=== PATIENT | female | born 1955 | race Caucasian/White ===

== ENCOUNTER 2018-11-25 08:40 | Outpatient (CLI) | payer MEDICARE, MEDICAID ==
--- NOTE | 2018-11-25 10:10 | BD ---
DEXA BONE DENSITOMETRY: (Dual energy X-ray Absorptiometry) DATE: 11/25/2018. HISTORY: A 63-year-old white female for postmenopausal, age-related osteoporosis screening examination. COMPARISON: None available. FINDINGS: The bone mineral density (BMD) is given in grams per square centimeter (g/cm2): Height 64 inches. Weight 149 pounds. Age of menopause 41 years. LUMBAR SPINE: BMD(g/cm2) T-score Z-score L1: 0.729 -2.4 -1.0 L2: 0.715 -2.8 -1.3 L3: 0.697 -3.5 -1.9 L4: 0.635 -3.9 -2.2 Total: 0.694 -3.2 -1.7 HIP: Femoral neck: 0.498 -3.2 -1.8 Total: 0.673 -2.2 -1.2 IMPRESSION: 1) The mean bone mineral density of the lumbar spine is osteoporotic. Fracture risk is high. 2) The bone mineral density of the femoral neck is osteoporotic. Fracture risk is high. BETH Rutherford POS: IAN
== END 2018-11-25 08:41 | disposition home or self-care (01) ==
LOC: BICMAMMO 08:40
PROVIDERS: ATTEND Internal Medicine Rheumatology
DX: M81.0 Age-related osteoporosis without current pathological fracture (principal)
CPT/HCPCS: 77080

== ENCOUNTER 2019-02-13 08:36 | Outpatient (CLI) | payer MEDICARE, MEDICAID ==
--- NOTE | 2019-02-17 06:46 | MMO ---
Bilateral MAMMO Bilat Screen [facility]FL[facility]. CLINICAL HISTORY: Patient is 63 years old and is seen for screening. The patient has the following family history of breast cancer: cousin female, at age 45, MATERNAL X2. The patient has no personal history of cancer. VIEWS: The views performed were: bilateral craniocaudal with tomosynthesis and bilateral mediolateral oblique with tomosynthesis. FILMS COMPARED: The present examination has been compared to prior imaging studies performed at [facility] on 09/24/2007, 02/10/2009, 02/13/2010 and 08/28/2016. MAMMOGRAM FINDINGS: There are scattered fibroglandular densities. There are no suspicious masses, suspicious calcifications, or new areas of architectural distortion. IMPRESSION: THERE IS NO MAMMOGRAPHIC EVIDENCE OF MALIGNANCY. A ROUTINE FOLLOW-UP MAMMOGRAM IN 1 YEAR IS RECOMMENDED. THE RESULTS OF THIS EXAM WERE SENT TO THE PATIENT. ACR BI-RADS Category 1 - Negative MAMMOGRAPHY NOTE: 1. A negative mammogram report should not delay a biopsy if a dominant of clinically suspicious mass is present. 2. Approximately 10% to 15% of breast cancers are not detected by mammography. 3. Adenosis and dense breasts may obscure an underlying neoplasm. Reported by: BRAD CLARKE MD Electonically Signed: [id number]
== END 2019-02-13 08:37 | disposition home or self-care (01) ==
LOC: BICMAMMO 08:36
PROVIDERS: ATTEND Family Medicine
DX: Z12.31 Encounter for screening mammogram for malignant neoplasm of breast (principal); Z80.3 Family history of malignant neoplasm of breast
CPT/HCPCS: 77063; 77067

== ENCOUNTER 2019-05-05 12:08 | Outpatient (CLI) | payer MEDICARE, OTHER ==
[~2019-05-05 12:08] MED LIST: ISOVUE-370 76%-LOCM 1 ML ONE
--- NOTE | 2019-05-05 13:28 | CT ---
Exam: Chest CT scan with IV contrast: HISTORY: Follow-up lung mass COMPARISON: Chest 2 views, 04/24/2019 FINDINGS: The previously noted mass opacity seen in the right middle lobe on the prior study is no longer evide nt. There is some scattered linear parenchymal changes in the right middle lobe evidence for mild pneumonitis or subsegmental atelectasis or chronic change. There is some very minute linear parenchym al changes in the lingula. There is bilateral peribronchial thickening. There is no mediastinal mass or adenopathy. No pleural effusion or pericardial effusion. Visualized upper abdomen is unremark able. Small calcified granuloma in the right middle lobe. IMPRESSION: Some persistent linear stranding in the right middle lobe and very minute linear stranding in the bisi gula, nonspecific. This could represent some minimal persistent pneumonitis, partial atelectasis, or scarring. Consider 6 month follow-up chest CT scan for further assessment. Bilateral peribronchial thickening, nonspecific, possibly related to chronic bronchitis.
== END 2019-05-05 12:09 | disposition home or self-care (01) ==
LOC: BICCT 12:08
PROVIDERS: ATTEND Family Medicine
DX: R91.8 Other nonspecific abnormal finding of lung field (principal); J98.4 Other disorders of lung
CPT/HCPCS: 71260; 82565; Q9966

== ENCOUNTER 2019-05-21 21:50 | Inpatient (IN) | payer MEDICARE, OTHER ==
[2019-05-21 22:24] LABS: #Eosinphils 0.1 thou/uL (0.0-0.7); #Lymphocytes 2.6 thou/uL (1.20-3.40); #Monocytes 0.8 thou/uL (0.11-0.59); #Neutrophils 5.2 thou/uL (1.40-6.50); %Basophils 0.3 % (0.0-1.0); %Eosinophils 1.6 % (0.0-10.0); %Lymphocytes 29.1 % (21.0-51.0); %Monocytes 9.4 % (0.0-10.0); %Neutrophils 59.7 % (42.0-75.0); Hemoglobin 12.4 g/dL (12.0-16.0); Mean Corpuscular HGB CONC 33.3 g/dL (32.0-36.0); Mean Corpuscular Hemoglobin 29.7 pg (27.0-31.0); Mean Corpuscular Volume 89.1 fL (78.0-98.0); Mean Platelet Volume 6.6 fL (7.4-10.4); Platelet Count 244 thou/uL (130-400); RBC Distribution Width 13.5 % (11.5-14.5); Red Blood Cell (RBC) Count 4.16 mill/uL (4.20-5.40); White Blood Cell (WBC) Count 8.8 thou/uL (4.8-10.8)
--- NOTE | 2019-05-21 22:33 | RAD ---
EXAM: Chest one view: HISTORY: COPD exacerbation COMPARISON: 04/24/2019 FINDINGS: Stable increased linear and interstitial markings noted bilaterally without evidence for confluent pr ocess. The previously noted somewhat nodular parenchymal process in the right lower chest has resolved. Heart size: Within normal limits. Lungs: Clear of acute process. No evidence for confluent pneumonia, pleural effusion, acute edema, or pneumothorax, or other signifi cant acute process. IMPRESSION: No significant acute intrathoracic disease. Stable chronic lung changes. Atherosclerosis of the aorta.
[2019-05-21 22:45] LABS: ALT (SGPT) 15 U/L (8-55); AST (SGOT) 15 U/L (5-34); Albumin 4.1 g/dL (3.4-4.8); Alkaline Phosphatase 78 U/L (40-110); Anion Gap 10 mmol/L (10-20); BUN (Urea Nitrogen) 22 mg/dL (9.8-20.1); Bilirubin, Total 0.5 mg/dL (0.2-1.2); Calc. Creatinine Clearance 0 mL/min (70-130); Carbon Dioxide 31 mmol/L (23-31); Chloride 104 mmol/L (98-107); Estimated GFR-MDRD 63; Globulin 2.9 g/dL (2.4-3.5); Glucose 139 mg/dL (80-115); Lipase 21 U/L (8-78); Potassium 4.1 mmol/L (3.5-5.1); Sodium 141 mmol/L (136-145)
[2019-05-21] MEDS ORDERED: Albuterol Sulfate 2.5 mg/0.5 ml Neb ONE (23:05)
[2019-05-21] MEDS ORDERED: Albuterol Sulfate 2.5 mg/3 ml Neb ONE (23:31)
[2019-05-22] MEDS ORDERED: Bacteriostatic Water 30 ML VIAL FS PRN (02:55)
[2019-05-22] MEDS ORDERED: Ondansetron PF 4 MG/2 ML Vial IVP PRN (02:57)
[2019-05-22] MEDS ORDERED: Ondansetron ODT 4 MG TAB SL PRN (02:57)
[2019-05-22] MEDS ORDERED: Albuterol Sulfate 2.5 mg/3 ml Neb NEB PRN (02:57)
[2019-05-22] MEDS ORDERED: Acetaminophen 325 MG TAB PO PRN ×2 (02:57→11:39)
[2019-05-22 03:14] VITALS: BMI 25.0
[2019-05-22] MEDS ORDERED: methylPREDNISolone Sod Succ/PF 125 MG/2 ML VIAL IVP SCH (04:00)
[2019-05-22] MEDS ORDERED: Prevnar 13-Val Conj/PF 0.5 ML SYRINGE IM ONE (09:00)
[2019-05-22] MEDS ORDERED: FLU VACC QS2019-20(6MOS UP)/PF 60 MCG/0.5 ML SYRINGE IM ONE (09:00)
[2019-05-22] MEDS ORDERED: Bisacodyl 5 MG TAB PO PRN (11:39)
[2019-05-22] MEDS: Azithromycin 500 MG in Sodium Chloride 0.9% 250 ML 250 ML IVPB SCH (12:20)
[2019-05-22] MEDS: methylPREDNISolone Sod Succ 40 MG VIAL IVP SCH ×2 (12:20→17:03)
[2019-05-22] MEDS: cefTRIAXone\\ROCEPHIN 1 GM in Sodium Chloride 0.9% 100 ML IVPB SCH (13:54)
--- NOTE | 2019-05-22 13:59 | HP ---
PRIMARY CARE PROVIDER: Mart Velasquez MD CHIEF COMPLAINT: Shortness of breath. HISTORY OF PRESENT ILLNESS: Ms. iLma is a pleasant 64-year-old lady, who was seen at [facility] on May 22, 2019, She has a history of COPD, followed by Dr. Grimes. She reports that she saw him a couple of weeks ago. Over the last week, she developed cough. Cough was productive of thick yellow sputum. She also reports shortness of breath over the last day. Shortness of breath is worse with exertion. She denies any fevers or chills. She denies any nausea or vomiting. She denies any abdominal pain. REVIEW OF SYSTEMS: All systems were reviewed and found to be negative except for the pertinent positives mentioned above. PAST MEDICAL HISTORY: COPD, lupus, hypothyroidism, dyslipidemia and gastroesophageal reflux disease. PAST SURGICAL HISTORY: None. FAMILY HISTORY: Significant for heart disease in her mother's side of family. SOCIAL HISTORY: The patient is an ex-smoker. She denies recreational drug use or alcohol use. ALLERGIES: CODEINE AND SULFA. CURRENT MEDICATIONS: 1. Symbicort 160/4.5, two puffs 2 times a day. 2. Nexium 40 mg daily. 3. Plaquenil 200 mg 2 times a day. 4. Synthroid 75 mcg daily. 5. Pravastatin 40 mg daily. 6. Prednisone 5 mg daily. 7. Solifenacin 5 mg daily. PHYSICAL EXAMINATION: GENERAL: Ms. Lima is awake and alert, not in acute distress. VITAL SIGNS: Blood pressure is 113/64, pulse 84, respiratory rate 17, and oxygen saturation 90% on 1 L of oxygen by nasal cannula. BMI is 25.1. EYES: No scleral icterus, no conjunctival pallor. ENT: Moist mucosal membranes. No oropharyngeal erythema or exudates. NECK: Supple, nontender, trachea is midline. RESPIRATORY: Accessory muscles of breathing are not active. Chest wall movements are symmetric bilaterally. Markedly diminished breath sounds at both bases. ABDOMEN: Soft, nontender, bowel sounds heard. NEUROLOGIC: Cranial nerves 2 through 12 are intact. MUSCULOSKELETAL: Power is 5/5 in all 4 extremities. SKIN: No rashes. LYMPHATIC: No cervical lymphadenopathy. PSYCHIATRIC: Normal mood, normal affect, the patient is oriented to person, place, and time. LABORATORY DATA: Ms. Lima's labs and investigations were reviewed. I reviewed her electrocardiogram, which shows normal sinus rhythm, no ST changes to suggest any acute coronary syndrome. I also reviewed her chest x-ray, which does not show any pulmonary infiltrates. She has normal white count, normal hemoglobin, normal platelet count, elevated blood urea nitrogen of 22, otherwise unremarkable comprehensive metabolic profile, normal BNP of 16.5 and normal troponin-I of less than 0.010. ASSESSMENT AND PLAN: Ms. Lima is a pleasant 64-year-old lady, who was seen at [facility] on May 22, 2019, Her problem list includes: 1. Chronic obstructive pulmonary disease exacerbation: Ms. Lima is presenting with COPD exacerbation. She will be treated with oxygen, steroids, bronchodilators, and antibiotics. We will also consult Pulmonology Service for opinion and help with management. 2. Lupus: We will continue Plaquenil. The patient is being treated with IV steroids for chronic obstructive pulmonary disease exacerbation, we will hold prednisone. 3. Hypothyroidism: Continue Synthroid. 4. Dyslipidemia: Continue statin. 5. Gastroesophageal reflux disease: Continue PPI. Many thanks for allowing me to participate in your patient's care. Please feel free to contact me with any questions or concerns. LEVEL OF RISK: High. LEVEL OF COMPLEXITY: High. Job ID: [id number]
[2019-05-22] MEDS: Mometasone/Formoterol 120 PUFF INHALER INH SCH (18:59)
[2019-05-22] MEDS: Atorvastatin Calcium 10 MG TAB PO SCH (20:25)
[2019-05-22] MEDS: Hydroxychloroquine Sulfate 200 MG TAB PO SCH (20:25)
[2019-05-22] MEDS: Trospium 20 MG TAB PO SCH (20:25)
[2019-05-23] MEDS: methylPREDNISolone Sod Succ 40 MG VIAL IVP SCH ×4 (00:54→18:00)
[2019-05-23] MEDS: Levothyroxine Sodium 75 MCG TAB PO SCH (05:26)
[2019-05-23] MEDS: Trospium 20 MG TAB PO SCH ×2 (08:04→20:19)
[2019-05-23] MEDS: Hydroxychloroquine Sulfate 200 MG TAB PO SCH ×2 (08:04→20:19)
[2019-05-23] MEDS: Enoxaparin Sodium 40 MG/0.4 ML SYRINGE SC SCH (08:04)
[2019-05-23 08:56] LABS: Anion Gap 12 mmol/L (10-20); BUN (Urea Nitrogen) 16 mg/dL (9.8-20.1); Calc. Creatinine Clearance 80 mL/min (70-130); Calcium 9.5 mg/dL (7.8-10.44); Carbon Dioxide 25 mmol/L (23-31); Chloride 107 mmol/L (98-107); Estimated GFR-MDRD 77; Glucose 190 mg/dL (80-115); Potassium 3.9 mmol/L (3.5-5.1); Sodium 140 mmol/L (136-145)
[2019-05-23 09:54] LABS: Band 33 % (5-11); Hemoglobin 12.9 g/dL (12.0-16.0); Lymphocytes 4 % (21-51); MDiff Complete? YES; Mean Corpuscular HGB CONC 32.7 g/dL (32.0-36.0); Mean Corpuscular Hemoglobin 29.6 pg (27.0-31.0); Mean Corpuscular Volume 90.6 fL (78.0-98.0); Mean Platelet Volume 6.9 fL (7.4-10.4); Monocytes 3 % (0-10); Neutrophil 58 % (42-75); Platelet Count 334 thou/uL (130-400); RBC Distribution Width 13.8 % (11.5-14.5); Reactive Lymphocytes 2 % (0-10); Red Blood Cell (RBC) Count 4.35 mill/uL (4.20-5.40); Rouleaux Formation SLIGHT = 1-5 cells (100X) (None Seen); White Blood Cell (WBC) Count 18.4 thou/uL (4.8-10.8)
[2019-05-23] MEDS: Mometasone/Formoterol 120 PUFF INHALER INH SCH ×2 (11:05→18:33)
[2019-05-23] MEDS: Azithromycin 500 MG in Sodium Chloride 0.9% 250 ML 250 ML IVPB SCH (11:51)
[2019-05-23] MEDS: cefTRIAXone\\ROCEPHIN 1 GM in Sodium Chloride 0.9% 100 ML IVPB SCH (13:10)
[2019-05-23] MEDS: Atorvastatin Calcium 10 MG TAB PO SCH (20:19)
--- NOTE | 2019-05-23 22:36 | CON ---
DATE OF CONSULTATION: SUBJECTIVE: Rufina Lima is a pleasant 64-year-old female with COPD, who is followed by Dr. Grimes. She presented with complaints of shortness of breath over the last week associated with cough and thick sputum. She presented to the emergency room, subsequently admitted. PAST MEDICAL HISTORY: Remarkable for; 1. COPD. 2. Hypothyroidism. 3. Lipid disorder. 4. Reflux disease. 5. Reported history of lupus. FAMILY HISTORY: Positive for vascular disease. No history of lung disease at an early age. She no longer smokes. She does not drink. ALLERGIES: SHE IS ALLERGIC TO CODEINE AND SULFA. MEDICATIONS: Have been reviewed. REVIEW OF SYSTEMS: 10 points is negative. She says she is feeling better, but she is nowhere near her baseline. PHYSICAL EXAMINATION: VITAL SIGNS: Heart rate 105 earlier today, 78 this afternoon; respiratory rate in the teens, oximetry is 95%. HEENT: Pupils are equal. Sclerae anicteric. NECK: Supple. LUNGS: Remarkable for distant breath sounds. HEART: Regular rhythm. S1, S2 are normal. ABDOMEN: Soft and nontender. EXTREMITIES: Without clubbing, cyanosis, or edema. NEUROLOGIC: Nonfocal. IMAGING DATA: Chest radiographs have been reviewed. No infiltrates. LABORATORY DATA: White count 18.4, hemoglobin 12.9, platelets 334. Electrolytes are normal. Creatinine is 0.76. Albumin was 4.1. IMPRESSION: Chronic obstructive pulmonary disease exacerbation. PLAN: Steroids, nebulized treatments, fluids. We will be happy to follow with the other physicians caring for her. Hopefully, she will be a candidate to go home by Saturday or Saturday. Job ID: [id number] 50 minute consult with 50% of time on unit coordinating care [facility]
[2019-05-24] MEDS: methylPREDNISolone Sod Succ 40 MG VIAL IVP SCH ×4 (00:31→20:23)
[2019-05-24] MEDS: Levothyroxine Sodium 75 MCG TAB PO SCH (05:33)
[2019-05-24 06:11] LABS: Anion Gap 13 mmol/L (10-20); BUN (Urea Nitrogen) 20 mg/dL (9.8-20.1); Calc. Creatinine Clearance 79 mL/min (70-130); Calcium 9.4 mg/dL (7.8-10.44); Carbon Dioxide 28 mmol/L (23-31); Chloride 104 mmol/L (98-107); Estimated GFR-MDRD 76; Glucose 206 mg/dL (80-115); Magnesium 2.4 mg/dL (1.6-2.6); Potassium 4.9 mmol/L (3.5-5.1); Sodium 140 mmol/L (136-145)
[2019-05-24 06:32] LABS: Band 8 % (5-11); Hemoglobin 12.2 g/dL (12.0-16.0); Lymphocytes 5 % (21-51); MDiff Complete? YES; Mean Corpuscular HGB CONC 32.1 g/dL (32.0-36.0); Mean Corpuscular Hemoglobin 29.1 pg (27.0-31.0); Mean Corpuscular Volume 90.6 fL (78.0-98.0); Mean Platelet Volume 6.8 fL (7.4-10.4); Monocytes 4 % (0-10); Neutrophil 83 % (42-75); Platelet Count 343 thou/uL (130-400); RBC Distribution Width 13.8 % (11.5-14.5); White Blood Cell (WBC) Count 16.2 thou/uL (4.8-10.8)
[2019-05-24] MEDS: Hydroxychloroquine Sulfate 200 MG TAB PO SCH ×2 (08:30→20:23)
[2019-05-24] MEDS: Enoxaparin Sodium 40 MG/0.4 ML SYRINGE SC SCH (08:30)
[2019-05-24] MEDS: Trospium 20 MG TAB PO SCH ×2 (08:30→20:22)
[2019-05-24] MEDS: Mometasone/Formoterol 120 PUFF INHALER INH SCH ×2 (08:34→19:23)
--- NOTE | 2019-05-24 09:16 | PDOC.HOSPP ---
- Subjective Encounter Date: 05/23/19 Encounter Time: 09:15 Subjective: Patient seen and examined for COPD exacerbation. SOB/Wheezing improving. Dry cough +. No new complaints. No overnight events - Objective Vital Signs & Weight: Vital Signs (12 hours) Temp Pulse Resp BP Pulse Ox 05/24/19 08:34 86 16 05/24/19 08:25 86 16 96 05/24/19 07:49 98.0 F 92 20 137/74 93 L Weight Weight 146 lb I&O: 05/23/19 05/24/19 05/25/19 06:59 06:59 06:59 Intake Total 830 1400 Balance 830 1400 Result Diagrams: 05/24/19 05:36 05/24/19 05:36 Radiology Reviewed by me: Yes (CXR - no infiltrate) Hospitalist ROS - Review of Systems Respiratory: reports: SOB with excertion, wheezing Cardiovascular: denies: chest pain, palpitations, orthopnea, paroxysmal noc. dyspnea, edema, light headedness, other Gastrointestinal: denies: nausea, vomiting, abdominal pain, diarrhea, constipation, melena, hematochezia, other - Medication Medications: Active Medications Generic Name Dose Route Start Last Admin Trade Name Freq PRN Reason Stop Dose Admin Albuterol/Ipratropium 3 ml 05/23/19 15:00 05/24/19 08:25 Duoneb NEB 3 ml [id number] MAKENNA Administration Atorvastatin Calcium 10 mg 05/22/19 21:00 05/23/19 20:19 Lipitor PO 10 mg HS MAKENNA Administration Hydroxychloroquine Sulfate 200 mg 05/22/19 21:00 05/24/19 08:30 Plaquenil PO 200 mg BID MAKENNA Administration Azithromycin 500 mg/ Sodium 250 mls @ 250 mls/hr 05/22/19 12:00 05/23/19 11: 51 Chloride IVPB 250 mls Q24HR MAKENNA Administration Ceftriaxone Sodium 1 gm/ 100 mls @ 200 mls/hr 05/22/19 13:00 05/23/19 13:10 Sodium Chloride IVPB 100 mls 1300 MAKENNA Administration Levothyroxine Sodium 75 mcg 05/23/19 06:00 05/24/19 05:33 Synthroid PO 75 mcg 0600 MAKENNA Administration Mometasone Furoate/Formoterol Fumar 2 puff 05/22/19 18:30 05/24/19 08:34 Dulera 200 Mcg/5 Mcg Inhaler INH 2 puff BID-RT MAKENNA Administration Pantoprazole Sodium 40 mg 05/23/19 09:00 05/24/19 08:30 Protonix PO 40 mg DAILY MAKENNA Administration Trospium 20 mg 05/22/19 21:00 05/24/19 08:30 Trospium PO 20 mg BID MAKENNA Administration - Exam General Appearance: NAD Heart: RRR, no gallops Respiratory: no rales, no ronchi, normal chest expansion, wheezes Gastrointestinal: soft, non-tender, non-distended, normal bowel sounds Extremities: no edema Neurological: no new deficit Hosp A/P - Plan DVT proph w/SCDs Acute hypoxic resp failure/COPD Exacerbation - POA HLD GERD Hypothyrodism CKD 2 Former smoker SLE PLAN: Cont Steroids/Atbx Add O2 humification Cont Levothyroxine Add Mucinex Cont other meds
[2019-05-24] MEDS ORDERED: Saccharomyces boulardii 250 MG CAP PO SCH (10:30)
[2019-05-24] MEDS ORDERED: guaiFENesin ER 600 MG TAB PO SCH (11:00)
[2019-05-24] MEDS: Azithromycin 500 MG in Sodium Chloride 0.9% 250 ML 250 ML IVPB SCH (12:06)
[2019-05-24] MEDS: cefTRIAXone\\ROCEPHIN 1 GM in Sodium Chloride 0.9% 100 ML IVPB SCH (12:09)
--- NOTE | 2019-05-24 12:55 | PDOC.HOSPP ---
- Subjective Encounter Date: 05/24/19 Encounter Time: 11:45 Subjective: Patient seen and examined for Resp failure. Dry cough. SOB improving. No other complaints. No overnight events - Objective Vital Signs & Weight: Vital Signs (12 hours) Temp Pulse Resp BP Pulse Ox 05/24/19 12:04 92 20 05/24/19 08:34 86 16 05/24/19 08:25 86 16 96 05/24/19 08:00 94 L 05/24/19 07:49 98.0 F 92 20 137/74 93 L Weight Weight 146 lb I&O: 05/23/19 05/24/19 05/25/19 06:59 06:59 06:59 Intake Total 830 1400 Balance 830 1400 Result Diagrams: 05/24/19 05:36 05/24/19 05:36 Hospitalist ROS - Review of Systems Cardiovascular: denies: chest pain, palpitations, orthopnea, paroxysmal noc. dyspnea, edema, light headedness, other Gastrointestinal: denies: nausea, vomiting, abdominal pain, diarrhea, constipation, melena, hematochezia, other - Medication Medications: Active Medications Generic Name Dose Route Start Last Admin Trade Name Freq PRN Reason Stop Dose Admin Albuterol/Ipratropium 3 ml 05/23/19 15:00 05/24/19 12:04 Duoneb NEB 3 ml [id number] MAKENNA Administration Atorvastatin Calcium 10 mg 05/22/19 21:00 05/23/19 20:19 Lipitor PO 10 mg HS MAKENNA Administration Guaifenesin 600 mg 05/24/19 11:00 05/24/19 10:54 Mucinex PO 05/24/19 13:00 600 mg NOW MAKENNA Administration Hydroxychloroquine Sulfate 200 mg 05/22/19 21:00 05/24/19 08:30 Plaquenil PO 200 mg BID MAKENNA Administration Azithromycin 500 mg/ Sodium 250 mls @ 250 mls/hr 05/22/19 12:00 05/24/19 12: 06 Chloride IVPB 250 mls Q24HR MAKENNA Administration Ceftriaxone Sodium 1 gm/ 100 mls @ 200 mls/hr 05/22/19 13:00 05/24/19 12:09 Sodium Chloride IVPB 100 mls 1300 MAKENNA Administration Levothyroxine Sodium 75 mcg 05/23/19 06:00 05/24/19 05:33 Synthroid PO 75 mcg 0600 MAKENNA Administration Mometasone Furoate/Formoterol Fumar 2 puff 05/22/19 18:30 05/24/19 08:34 Dulera 200 Mcg/5 Mcg Inhaler INH 2 puff BID-RT MAKENNA Administration Pantoprazole Sodium 40 mg 05/23/19 09:00 05/24/19 08:30 Protonix PO 40 mg DAILY MAKENNA Administration Trospium 20 mg 05/22/19 21:00 05/24/19 08:30 Trospium PO 20 mg BID MAKENNA Administration - Exam General Appearance: NAD Heart: RRR, no gallops Respiratory: no rales, rhonchi, wheezes Gastrointestinal: soft, non-distended, normal bowel sounds Extremities: no edema Hosp A/P - Plan DVT proph w/SCDs Acute hypoxic resp failure/COPD Exacerbation HLD GERD Hypothyrodism CKD 2 Former smoker SLE PLAN: Cont IV Ceftriaxone and Azithromycin Reduce IV Solumedrol to 40 mg Q8h Cont other meds Wean O2 as tolerated Home O2 assessment at in
[2019-05-24] MEDS: Atorvastatin Calcium 10 MG TAB PO SCH (20:22)
[2019-05-24] MEDS: guaiFENesin ER 600 MG TAB PO SCH (20:23)
--- NOTE | 2019-05-24 20:44 | PRG ---
DATE OF SERVICE: 05/24/2019 SUBJECTIVE: Rufina Lima says she is feeling better. OBJECTIVE: VITAL SIGNS: She is afebrile. Heart rate is in the 90s, respiratory rate 16, oximetry is 96% on 2 L, blood pressure 130/64. LUNGS: Have improved significantly compared to yesterday. HEART: Regular rhythm. ABDOMEN: Soft. LABORATORY DATA: White count 16.2, hemoglobin 12.2, platelets 343,000. Electrolytes are normal. IMPRESSION: Chronic obstructive pulmonary disease exacerbation, improving. PLAN: Continue current care. Hopefully, she will be a candidate for discharge in 24 to 48 hours. Job ID: [id number]
[2019-05-24] MEDS: Cefuroxime Axetil 250 MG TAB PO SCH (20:57)
[2019-05-25] MEDS: methylPREDNISolone Sod Succ 40 MG VIAL IVP SCH ×3 (05:37→21:07)
[2019-05-25] MEDS: Levothyroxine Sodium 75 MCG TAB PO SCH (05:37)
[2019-05-25] MEDS: Mometasone/Formoterol 120 PUFF INHALER INH SCH ×2 (07:17→18:27)
[2019-05-25] MEDS: Cefuroxime Axetil 250 MG TAB PO SCH ×2 (09:23→20:48)
[2019-05-25] MEDS: guaiFENesin ER 600 MG TAB PO SCH ×2 (09:24→20:47)
[2019-05-25] MEDS: Hydroxychloroquine Sulfate 200 MG TAB PO SCH ×2 (09:24→20:48)
[2019-05-25] MEDS: Saccharomyces boulardii 250 MG CAP PO SCH (09:24)
[2019-05-25] MEDS: Trospium 20 MG TAB PO SCH ×2 (09:24→20:48)
--- NOTE | 2019-05-25 16:05 | PRG ---
DATE OF SERVICE: 05/25/2019 SUBJECTIVE: She wants to go home today. OBJECTIVE: VITAL SIGNS: Her saturations are 95% on 2 L, pulse 76, blood pressure is 159/76, and respiratory rate 18. CHEST: Decreased breath sounds without any wheezing. CARDIAC: Normal S1-S2. No gallops. ABDOMEN: No mass. IMPRESSION AND PLAN: Chronic obstructive pulmonary disease exacerbation, bronchitis, and former smoker. She will be discharged home. She needs a new nebulizer, otherwise tapering dose of prednisone for 2 weeks. She already has Symbicort at home. Empiric antibiotics for several days. Follow up in the office as needed. Job ID: [id number]
[2019-05-25] MEDS: Atorvastatin Calcium 10 MG TAB PO SCH (20:47)
[2019-05-26 05:29] VITALS: TEMP 97.7
[2019-05-26] MEDS: Levothyroxine Sodium 75 MCG TAB PO SCH (05:32)
[2019-05-26] MEDS: methylPREDNISolone Sod Succ 40 MG VIAL IVP SCH (05:34)
[2019-05-26] MEDS: Mometasone/Formoterol 120 PUFF INHALER INH SCH (06:58)
--- NOTE | 2019-05-26 07:20 | PDOC.HOSPP ---
- Subjective Encounter Date: 05/25/19 Encounter Time: 16:00 Subjective: Patient seen and examined for COPD exacerbation. Unable to wean off O2. 84% on RA on ambulation. No new complaints. No overnight events - Objective Vital Signs & Weight: Vital Signs (12 hours) Temp Pulse Resp BP Pulse Ox 05/26/19 06:59 95 16 95 05/26/19 06:58 95 16 95 05/26/19 04:00 97.7 F 92 18 134/74 92 L 05/26/19 01:51 91 18 97 05/26/19 00:00 98.4 F 95 18 141/71 H 96 05/25/19 22:52 87 16 93 L 05/25/19 20:00 97.7 F 91 18 130/70 93 L Weight Weight 146 lb I&O: 05/25/19 05/26/19 05/27/19 06:59 06:59 06:59 Intake Total 1300 3580 Balance 1300 3580 Result Diagrams: 05/24/19 05:36 05/24/19 05:36 Hospitalist ROS - Review of Systems Cardiovascular: denies: chest pain, palpitations, orthopnea, paroxysmal noc. dyspnea, edema, light headedness, other Gastrointestinal: denies: nausea, vomiting, abdominal pain, diarrhea, constipation, melena, hematochezia, other - Medication Medications: Active Medications Generic Name Dose Route Start Last Admin Trade Name Freq PRN Reason Stop Dose Admin Albuterol/Ipratropium 3 ml 05/22/19 11:39 05/26/19 01:51 Duoneb NEB 3 ml Q4H PRN Administration SOB &/or Wheezing Albuterol/Ipratropium 3 ml 05/23/19 15:00 05/26/19 06:59 Duoneb NEB 3 ml [id number] MAKENNA Administration Atorvastatin Calcium 10 mg 05/22/19 21:00 05/25/19 20:47 Lipitor PO 10 mg HS MAKENNA Administration Cefuroxime Axetil 250 mg 05/24/19 21:00 05/25/19 20:48 Ceftin PO 250 mg Q12HR MAKENNA Administration Guaifenesin 600 mg 05/24/19 21:00 05/25/19 20:47 Mucinex PO 600 mg Q12HR MAKENNA Administration Hydroxychloroquine Sulfate 200 mg 05/22/19 21:00 05/25/19 20:48 Plaquenil PO 200 mg BID MAKENNA Administration Levothyroxine Sodium 75 mcg 05/23/19 06:00 05/26/19 05:32 Synthroid PO 75 mcg 0600 MAKENNA Administration Methylprednisolone Sodium Succinate 40 mg 05/24/19 14:00 05/26/19 05:34 Solu-Medrol IVP 40 mg Q8HR MAKENNA Administration Mometasone Furoate/Formoterol Fumar 2 puff 05/22/19 18:30 05/26/19 06:58 Dulera 200 Mcg/5 Mcg Inhaler INH 2 puff BID-RT MAKENNA Administration Pantoprazole Sodium 40 mg 05/23/19 09:00 05/25/19 09:24 Protonix PO 40 mg DAILY MAKENNA Administration Saccharomyces Boulardii 250 mg 05/25/19 09:00 05/25/19 09:24 Florastor PO 250 mg DAILY MAKENNA Administration Trospium 20 mg 05/22/19 21:00 05/25/19 20:48 Trospium PO 20 mg BID MAKENNA Administration - Exam General Appearance: NAD Heart: RRR, no gallops Respiratory: no rales, rhonchi Gastrointestinal: non-tender, non-distended, normal bowel sounds Hosp A/P - Plan DVT proph w/SCDs Acute hypoxic resp failure/COPD Exacerbation HLD GERD Hypothyrodism CKD 2 Former smoker SLE PLAN: Change Steroids to PO Atbx changed to PO Stable for dc after home O2 setup today - Consult CM - forms completed Cont other meds
[2019-05-26 07:25] VITALS: BP 169/87
[2019-05-26] MEDS ORDERED: predniSONE 20 MG TAB PO SCH (08:00)
[2019-05-26] MEDS: Cefuroxime Axetil 250 MG TAB PO SCH (08:22)
[2019-05-26] MEDS: Hydroxychloroquine Sulfate 200 MG TAB PO SCH (08:22)
[2019-05-26] MEDS: Trospium 20 MG TAB PO SCH (08:23)
[2019-05-26] MEDS: Saccharomyces boulardii 250 MG CAP PO SCH (08:23)
[2019-05-26] MEDS: guaiFENesin ER 600 MG TAB PO SCH (08:23)
--- NOTE | 2019-05-26 09:41 | PRG ---
DATE OF SERVICE: 05/26/2019 SUBJECTIVE: This morning, she is better. OBJECTIVE: VITAL SIGNS: Temperature 97, pulse 95, saturations on 2 L, and blood pressure 169/87. CHEST: Decreased breath sounds. No wheezing. CARDIAC: Normal S1 and S2. No gallops. ABDOMEN: No mass. IMPRESSION: Chronic obstructive pulmonary disease exacerbation, bronchitis, former smoker. Pulmonary sommer, she can be discharged home. Follow up with the primary care physician. Job ID: [id number]
--- NOTE | 2019-05-26 10:22 | DIS ---
DATE OF ADMISSION: 05/21/2019 DATE OF DISCHARGE: 05/25/2019 FINAL DIAGNOSES: 1. Exacerbation of chronic obstructive pulmonary disease. 2. Acute hypoxic respiratory failure. 3. Hyperlipidemia. 4. Gastroesophageal reflux disease. 5. Hypothyroidism. 6. Chronic kidney disease, stage 2. 7. Former smoker. 8. Systemic lupus erythematosus. CONSULTANTS: Dr. Jones and Dr. Grimes, Pulmonary Service. HOSPITAL COURSE: The patient is a 64-year-old female, who was admitted to the hospital with shortness of breath going on for approximately couple of weeks. She is followed by Dr. Grimes in his clinic. She started having some cough, which was productive of thick yellow sputum and her shortness of breath was obviously worse on exertion. She denied any fever or chills, nausea, vomiting, or abdominal pain. In the emergency room, she was evaluated and was found to have normal white count and normal hemoglobin level. BUN was 22, otherwise chemistry was within normal limits. BNP was 16.5. Troponin I was less than 0.010. Her chest x-ray showed no infiltrate and electrocardiogram showed sinus rhythm, no ST-T wave changes. She got admitted to the hospital for exacerbation of COPD. She was placed on oxygen, steroids, bronchodilators, and antibiotic. She will continue on her Plaquenil for her lupus and she was placed on IV steroids. Subsequently, the patient was seen by card checker, Dr. Jones, who agreed with treatment and she improved gradually to the point that her antibiotic was switched to p.o. and steroids were switched to p.o. from IV form. She is going home in good condition on oxygen. She will have to have oxygen 2 L by nasal cannula, and we are arranging nebulizers for this lady. Her blood pressure is 134/74, pulse is 92, temperature is 97.7, respirations 18, and O2 saturation is ranging from 92% to 95% on 2 L by nasal cannula. Her influenza type A and B came back negative. She is discharged in good condition on regular diet. ACTIVITIES: As tolerated. MEDICATIONS: At the time of discharge: 1. Prednisone tapered gradually. 2. Saccharomyces boulardii once a day, probiotic. 3. Hydroxychloroquine sulfate 200 mg twice a day. 4. Trospium 20 mg twice a day. 5. Levothyroxine 75 mcg once a day. 6. Pravastatin 40 mg once a day. 7. Nexium 40 mg once a day. 8. Symbicort two puffs twice a day. 9. VESIcare 5 mg once a day. 10. She will have prescription for Ceftin 250 mg twice a day for 7 days. 11. We will get her DuoNebs four times a day and guaifenesin, which is Mucinex 600 mg twice a day. FOLLOWUP: She will follow up with her primary care physician in 1 week and with card checker in 1 month. TIME SPENT: Discharge time less than 30 minutes. Job ID: [id number]
--- NOTE | 2019-05-27 10:02 | PQF ---
I did not discharge this patient. Please forward to physician who discharged the patient (Dr. Lockett). DENISE GOMEZ DAVID [id number] CLINICAL DOCUMENTATION CLARIFICATION FORM: POST DISCHARGE Addendum to original discharge summary date: ____ Late entry note date: __ DATE:05/27/2019 ATTN:SEAN GODOY Please exercise your independent, professional judgment in responding to the clarification form. Clinical indicators are provided on the bottom of this form for your review Please clarify the Diagnosis Occasioning on Admission [ ] Chronic obstructive pulmonary disease exacerbation [ ] Acute hypoxic respiratory failure [ ] Other diagnosis [ ] Unable to determine For continuity of documentation, please document condition throughout progress notes and discharge summary. Thank You. CLINICAL INDICATORS - SIGNS / SYMPTOMS / LABS SOB-Documented in ED on 05/21 by Gigi vanegas Cough,wheezing-Documented in ED on 05/21 by Gigi vanegas [id number] in ED on 05/21 by Gigi vanegas Chronic obstructive pulmonary disease exacerbation-Documented in ED on 05/21 by Gigi vanegas Former smoker-Documented in hospitalist progress note on 05/23 by Amadou aguilar Acute hypoxic resp failure/COPD Excerbation-Documented in hospitalist progress note on 05/23 by Amadou aguilar Os sat by pulse [id number] in clinical panels RISK FACTORS Former smoker-Documented in hospitalist progress note on 05/23 by Amadou aguilar GERD-Documented in DS on 05/25 by Xavi Lockett CKD 2-Documented in DS on 05/25 by Xavi Lockett TREATMENTS: Cont steroids/Atbx-Documented in hospitalist progress note on 05/23 by Amadou aguilar Add O2 humification-Documented in hospitalist progress note on 05/23 by Ladha lauren [employer] Win[employer] View[employer](This form is maintained as a part of the permanent medical record) 2015 [employer]. All Rights Reserved [email or web address] [not provided] [email or web address]
--- NOTE | 2019-05-30 19:50 | EKG ---
Test Reason : Blood Pressure : / mmHG Vent. Rate : 096 BPM Atrial Rate : 096 BPM P-R Int : 120 ms QRS Dur : 086 ms QT Int : 362 ms P-R-T Axes : 056 068 082 degrees QTc Int : 457 ms Normal sinus rhythm Normal ECG Confirmed by FRANCISCO J TELLO D.O. ([id number]), editor [employer] BRAD RING ([id number]) on 05/30/2019 7:48:55 PM Referred By: Confirmed By:FRANCISCO J TELLO D.O.
== END 2019-05-26 15:12 | disposition home or self-care (01) | DRG 190 ==
LOC: ERS 21:50 → T4-A 23:09
PROVIDERS: ADMIT Family Medicine; ATTEND Family Medicine
DX: J44.1 Chronic obstructive pulmonary disease with (acute) exacerbation (principal); J96.01 Acute respiratory failure with hypoxia; M32.9 Systemic lupus erythematosus, unspecified; E78.5 Hyperlipidemia, unspecified; K21.9 Gastro-esophageal reflux disease without esophagitis; E03.9 Hypothyroidism, unspecified; Z87.891 Personal history of nicotine dependence; N18.2 Chronic kidney disease, stage 2 (mild); Z88.5 Allergy status to narcotic agent; Z88.2 Allergy status to sulfonamides
CPT/HCPCS: 36415; 71045; 80048; 80053; 83690; 83735; 83880; 84484; 85007; 85025; 85027; 87804; 90471; 90670; 93005; 94640; 96360; G0009; J0456; J0696; J1650; J2920; J2930; J3490; J7050; J7512; J7611; J7620

== ENCOUNTER 2019-06-07 03:28 | Emergency (ER) | payer MEDICARE, OTHER ==
[2019-06-07] MEDS ORDERED: Albuterol Sulfate 2.5 mg/3 ml Neb ONE ×2 (03:34→04:33)
--- NOTE | 2019-06-07 07:45 | RAD ---
EXAM: Single view of the chest HISTORY: COPD COMPARISON: 05/21/2019 FINDINGS: Single view of the chest shows a normal sized cardiomediastinal silhouette. There is no galileo dence of consolidation, mass, or pleural effusion. Degenerative changes are seen in the spine. IMPRESSION: No evidence of acute cardiopulmonary disease
== END 2019-06-07 05:20 | disposition home or self-care (01) ==
LOC: ERS 03:28
DX: J44.1 Chronic obstructive pulmonary disease with (acute) exacerbation (principal); Z87.891 Personal history of nicotine dependence; Z79.899 Other long term (current) drug therapy
CPT/HCPCS: 71045; 94640; 94644; J7611

== ENCOUNTER 2019-06-09 08:25 | Inpatient (IN) | payer MEDICARE, OTHER ==
--- NOTE | 2019-06-09 08:57 | RAD ---
EXAM: Single view of the chest HISTORY: Shortness of breath and chest tightness COMPARISON: 06/07/2019 FINDINGS: Single view of the chest shows a normal sized cardiomediastinal silhouette. There is no galileo dence of consolidation, mass, or pleural effusion. The bones are unremarkable. IMPRESSION: No evidence of acute cardiopulmonary disease
[2019-06-09] MEDS ORDERED: Albuterol Sulfate 2.5 mg/3 ml Neb ONE (09:18)
[2019-06-09] MEDS ORDERED: Magnesium 2 GM/50 ML BAG (IN WATER) ONE (09:56)
[2019-06-09 10:16] LABS: #Basophils 0.2 thou/uL (0.0-0.2); #Lymphocytes 0.4 thou/uL (1.20-3.40); #Monocytes 0.3 thou/uL (0.11-0.59); #Neutrophils 12.5 thou/uL (1.40-6.50); %Basophils 1.2 % (0.0-1.0); %Eosinophils 0.1 % (0.0-10.0); %Lymphocytes 3.2 % (21.0-51.0); %Monocytes 2.3 % (0.0-10.0); %Neutrophils 93.2 % (42.0-75.0); Hemoglobin 13.7 g/dL (12.0-16.0); Mean Corpuscular HGB CONC 32.1 g/dL (32.0-36.0); Mean Corpuscular Hemoglobin 29.5 pg (27.0-31.0); Mean Platelet Volume 6.7 fL (7.4-10.4); Platelet Count 245 thou/uL (130-400); RBC Distribution Width 14.2 % (11.5-14.5); Red Blood Cell (RBC) Count 4.64 mill/uL (4.20-5.40); White Blood Cell (WBC) Count 13.4 thou/uL (4.8-10.8)
[2019-06-09 10:29] LABS: ALT (SGPT) 22 U/L (8-55); AST (SGOT) 17 U/L (5-34); Albumin 4.1 g/dL (3.4-4.8); Alkaline Phosphatase 64 U/L (40-110); Anion Gap 13 mmol/L (10-20); BUN (Urea Nitrogen) 24 mg/dL (9.8-20.1); Bilirubin, Total 0.9 mg/dL (0.2-1.2); Calc. Creatinine Clearance 0 mL/min (70-130); Calcium 9.6 mg/dL (7.8-10.44); Carbon Dioxide 29 mmol/L (23-31); Chloride 104 mmol/L (98-107); Estimated GFR-MDRD 72; Globulin 2.3 g/dL (2.4-3.5); Glucose 171 mg/dL (80-115); Magnesium 2.2 mg/dL (1.6-2.6); Potassium 3.9 mmol/L (3.5-5.1); Protein, Total 6.4 g/dL (6.0-8.3); Sodium 142 mmol/L (136-145)
[2019-06-09 11:33] LABS: Analyzer IN Cardio ER; Base Excess (BEa) 1.1 mEq/L (-2.0 to +3.0); CO2 Tension 42.4 mmHg (35.0-45.0); Calcium, Ionized 1.22 mmol/L (1.12-1.30); Carboxyhemoglobin (COHb) 0.4 gm% (0.0-3.0); Hemoglobin (Hb) 13.6 g/dL (12.0-16.0); O2 Tension (PaO2) 77.9 mmHg (> 80.0); Potassium - ABG Lab 3.87 mmol/L (3.70-5.30); pH, Arterial 7.41 (7.35-7.45)
[2019-06-09 11:34] LABS: Puncture Site RRA
--- NOTE | 2019-06-09 12:50 | PDOC.HHP ---
Hospitalist HPI - History of Present Illness SOB x2 days History of Present Illness: 64 Y F with a PMH of SLE, GERD, HTN, COPD on home O2 who was brought to the Er by EMSon account of worsening SOB was seen in the ER a few day ago due to SIB and wheezing.She was given nebs,steroids and abx and was dc home.Pt however stated she did not get better She had a fever yday and continued to have SOB. She also has a cough productive of green sputum Due to worsening of SOB today, pt called EMS. She was given nebs and steroids by EMS and more nebs and MgSO4 in the ER. She has improved slightly but will need to be admitted for further management. Hospitalist ROS - Review of Systems Constitutional: reports: fever. denies: chills, sweats, weakness, malaise, other Eyes: denies: pain, vision change, conjunctivae inflammation, eyelid inflammation, redness, other ENT: denies: ear pain, ear discharge, nose pain, nose discharge, nose congestion , mouth pain, mouth swelling, throat pain, throat swelling, other Respiratory: reports: cough, shortness of breath, SOB with excertion, sputum, wheezing Gastrointestinal: denies: nausea, vomiting, abdominal pain, diarrhea, constipation, melena, hematochezia, other Genitourinary: denies: dysuria, frequency, incontinence, hematuria, retention, other Musculoskeletal: denies: neck pain, shoulder pain, arm pain, back pain, hand pain, leg pain, foot pain, other Skin: denies: rash, lesions, yon, bruising, other Neurological: denies: weakness, numbness, incoordination, change in speech, confusion, seizures, other Hospitalist History - Past Medical History Cardiac: reports: HTN Pulmonary: reports: COPD Endocrine: reports: Hypothyroidism Other Medical History: SLE - Past Surgical History Past Surgical History: reports: , Hernia Repair, Tonsillectomy - Family History Family History: reports: hypertension - Social History Smoking Status: Former smoker Alcohol: reports: None Drugs: reports: none Living Situation: With Family Domestic Violence: Negative Activity level: independent ambulation - Exam General Appearance: NAD, awake alert Eye: PERRL, anicteric sclera ENT: normocephalic atraumatic, no oropharyngeal lesions, moist mucosa Neck: supple, symmetric, no JVD, no thyromegaly, no lymphadenopathy, no carotid bruit Heart: RRR, no murmur, no gallops, no rubs, normal peripheral pulses Respiratory: normal chest expansion, rhonchi, wheezes Gastrointestinal: soft, non-tender, non-distended, normal bowel sounds, no palpable masses, no hepatomegaly, no splenomegaly, no bruit Extremities: no cyanosis, no clubbing, no edema Skin: normal turgor, no lesions, no rashes Neurological: cranial nerve grossly intact, normal sensation to touch, no weakness, no focal deficits, no new deficit Musculoskeletal: normal tone, normal strength, no muscle wasting Psychiatric: normal affect, normal behavior, A&O x 3 Hospitalist Results - Labs Result Diagrams: 06/09/19 09:54 06/09/19 09:54 Lab results: WBC 13.4 thou/uL (4.8-10.8) H 06/09/19 09:54 Hgb 13.7 g/dL (12.0-16.0) 06/09/19 09:54 Hct 42.7 % (36.0-47.0) 06/09/19 09:54 MCV 92.0 fL (78.0-98.0) 06/09/19 09:54 Plt Count 245 thou/uL (130-400) 06/09/19 09:54 Neutrophils % 93.2 % (42.0-75.0) H 06/09/19 09:54 ABG pH 7.41 (7.35-7.45) 06/09/19 11:24 ABG pCO2 42.4 mmHg (35.0-45.0) 06/09/19 11:24 ABG pO2 77.9 mmHg (> 80.0) 06/09/19 11:24 Sodium 142 mmol/L (136-145) 06/09/19 09:54 Potassium 3.9 mmol/L (3.5-5.1) 06/09/19 09:54 Chloride 104 mmol/L (98-107) 06/09/19 09:54 Carbon Dioxide 29 mmol/L (23-31) 06/09/19 09:54 BUN 24 mg/dL (9.8-20.1) H 06/09/19 09:54 Creatinine 0.81 mg/dL (0.6-1.1) 06/09/19 09:54 Glucose 171 mg/dL (80-115) H 06/09/19 09:54 Calcium 9.6 mg/dL (7.8-10.44) 06/09/19 09:54 Total Bilirubin 0.9 mg/dL (0.2-1.2) 06/09/19 09:54 AST 17 U/L (5-34) 06/09/19 09:54 ALT 22 U/L (8-55) 06/09/19 09:54 Alkaline Phosphatase 64 U/L (40-110) 06/09/19 09:54 Troponin I 0.018 ng/mL (< 0.028) 06/09/19 09:54 Serum Total Protein 6.4 g/dL (6.0-8.3) 06/09/19 09:54 Albumin 4.1 g/dL (3.4-4.8) 06/09/19 09:54 Hospitalist H&P A/P - Problem (1) COPD exacerbation Code(s): J44.1 - CHRONIC OBSTRUCTIVE PULMONARY DISEASE W (ACUTE) EXACERBATION Status: Acute Assessment and Plan: Pt likely has COPD exacerbation vs an underlying PNA. Will get a CT chest to r/ o PNA. Cont steroids, nebs and antitussives. Cont O2 support. Monitor for symp improvement. (2) PNA (pneumonia) Code(s): J18.9 - PNEUMONIA, UNSPECIFIED ORGANISM Status: Acute Qualifiers: Pneumonia type: due to unspecified organism Laterality: unspecified laterality Lung location: unspecified part of lung Qualified Code(s): J18.9 - Pneumonia, unspecified organism Assessment and Plan: Pt possibly has PNA. Will get CT chest and sputum cx, cont abx, steroids and nebs. Monitor symps improvement. (3) HTN (hypertension), benign Code(s): I10 - ESSENTIAL (PRIMARY) HYPERTENSION Status: Acute Assessment and Plan: Controlled. Cont prior BP meds. (4) SLE (systemic lupus erythematosus) Code(s): M32.9 - SYSTEMIC LUPUS ERYTHEMATOSUS, UNSPECIFIED Status: Acute Assessment and Plan: Cont prior meds. (5) Hypothyroidism Code(s): E03.9 - HYPOTHYROIDISM, UNSPECIFIED Status: Chronic Assessment and Plan: Stable. Cont prior synthroid. (6) GERD (gastroesophageal reflux disease) Code(s): K21.9 - GASTRO-ESOPHAGEAL REFLUX DISEASE WITHOUT ESOPHAGITIS Status: Acute Assessment and Plan: Cont PPI. (7) Leucocytosis Code(s): D72.829 - ELEVATED WHITE BLOOD CELL COUNT, UNSPECIFIED Status: Acute Assessment and Plan: Likely due to prior steroid use. Cont abx. Monitor WBC. - Plan Plan: PPx: PPI and SCds. CODE status: Full. Dispo: Admit as inpatient.
[2019-06-09] MEDS ORDERED: Acetaminophen 325 MG TAB PO PRN (13:12)
[2019-06-09] MEDS ORDERED: Guaifenesin DM 100-10/5 ML UDCUP PO PRN (13:12)
--- NOTE | 2019-06-09 14:10 | CT ---
CT CHEST WITHOUT CONTRAST: HISTORY: Evaluate for pneumonia. Shortness of breath, worsening for the past few days. COMPARISON: 05/05/2019 FINDINGS: Mediastinum: Limited evaluation by the lack of IV contrast. No mass, lymphadenopathy or hematoma. Heart: Normal heart size. No significant pericardial fluid. Aorta: Atherosclerosis of a nonaneurysmal aorta. Upper abdomen: Grossly no solid organ abnormality. Trachea and central bronchi: Patent. Pleural spaces: No pleural effusion. Pneumothorax: None. Right lung: Emphysematous changes. No suspicious masses or consolidation. Calcified granuloma in the middle lobe. Patchy ground glass opacities. Stable linear opacities in the middle lobe. Left lung: Emphysematous changes. No suspicious masses or consolidation. Patchy ground glass opacitie s throughout the lung parenchyma. Additional linear opacities in the left lower lobe may represent areas of scar and/or atelectasis. Stable linear opacities in the lingula. IMPRESSION: Essentially stable opacification in the lung parenchyma. Nonspecific patchy ground glass opacities. S table linear opacities in the middle lobe, lingula and lower lobes. Findings favor scar or atelectasis. Transcribed Date/Time: 06/09/2019 2:20 PM
[2019-06-09] MEDS: cefTRIAXone\\ROCEPHIN 1 GM in Sodium Chloride 0.9% 100 ML IVPB SCH (15:13)
[2019-06-09] MEDS: methylPREDNISolone Sod Succ 40 MG VIAL IVP SCH ×2 (15:13→21:20)
[2019-06-09] MEDS: Benzonatate 100 MG CAP PO SCH ×2 (15:17→21:20)
[2019-06-09] MEDS: Azithromycin 500 MG in Sodium Chloride 0.9% 250 ML 250 ML IVPB SCH (16:41)
[2019-06-09] MEDS: Mometasone/Formoterol 120 PUFF INHALER INH SCH (18:23)
[2019-06-09] MEDS: Hydroxychloroquine Sulfate 200 MG TAB PO SCH (21:20)
[2019-06-09] MEDS: guaiFENesin ER 600 MG TAB PO SCH (21:20)
[2019-06-10] MEDS: methylPREDNISolone Sod Succ 40 MG VIAL IVP SCH ×3 (05:51→21:08)
[2019-06-10] MEDS: Levothyroxine Sodium 75 MCG TAB PO SCH (05:51)
[2019-06-10 06:42] LABS: #Lymphocytes 0.9 thou/uL (1.20-3.40); #Monocytes 0.5 thou/uL (0.11-0.59); #Neutrophils 10.8 thou/uL (1.40-6.50); %Eosinophils 0.1 % (0.0-10.0); %Lymphocytes 7.3 % (21.0-51.0); %Neutrophils 88.6 % (42.0-75.0); Hemoglobin 13.5 g/dL (12.0-16.0); Mean Corpuscular HGB CONC 31.6 g/dL (32.0-36.0); Mean Corpuscular Hemoglobin 29.2 pg (27.0-31.0); Mean Corpuscular Volume 92.7 fL (78.0-98.0); Mean Platelet Volume 6.6 fL (7.4-10.4); Platelet Count 265 thou/uL (130-400); RBC Distribution Width 14.2 % (11.5-14.5); Red Blood Cell (RBC) Count 4.63 mill/uL (4.20-5.40); White Blood Cell (WBC) Count 12.2 thou/uL (4.8-10.8)
[2019-06-10] MEDS: Mometasone/Formoterol 120 PUFF INHALER INH SCH ×2 (06:44→19:34)
[2019-06-10 07:01] LABS: Anion Gap 12 mmol/L (10-20); BUN (Urea Nitrogen) 26 mg/dL (9.8-20.1); Calc. Creatinine Clearance 73 mL/min (70-130); Calcium 9.2 mg/dL (7.8-10.44); Carbon Dioxide 27 mmol/L (23-31); Chloride 104 mmol/L (98-107); Estimated GFR-MDRD 73; Glucose 188 mg/dL (80-115); Potassium 4.4 mmol/L (3.5-5.1); Sodium 139 mmol/L (136-145)
[2019-06-10] MEDS: guaiFENesin ER 600 MG TAB PO SCH ×2 (08:52→21:08)
[2019-06-10] MEDS: Hydroxychloroquine Sulfate 200 MG TAB PO SCH ×2 (08:52→21:08)
[2019-06-10] MEDS: Saccharomyces boulardii 250 MG CAP PO SCH (08:53)
[2019-06-10] MEDS: Trospium 20 MG TAB PO SCH (08:53)
[2019-06-10] MEDS: Enoxaparin Sodium 40 MG/0.4 ML SYRINGE SC SCH (08:54)
[2019-06-10] MEDS: Benzonatate 100 MG CAP PO SCH ×3 (08:54→21:08)
--- NOTE | 2019-06-10 09:56 | PRG ---
DATE OF SERVICE: 06/10/2019 SUBJECTIVE: The patient is seen and examined at the bedside. She feels slightly better. She had bowel movement yesterday. Appetite is quite poor. OBJECTIVE: VITAL SIGNS: Blood pressure is 147/71, pulse is 96, temperature 97.7, respirations 20, and O2 saturation is 96% on O2. HEENT: Her head is atraumatic and normocephalic. Eyes are PERRLA. Sclerae are nonicteric. Oral mucosa is somewhat dry. NECK: Supple. LUNGS: Bilateral rales and wheezing present all over her both lungs. HEART: S1 and S2 distant. No S3, no S4. ABDOMEN: Soft, nontender, nondistended. EXTREMITIES: No clubbing, cyanosis, or edema. NEUROLOGICAL: She is alert and oriented x4. There are no any motor or sensory deficits. LABORATORY DATA: White count of 12.2, hemoglobin 13.5, hematocrit 42.9, platelet count is 265,000, normal electrolytes. Normal CO2, BUN of 26, creatinine 0.80, glucose 188, calcium 9.2. Microbiology, preliminary culture on her sputum is pending. Gram stain 0 to 5 epithelial cells in low power field, many wbc's, moderate gram-positive cocci in pairs and clusters. Two blood cultures are negative so far. CT of the chest showed essentially stable opacification in the lung parenchyma, nonspecific patchy ground-glass opacities. Stable linear opacities in the mid-lower lobe and lower lobes. Findings favored scar or atelectasis. IMPRESSION: 1. Acute exacerbation of chronic obstructive pulmonary disease. 2. Hypertension. 3. Systemic lupus erythematosus. 4. Hypothyroidism. 5. Gastroesophageal reflux disease. PLAN: Continue current regimen with IV steroids, IV antibiotic, which is Rocephin and azithromycin. Continue DuoNeb. Continue O2. Continue long-acting beta agonists. Job ID: [id number]
[2019-06-10] MEDS: cefTRIAXone\\ROCEPHIN 1 GM in Sodium Chloride 0.9% 100 ML IVPB SCH (13:27)
[2019-06-10] MEDS: Azithromycin 500 MG in Sodium Chloride 0.9% 250 ML 250 ML IVPB SCH (14:11)
[2019-06-10] MEDS ORDERED: FLU VACC QS2019-20(6MOS UP)/PF 60 MCG/0.5 ML SYRINGE IM ONE (14:45)
[2019-06-10 18:33] VITALS: BMI 24.2
[2019-06-10] MEDS: Atorvastatin Calcium 10 MG TAB PO SCH (21:08)
[2019-06-11] MEDS: methylPREDNISolone Sod Succ 40 MG VIAL IVP SCH ×3 (06:07→21:01)
[2019-06-11] MEDS: Levothyroxine Sodium 75 MCG TAB PO SCH (06:07)
[2019-06-11] MEDS: Mometasone/Formoterol 120 PUFF INHALER INH SCH ×2 (07:55→19:08)
--- NOTE | 2019-06-11 09:05 | PRG ---
DATE OF SERVICE: 06/11/2019 SUBJECTIVE: The patient is seen and examined at the bedside. She is feeling somewhat better. Her appetite is improved. She had bowel movements yesterday. Her respirations are easier this morning. OBJECTIVE: VITAL SIGNS: Blood pressure is 148/75, pulse is 84, temperature is 98.1, respirations 19, O2 saturation is 96% on 1.5 L by nasal cannula. HEENT: Her head is atraumatic and normocephalic. Eyes are PERRLA. Sclerae are nonicteric. Conjunctivae are pinkish. Oral mucosa is moist. NECK: Supple. LUNGS: Bilateral rales and wheezing, [id number]. HEART: S1 and S2 are normal. No S3. No S4. No any murmur. ABDOMEN: Soft, nontender, and nondistended. Bowel sounds are present. EXTREMITIES: No clubbing, cyanosis, or edema. NEUROLOGIC: She is alert and oriented x4. There are no any motor or sensory deficits. LABORATORY DATA: None today. IMPRESSION: 1. Chronic obstructive pulmonary disease exacerbation, slightly improved. 2. Hypertension. 3. Systemic lupus erythematosus. 4. Hypothyroidism, on replacement. 5. Gastroesophageal reflux disease. PLAN: Plan is to cut back on her IV steroids to Solu-Medrol 40 mg IV push every 12 hours. Continue IV antibiotics, Rocephin and azithromycin. DuoNeb q.4 hours scheduled. Continue O2 and continue long-acting beta agonist and inhaled steroids. Job ID: [id number]
[2019-06-11] MEDS: Trospium 20 MG TAB PO SCH (09:10)
[2019-06-11] MEDS: Saccharomyces boulardii 250 MG CAP PO SCH (09:10)
[2019-06-11] MEDS: guaiFENesin ER 600 MG TAB PO SCH ×2 (09:10→21:00)
[2019-06-11] MEDS: Benzonatate 100 MG CAP PO SCH ×3 (09:10→21:00)
[2019-06-11] MEDS: Enoxaparin Sodium 40 MG/0.4 ML SYRINGE SC SCH (09:10)
[2019-06-11] MEDS: Hydroxychloroquine Sulfate 200 MG TAB PO SCH ×2 (09:10→21:00)
[2019-06-11] MEDS: cefTRIAXone\\ROCEPHIN 1 GM in Sodium Chloride 0.9% 100 ML IVPB SCH (14:17)
[2019-06-11] MEDS: Azithromycin 500 MG in Sodium Chloride 0.9% 250 ML 250 ML IVPB SCH (14:20)
[2019-06-11] MEDS: Atorvastatin Calcium 10 MG TAB PO SCH (21:00)
[2019-06-12] MEDS: Levothyroxine Sodium 75 MCG TAB PO SCH (05:45)
[2019-06-12] MEDS: Mometasone/Formoterol 120 PUFF INHALER INH SCH ×2 (06:46→18:41)
[2019-06-12] MEDS: Enoxaparin Sodium 40 MG/0.4 ML SYRINGE SC SCH (08:42)
[2019-06-12] MEDS: Benzonatate 100 MG CAP PO SCH ×3 (08:42→20:33)
[2019-06-12] MEDS: Hydroxychloroquine Sulfate 200 MG TAB PO SCH ×2 (08:43→20:34)
[2019-06-12] MEDS: guaiFENesin ER 600 MG TAB PO SCH ×2 (08:43→20:34)
[2019-06-12] MEDS: methylPREDNISolone Sod Succ 40 MG VIAL IVP SCH (08:43)
[2019-06-12] MEDS: Saccharomyces boulardii 250 MG CAP PO SCH (08:43)
[2019-06-12] MEDS: Trospium 20 MG TAB PO SCH (08:43)
--- NOTE | 2019-06-12 10:35 | CON ---
DATE OF CONSULTATION: HISTORY OF PRESENT ILLNESS: This is a 64-year-old female with end-stage COPD, who presented to the ER several days ago with increasing shortness of breath, cough, unresponsive to usual home medication. She has been in the hospital now for several days. She consulted today regarding her pulmonary status. She states she is feeling better, but she is still wheezing and short of breath. Extensive previous past medical history is well outlined. Past medical history of COPD, hypothyroidism, reflux, history of lupus apparently. ALLERGIES: CODEINE, SULFA. HOME MEDICATIONS: 1. Verapamil 200. 2. Pravastatin. 3. Prednisone. 4. Synthroid. PAST SURGICAL HISTORY: Otherwise included hysterectomy tonsillectomy. REVIEW OF SYSTEMS: Otherwise, 10-point negative. PHYSICAL EXAMINATION: VITAL SIGNS: Temperature 98, pulse 105, sats93% 0n oxygen 2 l, blood pressure 151/78. CHEST: Decreased breath sounds. Prolonged expiration. Minimal wheezing. CARDIAC: Normal S1, S2. No gallops. ABDOMEN: No masses. NEUROLOGIC: Unremarkable. LABORATORY DATA: Lytes are normal. White count is unremarkable. X-ray is clear. CT of chest shows no masses or infiltrates. IMPRESSION: 1. Chronic obstructive pulmonary disease exacerbation. 2. Bronchitis. PLAN: Continue present treatment. Switch her over to oral antibiotics and steroids. Hopefully, if she is stable, she will be discharged home in the next several days. We will follow. Job ID: [id number] MTDD
[2019-06-12] MEDS ORDERED: Doxycycline 100 MG CAP PO SCH (10:45)
--- NOTE | 2019-06-12 12:56 | PDOC.HOSPP ---
- Subjective Encounter Date: 06/12/19 Encounter Time: 07:45 Subjective: breathing better no chest pain or palp - Objective Vital Signs & Weight: Vital Signs (12 hours) Temp Pulse Resp BP Pulse Ox 06/12/19 10:20 104 H 19 06/12/19 08:00 92 L 06/12/19 07:51 98.2 F 105 H 20 151/78 H 92 L 06/12/19 06:44 96 19 06/12/19 03:16 94 L Weight Weight 141 lb I&O: 06/11/19 06/12/19 06/13/19 06:59 06:59 06:59 Intake Total 2550 1830 720 Balance 2550 1830 720 Result Diagrams: 06/10/19 06:26 06/10/19 06:26 Hospitalist ROS - Medication Medications: Active Medications Generic Name Dose Route Start Last Admin Trade Name Freq PRN Reason Stop Dose Admin Albuterol/Ipratropium 3 ml 06/11/19 10:30 06/12/19 10:20 Duoneb NEB 3 ml [id number] MAKENNA Administration Atorvastatin Calcium 10 mg 06/10/19 21:00 06/11/19 21:00 Lipitor PO 10 mg HS MAKENNA Administration Benzonatate 100 mg 06/09/19 15:00 06/12/19 08:42 Tessalon PO 100 mg TID MAKENNA Administration Enoxaparin Sodium 40 mg 06/10/19 09:00 06/12/19 08:42 Lovenox SC 40 mg 0900 MAKENNA Administration Guaifenesin 600 mg 06/09/19 21:00 06/12/19 08:43 Mucinex PO 600 mg Q12HR MAKENNA Administration Guaifenesin/Dextromethorphan 15 ml 06/09/19 13:12 06/10/19 05:53 Robitussin Dm PO 15 ml Q4H PRN Administration Cough Hydroxychloroquine Sulfate 200 mg 06/09/19 21:00 06/12/19 08:43 Plaquenil PO 200 mg BID MAKENNA Administration Levothyroxine Sodium 75 mcg 06/10/19 06:00 06/12/19 05:45 Synthroid PO 75 mcg 0600 MAKENNA Administration Mometasone Furoate/Formoterol Fumar 2 puff 06/09/19 18:30 06/12/19 06:46 Dulera 200 Mcg/5 Mcg Inhaler INH 2 puff BID-RT MAKENNA Administration Pantoprazole Sodium 40 mg 06/10/19 09:00 06/12/19 08:43 Protonix PO 40 mg DAILY MAKENNA Administration Saccharomyces Boulardii 250 mg 06/10/19 09:00 06/12/19 08:43 Florastor PO 250 mg DAILY MAKENNA Administration Trospium 20 mg 06/10/19 09:00 06/12/19 08:43 Trospium PO 20 mg DAILY MAKENNA Administration - Exam General Appearance: awake alert Eye: PERRL, anicteric sclera ENT: no oropharyngeal lesions, moist mucosa Neck: supple, no JVD Heart: RRR, no murmur Respiratory: no wheezes, no rales, rhonchi Gastrointestinal: soft, non-tender, non-distended, normal bowel sounds Extremities: no cyanosis, no edema Neurological: cranial nerve grossly intact, no focal deficits Psychiatric: normal affect, A&O x 3 Hosp A/P (1) COPD exacerbation Code(s): J44.1 - CHRONIC OBSTRUCTIVE PULMONARY DISEASE W (ACUTE) EXACERBATION Status: Acute (2) GERD (gastroesophageal reflux disease) Code(s): K21.9 - GASTRO-ESOPHAGEAL REFLUX DISEASE WITHOUT ESOPHAGITIS Status: Chronic Qualifiers: Esophagitis presence: esophagitis presence not specified Qualified Code(s) : K21.9 - Gastro-esophageal reflux disease without esophagitis (3) HTN (hypertension), benign Code(s): I10 - ESSENTIAL (PRIMARY) HYPERTENSION Status: Chronic (4) SLE (systemic lupus erythematosus) Code(s): M32.9 - SYSTEMIC LUPUS ERYTHEMATOSUS, UNSPECIFIED Status: Chronic Qualifiers: Systemic lupus erythematosus type: unspecified (5) Hypothyroidism Code(s): E03.9 - HYPOTHYROIDISM, UNSPECIFIED Status: Chronic Qualifiers: Hypothyroidism type: unspecified Qualified Code(s): E03.9 - Hypothyroidism , unspecified - Plan is on doxy, steroids, nebs continue plaquenil, synthroid, lipitor hemostable to amb in hallway as tolerated is on home O2
[2019-06-12] MEDS: predniSONE 20 MG TAB PO SCH (15:51)
[2019-06-12] MEDS: Atorvastatin Calcium 10 MG TAB PO SCH (20:33)
[2019-06-12] MEDS: Doxycycline 100 MG CAP PO SCH (20:33)
[2019-06-12] MEDS: Lorazepam 0.5 MG TAB PO PRN (20:54)
[2019-06-13] MEDS: Levothyroxine Sodium 75 MCG TAB PO SCH (05:43)
[2019-06-13] MEDS: Mometasone/Formoterol 120 PUFF INHALER INH SCH ×2 (06:11→19:46)
[2019-06-13] MEDS: Lorazepam 0.5 MG TAB PO PRN ×2 (08:51→22:33)
[2019-06-13] MEDS: guaiFENesin ER 600 MG TAB PO SCH ×2 (08:51→21:12)
[2019-06-13] MEDS: Hydroxychloroquine Sulfate 200 MG TAB PO SCH ×2 (08:51→21:12)
[2019-06-13] MEDS: Benzonatate 100 MG CAP PO SCH ×3 (08:51→21:12)
[2019-06-13] MEDS: Enoxaparin Sodium 40 MG/0.4 ML SYRINGE SC SCH (08:51)
[2019-06-13] MEDS: Saccharomyces boulardii 250 MG CAP PO SCH (08:51)
[2019-06-13] MEDS: predniSONE 20 MG TAB PO SCH ×2 (08:51→16:14)
[2019-06-13] MEDS: Trospium 20 MG TAB PO SCH (08:51)
[2019-06-13] MEDS: Doxycycline 100 MG CAP PO SCH ×2 (08:54→21:12)
--- NOTE | 2019-06-13 11:04 | PRG ---
DATE OF SERVICE: 06/13/2019 SUBJECTIVE: This morning, she is still coughing. She is still short of breath. OBJECTIVE: VITAL SIGNS: Temperature 98, pulse 104, respiratory rate 18, saturations 97 on 2 L, blood pressure 148/81. CHEST: Diffuse wheezing. CARDIAC: Normal S1 and S2. No gallops. ABDOMEN: No mass. ASSESSMENT: 1. Chronic obstructive pulmonary disease exacerbation. 2. Bronchitis. PLAN: Continue present treatment, PT, supportive care. Hopefully, she will be discharged home in the next day or 2. Job ID: [id number]
--- NOTE | 2019-06-13 16:20 | PDOC.HOSPP ---
- Subjective Encounter Date: 06/13/19 Encounter Time: 09:20 Subjective: Pt seen for followup re: COPD exacerbation. feels better today. - Objective Vital Signs & Weight: Vital Signs (12 hours) Temp Pulse Resp BP Pulse Ox 06/13/19 14:09 107 H 20 06/13/19 10:19 100 20 06/13/19 08:00 97 06/13/19 07:18 98.1 F 104 H 18 145/81 H 97 06/13/19 06:11 85 12 06/13/19 06:02 99 06/13/19 05:59 85 12 Weight Weight 141 lb I&O: 06/12/19 06/13/19 06/14/19 06:59 06:59 06:59 Intake Total 1830 5 Balance 1830 2114 Result Diagrams: 06/10/19 06:26 06/10/19 06:26 Additional Labs: labs and MARs reviewed by me Hospitalist ROS - Review of Systems Respiratory: reports: cough, dry, SOB with excertion, wheezing. denies: shortness of breath, hemoptysis, pleuritic pain, sputum Cardiovascular: denies: chest pain, palpitations, orthopnea, paroxysmal noc. dyspnea, edema, light headedness - Medication Medications: Active Medications Generic Name Dose Route Start Last Admin Trade Name Freq PRN Reason Stop Dose Admin Albuterol/Ipratropium 3 ml 06/11/19 10:30 06/13/19 14:09 Duoneb NEB 3 ml [id number] MAKENNA Administration Atorvastatin Calcium 10 mg 06/10/19 21:00 06/12/19 20:33 Lipitor PO 10 mg HS MAKENNA Administration Benzonatate 100 mg 06/09/19 15:00 06/13/19 14:41 Tessalon PO 100 mg TID MAKENNA Administration Doxycycline Hyclate 100 mg 06/12/19 21:00 06/13/19 08:54 Vibramycin PO 100 mg BID MAKENNA Administration Enoxaparin Sodium 40 mg 06/10/19 09:00 06/13/19 08:51 Lovenox SC 40 mg 0900 MAKENNA Administration Guaifenesin 600 mg 06/09/19 21:00 06/13/19 08:51 Mucinex PO 600 mg Q12HR MAKENNA Administration Guaifenesin/Dextromethorphan 15 ml 06/09/19 13:12 06/10/19 05:53 Robitussin Dm PO 15 ml Q4H PRN Administration Cough Hydroxychloroquine Sulfate 200 mg 06/09/19 21:00 06/13/19 08:51 Plaquenil PO 200 mg BID MAKENNA Administration Levothyroxine Sodium 75 mcg 06/10/19 06:00 06/13/19 05:43 Synthroid PO 75 mcg 0600 MAKENNA Administration Mometasone Furoate/Formoterol Fumar 2 puff 06/09/19 18:30 06/13/19 06:11 Dulera 200 Mcg/5 Mcg Inhaler INH 2 puff BID-RT MAKENNA Administration Pantoprazole Sodium 40 mg 06/10/19 09:00 06/13/19 08:51 Protonix PO 40 mg DAILY MAKENNA Administration Prednisone 20 mg 06/12/19 17:00 06/13/19 16:14 Prednisone PO 20 mg BID-WM MAKENNA Administration Saccharomyces Boulardii 250 mg 06/10/19 09:00 06/13/19 08:51 Florastor PO 250 mg DAILY MAKENNA Administration Trospium 20 mg 06/10/19 09:00 06/13/19 08:51 Trospium PO 20 mg DAILY MAKENNA Administration - Exam General Appearance: NAD, awake alert Eye: anicteric sclera ENT: moist mucosa Neck: supple, symmetric Heart: RRR, no gallops Respiratory: wheezes Gastrointestinal: soft, non-tender Extremities: no cyanosis Psychiatric: normal affect, normal behavior Hosp A/P (1) COPD exacerbation Code(s): J44.1 - CHRONIC OBSTRUCTIVE PULMONARY DISEASE W (ACUTE) EXACERBATION Status: Acute (2) GERD (gastroesophageal reflux disease) Code(s): K21.9 - GASTRO-ESOPHAGEAL REFLUX DISEASE WITHOUT ESOPHAGITIS Status: Chronic Qualifiers: Esophagitis presence: esophagitis presence not specified Qualified Code(s) : K21.9 - Gastro-esophageal reflux disease without esophagitis (3) HTN (hypertension), benign Code(s): I10 - ESSENTIAL (PRIMARY) HYPERTENSION Status: Chronic (4) Hypothyroidism Code(s): E03.9 - HYPOTHYROIDISM, UNSPECIFIED Status: Chronic Qualifiers: Hypothyroidism type: unspecified Qualified Code(s): E03.9 - Hypothyroidism , unspecified - Plan PT/OT, out of bed/ambulate Continue oxygen, steroids, bronchodilators and antibiotics. Continue synthroid. Monitor vital signs, titrate antihypertensives as needed. Mobilize pt.
[2019-06-13] MEDS: Atorvastatin Calcium 10 MG TAB PO SCH (21:12)
[2019-06-14] MEDS: Levothyroxine Sodium 75 MCG TAB PO SCH (05:18)
[2019-06-14] MEDS: Trospium 20 MG TAB PO SCH (08:09)
[2019-06-14] MEDS: Saccharomyces boulardii 250 MG CAP PO SCH (08:09)
[2019-06-14] MEDS: guaiFENesin ER 600 MG TAB PO SCH ×2 (08:09→20:32)
[2019-06-14] MEDS: Lorazepam 0.5 MG TAB PO PRN (08:09)
[2019-06-14] MEDS: predniSONE 20 MG TAB PO SCH ×2 (08:09→14:27)
[2019-06-14] MEDS: Hydroxychloroquine Sulfate 200 MG TAB PO SCH ×2 (08:09→20:32)
[2019-06-14] MEDS: Enoxaparin Sodium 40 MG/0.4 ML SYRINGE SC SCH (08:09)
[2019-06-14] MEDS: Benzonatate 100 MG CAP PO SCH ×3 (08:09→20:32)
[2019-06-14] MEDS: Doxycycline 100 MG CAP PO SCH ×2 (08:09→20:32)
[2019-06-14] MEDS: Mometasone/Formoterol 120 PUFF INHALER INH SCH ×2 (08:30→18:49)
--- NOTE | 2019-06-14 12:22 | PRG ---
DATE OF SERVICE: 06/14/2019 SUBJECTIVE: This morning, she is better, less short of breath, and less cough. OBJECTIVE: VITAL SIGNS: Saturations are 94% on 2 L, temperature 98, pulse 106, and blood pressure 137/85. CHEST: Decreased breath sounds without any wheezing. CARDIAC: Normal S1 and S2. No gallops. ABDOMEN: No masses. Abdomen is soft. IMPRESSION AND PLAN: Chronic obstructive pulmonary disease exacerbation and bronchitis, improved. Disposition, home in the next 24 to 48 hours. Job ID: [id number]
--- NOTE | 2019-06-14 14:00 | PDOC.HOSPP ---
- Subjective Encounter Date: 06/14/19 Encounter Time: 10:00 Subjective: Pt seen for followup re: COPD exacerbation. Feels better. - Objective Vital Signs & Weight: Vital Signs (12 hours) Temp Pulse Resp BP Pulse Ox 06/14/19 11:41 112 H 18 06/14/19 08:30 106 H 20 06/14/19 08:22 106 H 20 94 L 06/14/19 07:45 98.3 F 106 H 20 137/85 94 L 06/14/19 07:44 96 06/14/19 02:25 78 16 95 Weight Weight 141 lb I&O: 06/13/19 06/14/19 06/15/19 06:59 06:59 06:59 Intake Total 2115 960 Balance 2115 960 Result Diagrams: 06/10/19 06:26 06/10/19 06:26 Additional Labs: Labs and MARs reviewed by pa Hospitalist ROS - Review of Systems Constitutional: denies: fever, chills, sweats, weakness, malaise Respiratory: reports: cough, dry, SOB with excertion. denies: shortness of breath, hemoptysis, pleuritic pain, sputum, wheezing Skin: denies: rash, lesions, yon, bruising - Medication Medications: Active Medications Generic Name Dose Route Start Last Admin Trade Name Freq PRN Reason Stop Dose Admin Albuterol/Ipratropium 3 ml 06/11/19 10:30 06/14/19 11:41 Duoneb NEB 3 ml [id number] MAKENNA Administration Atorvastatin Calcium 10 mg 06/10/19 21:00 06/13/19 21:12 Lipitor PO 10 mg HS MAKENNA Administration Benzonatate 100 mg 06/09/19 15:00 06/14/19 08:09 Tessalon PO 100 mg TID MAKENNA Administration Doxycycline Hyclate 100 mg 06/12/19 21:00 06/14/19 08:09 Vibramycin PO 100 mg BID MAKENNA Administration Enoxaparin Sodium 40 mg 06/10/19 09:00 06/14/19 08:09 Lovenox SC 40 mg 0900 MAKENNA Administration Guaifenesin 600 mg 06/09/19 21:00 06/14/19 08:09 Mucinex PO 600 mg Q12HR MAKENNA Administration Guaifenesin/Dextromethorphan 15 ml 06/09/19 13:12 06/10/19 05:53 Robitussin Dm PO 15 ml Q4H PRN Administration Cough Hydroxychloroquine Sulfate 200 mg 06/09/19 21:00 06/14/19 08:09 Plaquenil PO 200 mg BID MAKENNA Administration Levothyroxine Sodium 75 mcg 06/10/19 06:00 06/14/19 05:18 Synthroid PO 75 mcg 0600 MAKENNA Administration Mometasone Furoate/Formoterol Fumar 2 puff 06/09/19 18:30 06/14/19 08:30 Dulera 200 Mcg/5 Mcg Inhaler INH 2 puff BID-RT MAKENNA Administration Pantoprazole Sodium 40 mg 06/10/19 09:00 06/14/19 08:09 Protonix PO 40 mg DAILY MAKENNA Administration Prednisone 20 mg 06/12/19 17:00 06/14/19 08:09 Prednisone PO 20 mg BID-WM MAKENNA Administration Saccharomyces Boulardii 250 mg 06/10/19 09:00 06/14/19 08:09 Florastor PO 250 mg DAILY MAKENNA Administration Trospium 20 mg 06/10/19 09:00 06/14/19 08:09 Trospium PO 20 mg DAILY MAKENNA Administration - Exam General Appearance: NAD ENT: normocephalic atraumatic, moist mucosa Heart: RRR Respiratory: CTAB Gastrointestinal: soft, non-tender Musculoskeletal: no muscle wasting Psychiatric: normal behavior, A&O x 3 Hosp A/P (1) COPD exacerbation Code(s): J44.1 - CHRONIC OBSTRUCTIVE PULMONARY DISEASE W (ACUTE) EXACERBATION Status: Acute (2) GERD (gastroesophageal reflux disease) Code(s): K21.9 - GASTRO-ESOPHAGEAL REFLUX DISEASE WITHOUT ESOPHAGITIS Status: Chronic Qualifiers: Esophagitis presence: esophagitis presence not specified Qualified Code(s) : K21.9 - Gastro-esophageal reflux disease without esophagitis (3) HTN (hypertension), benign Code(s): I10 - ESSENTIAL (PRIMARY) HYPERTENSION Status: Chronic (4) Hypothyroidism Code(s): E03.9 - HYPOTHYROIDISM, UNSPECIFIED Status: Chronic Qualifiers: Hypothyroidism type: unspecified Qualified Code(s): E03.9 - Hypothyroidism , unspecified - Plan continue antibiotics, respiratory therapy, out of bed/ambulate Continue oxygen, oral steroids, bronchodilators and oral antibiotics. Pt is on synthroid. Mobilize pt.
[2019-06-14] MEDS: Atorvastatin Calcium 10 MG TAB PO SCH (20:32)
[2019-06-14] MEDS ORDERED: Lorazepam 0.5 MG TAB PO SCH (21:00)
[2019-06-15] MEDS: Levothyroxine Sodium 75 MCG TAB PO SCH (05:38)
[2019-06-15] MEDS: Mometasone/Formoterol 120 PUFF INHALER INH SCH (06:54)
[2019-06-15 07:51] VITALS: BP 151/86; TEMP 97.8
[2019-06-15] MEDS: Doxycycline 100 MG CAP PO SCH (08:18)
[2019-06-15] MEDS: Benzonatate 100 MG CAP PO SCH ×2 (08:18→15:34)
[2019-06-15] MEDS: Saccharomyces boulardii 250 MG CAP PO SCH (08:18)
[2019-06-15] MEDS: Trospium 20 MG TAB PO SCH (08:18)
[2019-06-15] MEDS: Hydroxychloroquine Sulfate 200 MG TAB PO SCH (08:18)
[2019-06-15] MEDS: Enoxaparin Sodium 40 MG/0.4 ML SYRINGE SC SCH (08:19)
[2019-06-15] MEDS: predniSONE 20 MG TAB PO SCH ×2 (08:19→16:24)
[2019-06-15] MEDS ORDERED: Mag-Al 1200 mg/1200 mg/30 ML UDCUP PO PRN (09:38)
[2019-06-15] MEDS ORDERED: Mag-Al 1200 mg/1200 mg/30 ML UDCUP PO SCH (09:45)
[2019-06-15] MEDS: guaiFENesin ER 600 MG TAB PO SCH (09:56)
[2019-06-15] MEDS: Lorazepam 0.5 MG TAB PO PRN ×2 (09:56→16:24)
--- NOTE | 2019-06-15 09:57 | PRG ---
DATE OF SERVICE: 06/15/2019 SUBJECTIVE: This morning, she is better. She says she is weak. She is coughing. OBJECTIVE: VITAL SIGNS: Temperature 97, pulse 93, respiratory rate 20, sats 100% on 2 L, and blood pressure 158/86. CHEST: No wheezing or crackles. CARDIAC: Normal S1 and S2. No gallops. ABDOMEN: No masses. ASSESSMENT AND PLAN: 1. Chronic obstructive pulmonary disease exacerbation and bronchitis, improved. 2. Baseline rheumatoid arthritis. Home any time. Follow up with primary care physician. Job ID: [id number]
--- NOTE | 2019-06-15 13:48 | PDOC.HOSPP ---
- Subjective Encounter Date: 06/15/19 Encounter Time: 13:47 Subjective: Pt seen for followup re: COPD exacerbation. Feels better. - Objective Vital Signs & Weight: Vital Signs (12 hours) Temp Pulse Resp BP Pulse Ox 06/15/19 08:00 100 06/15/19 07:50 97.8 F 93 20 151/86 H 100 06/15/19 06:52 93 14 97 06/15/19 02:35 101 H 16 97 Weight Weight 141 lb I&O: 06/14/19 06/15/19 06/16/19 06:59 06:59 06:59 Intake Total 960 1425 Balance 960 1425 Result Diagrams: 06/10/19 06:26 06/10/19 06:26 Additional Labs: Labs and MARs reviewed by me. Hospitalist ROS - Review of Systems Respiratory: denies: cough, shortness of breath, SOB with excertion, pleuritic pain, wheezing Cardiovascular: denies: chest pain, palpitations, orthopnea, paroxysmal noc. dyspnea, edema, light headedness - Medication Medications: Active Medications Generic Name Dose Route Start Last Admin Trade Name Freq PRN Reason Stop Dose Admin Albuterol/Ipratropium 3 ml 06/11/19 10:30 06/15/19 10:11 Duoneb NEB 3 ml [id number] MAKENNA Administration Atorvastatin Calcium 10 mg 06/10/19 21:00 06/14/19 20:32 Lipitor PO 10 mg HS MAKENNA Administration Benzonatate 100 mg 06/09/19 15:00 06/15/19 08:18 Tessalon PO 100 mg TID MAKENNA Administration Doxycycline Hyclate 100 mg 06/12/19 21:00 06/15/19 08:18 Vibramycin PO 100 mg BID MAKENNA Administration Enoxaparin Sodium 40 mg 06/10/19 09:00 06/15/19 08:19 Lovenox SC 40 mg 0900 MAKENNA Administration Guaifenesin 600 mg 06/09/19 21:00 06/15/19 09:56 Mucinex PO 600 mg Q12HR MAKENNA Administration Guaifenesin/Dextromethorphan 15 ml 06/09/19 13:12 06/10/19 05:53 Robitussin Dm PO 15 ml Q4H PRN Administration Cough Hydroxychloroquine Sulfate 200 mg 06/09/19 21:00 06/15/19 08:18 Plaquenil PO 200 mg BID MAKENNA Administration Levothyroxine Sodium 75 mcg 06/10/19 06:00 06/15/19 05:38 Synthroid PO 75 mcg 0600 MAKENNA Administration Lorazepam 0.25 mg 06/15/19 09:37 06/15/19 09:56 Ativan PO 0.25 mg TID PRN Administration Anxiety Mometasone Furoate/Formoterol Fumar 2 puff 06/09/19 18:30 06/15/19 06:54 Dulera 200 Mcg/5 Mcg Inhaler INH 2 puff BID-RT MAKENNA Administration Pantoprazole Sodium 40 mg 06/10/19 09:00 06/15/19 08:19 Protonix PO 40 mg DAILY MAKENNA Administration Prednisone 20 mg 06/12/19 17:00 06/15/19 08:19 Prednisone PO 20 mg BID-WM MAKENNA Administration Saccharomyces Boulardii 250 mg 06/10/19 09:00 06/15/19 08:18 Florastor PO 250 mg DAILY MAKENNA Administration Trospium 20 mg 06/10/19 09:00 06/15/19 08:18 Trospium PO 20 mg DAILY MAKENNA Administration - Exam General Appearance: NAD Eye: anicteric sclera ENT: no oropharyngeal lesions Neck: supple Heart: RRR Respiratory: CTAB Gastrointestinal: soft, non-tender Psychiatric: normal affect, normal behavior Hosp A/P (1) COPD exacerbation Code(s): J44.1 - CHRONIC OBSTRUCTIVE PULMONARY DISEASE W (ACUTE) EXACERBATION Status: Acute (2) GERD (gastroesophageal reflux disease) Code(s): K21.9 - GASTRO-ESOPHAGEAL REFLUX DISEASE WITHOUT ESOPHAGITIS Status: Chronic Qualifiers: Esophagitis presence: esophagitis presence not specified Qualified Code(s) : K21.9 - Gastro-esophageal reflux disease without esophagitis (3) HTN (hypertension), benign Code(s): I10 - ESSENTIAL (PRIMARY) HYPERTENSION Status: Chronic (4) Hypothyroidism Code(s): E03.9 - HYPOTHYROIDISM, UNSPECIFIED Status: Chronic Qualifiers: Hypothyroidism type: unspecified Qualified Code(s): E03.9 - Hypothyroidism , unspecified - Plan Improved. Likely home today. No evidence of pneumonia during this admission.
--- NOTE | 2019-06-16 06:19 | DIS ---
DATE OF ADMISSION: 06/09/2019 DATE OF DISCHARGE: 06/15/2019 PRIMARY CARE PROVIDER: Dr. Mart Velasquez. DISCHARGE DIAGNOSES: 1. Chronic obstructive pulmonary disease exacerbation. 2. Bronchitis. CONDITION OF PATIENT ON THE DAY OF DISCHARGE: I assessed Ms. Lima on the day of discharge. Please refer to my daily hospitalist progress note for details regarding this [id number] encounter. CONSULTATIONS DURING THIS HOSPITALIZATION: Pulmonology, Dr. Grimes. DISCHARGE MEDICATIONS: 1. Budesonide/formoterol 160/4.5, two puffs 2 times a day. 2. Plaquenil 200 mg 2 times a day. 3. Synthroid 75 mcg daily. 4. Pravastatin 40 mg at bedtime. 5. VESIcare 5 mg daily. 6. Doxycycline 100 mg 2 times a day for 4 days. 7. Prednisone taper. 8. DuoNebs four times a day as needed. 9. Ativan 0.25 mg 3 times a day as needed. HOSPITAL COURSE: Ms. Lima is a pleasant 64-year-old lady, who was admitted to [facility] on June 09, 2019, for COPD exacerbation. There was also initial concern regarding pneumonia. However, chest CT did not show any evidence of pneumonia. Chest CT showed stable opacification in the lung parenchyma, nonspecific patchy ground-glass opacities, stable linear opacities in the middle lobe, lingula, and lower lobes. Findings favor atelectasis. The patient was seen by Pulmonology Service. She improved with oxygen, steroids , bronchodilators, and antibiotics. She also received Ativan for anxiety. She is being discharged home in a stable condition. I am giving her a prescription for 15 doses of Ativan 0.25 mg. Arrangements are also being made for nebulizer at home. Many thanks for allowing me to participate in your patient's care. Please feel free to contact me with any questions or concerns. POST ACUTE CARE FOLLOWUP: With primary care provider in 3 days' time and with Dr. Grimes. DIET: Heart healthy diet. ACTIVITY: As tolerated. DISCHARGE DESTINATION: Home. TOTAL AMOUNT OF TIME SPENT COORDINATING THIS DISCHARGE: 32 minutes. Job ID: [id number] MTDD
--- NOTE | 2019-06-16 12:57 | PQF ---
CLINICAL DOCUMENTATION IMPROVEMENT CLARIFICATION FORM: ICD-10 Updated PLEASE DO AN ADDENDUM TO THE PROGRESS NOTE WITH ANY DOCUMENTATION UPDATES OR ADDITIONS AND CARRY THROUGH TO DC SUMMARY. THANK YOU. DATE: 06/16/19 ATTN: DR. GODOY Please exercise your independent, professional judgment in responding to the clarification form. Clinical indicators are provided on the bottom of this form for your review Please check appropriate box(s): [ ] Acute Respiratory Failure: [ ] with Hypoxia[ ] with Hypercapnia [ ] Acute On Chronic Respiratory Failure: [ ] with Hypoxia [ ] with Hypercapnia [ ] Acute Respiratory Failure due to: (etiology) [ ] Chronic Respiratory Failure only [ ] with Hypoxia [ ] with Hypercapnia [ X ] Other diagnosis ___Acute on chronic respiratory failure, no hypoxia or hypercapnia [ ] Unable to determine In addition, please specify: Present on Admission (POA): [ x ] Yes [ ] No [ ] Unable to determine For continuity of documentation, please document condition throughout progress notes and discharge summary. Thank You. 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 shock, infection, surgery, trauma) Bilateral opacities in CXR/Chest CT not due to CHF or fluid (This form is maintained as a part of the permanent medical record) 2014 [employer]. All Rights Reserved [email or web address] Office: [phone] [facility]
== END 2019-06-15 17:20 | disposition home or self-care (01) | DRG 191 ==
LOC: ERS 08:25 → OBSVTOIN 11:51 → ERHOLD 11:51 → T4-B 14:07
PROVIDERS: ADMIT Hospitalist; ATTEND Hospitalist
DX: J44.1 Chronic obstructive pulmonary disease with (acute) exacerbation (principal); J98.11 Atelectasis; K21.9 Gastro-esophageal reflux disease without esophagitis; I10 Essential (primary) hypertension; M32.9 Systemic lupus erythematosus, unspecified; E03.9 Hypothyroidism, unspecified; D72.829 Elevated white blood cell count, unspecified; T38.0X5A Adverse effect of glucocorticoids and synthetic analogues, initial encounter; M06.9 Rheumatoid arthritis, unspecified; Z88.2 Allergy status to sulfonamides; Z91.041 Radiographic dye allergy status
CPT/HCPCS: 36415; 71045; 71250; 80048; 80053; 82805; 83735; 84484; 85025; 87040; 87070; 87205; 93005; 94640; 94644; 96374; J0456; J0696; J1650; J2920; J3475; J3490; J7050; J7512; J7611; J7620

== ENCOUNTER 2019-06-24 23:29 | Emergency (ER) | payer MEDICARE, OTHER ==
[2019-06-24] MEDS ORDERED: Albuterol Sulfate 2.5 mg/0.5 ml Neb ONE ×2 (23:49→23:51)
[2019-06-24] MEDS ORDERED: Albuterol Sulfate 2.5 mg/3 ml Neb ONE (23:50)
[2019-06-25 00:31] LABS: #Eosinphils 0.1 thou/uL (0.0-0.7); #Lymphocytes 1.5 thou/uL (1.20-3.40); #Monocytes 0.9 thou/uL (0.11-0.59); #Neutrophils 6.9 thou/uL (1.40-6.50); %Basophils 0.4 % (0.0-1.0); %Eosinophils 0.6 % (0.0-10.0); %Lymphocytes 15.9 % (21.0-51.0); %Monocytes 9.8 % (0.0-10.0); %Neutrophils 73.4 % (42.0-75.0); Hemoglobin 13.6 g/dL (12.0-16.0); Mean Corpuscular HGB CONC 32.9 g/dL (32.0-36.0); Mean Corpuscular Hemoglobin 30.1 pg (27.0-31.0); Mean Corpuscular Volume 91.6 fL (78.0-98.0); Mean Platelet Volume 6.5 fL (7.4-10.4); Platelet Count 187 thou/uL (130-400); RBC Distribution Width 14.4 % (11.5-14.5); Red Blood Cell (RBC) Count 4.52 mill/uL (4.20-5.40); White Blood Cell (WBC) Count 9.4 thou/uL (4.8-10.8)
[2019-06-25 00:48] LABS: ALT (SGPT) 30 U/L (8-55); AST (SGOT) 15 U/L (5-34); Albumin 4.1 g/dL (3.4-4.8); Alkaline Phosphatase 62 U/L (40-110); Anion Gap 14 mmol/L (10-20); BUN (Urea Nitrogen) 21 mg/dL (9.8-20.1); Calc. Creatinine Clearance 0 mL/min (70-130); Calcium 9.4 mg/dL (7.8-10.44); Carbon Dioxide 33 mmol/L (23-31); Chloride 99 mmol/L (98-107); Estimated GFR-MDRD 76; Globulin 2.3 g/dL (2.4-3.5); Glucose 103 mg/dL (80-115); Potassium 4.5 mmol/L (3.5-5.1); Protein, Total 6.4 g/dL (6.0-8.3); Sodium 141 mmol/L (136-145)
[2019-06-25] MEDS ORDERED: Albuterol Sulfate 2.5 mg/3 ml Neb ONE (01:48)
--- NOTE | 2019-06-25 07:58 | RAD ---
PORTABLE CHEST: HISTORY: Shortness of breath. FINDINGS: Lung gaitan are clear. Heart and mediastinum appear normal. Vasculature normal. IMPRESSION: No acute finding. POS: [facility]
== END 2019-06-25 03:13 | disposition home or self-care (01) ==
LOC: ERS 23:29
DX: J44.1 Chronic obstructive pulmonary disease with (acute) exacerbation (principal); Z79.899 Other long term (current) drug therapy
CPT/HCPCS: 36415; 71045; 80053; 84484; 85025; 94640; J7611

== ENCOUNTER 2019-07-14 04:13 | Emergency (ER) | payer MEDICARE, OTHER ==
[2019-07-14] MEDS ORDERED: Ketorolac Tromethamine 30 MG/ML VIAL ONE (04:23)
[2019-07-14 04:56] LABS: #Eosinphils 0.1 thou/uL (0.0-0.7); #Monocytes 0.9 thou/uL (0.11-0.59); #Neutrophils 4.2 thou/uL (1.40-6.50); %Basophils 0.4 % (0.0-1.0); %Eosinophils 0.7 % (0.0-10.0); %Lymphocytes 28.1 % (21.0-51.0); %Monocytes 11.9 % (0.0-10.0); %Neutrophils 58.9 % (42.0-75.0); Hemoglobin 12.9 g/dL (12.0-16.0); Mean Corpuscular HGB CONC 32.6 g/dL (32.0-36.0); Mean Corpuscular Hemoglobin 29.8 pg (27.0-31.0); Mean Corpuscular Volume 91.3 fL (78.0-98.0); Mean Platelet Volume 6.3 fL (7.4-10.4); Platelet Count 336 thou/uL (130-400); RBC Distribution Width 14.5 % (11.5-14.5); Red Blood Cell (RBC) Count 4.32 mill/uL (4.20-5.40); White Blood Cell (WBC) Count 7.1 thou/uL (4.8-10.8)
[2019-07-14] MEDS ORDERED: methylPREDNISolone Sod Succ/PF 125 MG/2 ML VIAL ONE (05:16)
[2019-07-14 05:17] LABS: ALT (SGPT) 15 U/L (8-55); AST (SGOT) 13 U/L (5-34); Albumin 4.3 g/dL (3.4-4.8); Alkaline Phosphatase 71 U/L (40-110); Anion Gap 13 mmol/L (10-20); BUN (Urea Nitrogen) 9 mg/dL (9.8-20.1); Bilirubin, Total 0.7 mg/dL (0.2-1.2); Calc. Creatinine Clearance 0 mL/min (70-130); Carbon Dioxide 30 mmol/L (23-31); Chloride 102 mmol/L (98-107); Estimated GFR-MDRD 82; Globulin 2.4 g/dL (2.4-3.5); Glucose 110 mg/dL (80-115); Potassium 3.8 mmol/L (3.5-5.1); Protein, Total 6.7 g/dL (6.0-8.3); Sodium 141 mmol/L (136-145)
--- NOTE | 2019-07-14 07:32 | RAD ---
EXAM: Single view of the chest HISTORY: Difficulty breathing COMPARISON: 06/24/2019 FINDINGS: Single view of the chest shows a normal sized cardiomediastinal silhouette. There is no galileo dence of consolidation, mass, or pleural effusion. The bones are unremarkable. IMPRESSION: No evidence of acute cardiopulmonary disease
--- NOTE | 2019-07-18 15:03 | EKG ---
Test Reason : Blood Pressure : / mmHG Vent. Rate : 089 BPM Atrial Rate : 089 BPM P-R Int : 132 ms QRS Dur : 078 ms QT Int : 368 ms P-R-T Axes : 083 044 072 degrees QTc Int : 447 ms Normal sinus rhythm Possible Left atrial enlargement Borderline ECG Confirmed by TIAN JACQUES ([id number]), web content editor CLAYTON COX ([id number]) on 07/18/2019 3:03:04 PM Referred By: Confirmed By:TIAN JACQUES
== END 2019-07-14 06:03 | disposition home or self-care (01) ==
LOC: ERS 04:13
DX: J44.1 Chronic obstructive pulmonary disease with (acute) exacerbation (principal); R07.81 Pleurodynia; I10 Essential (primary) hypertension; E78.5 Hyperlipidemia, unspecified; E03.9 Hypothyroidism, unspecified; Z79.899 Other long term (current) drug therapy; Z87.891 Personal history of nicotine dependence
CPT/HCPCS: 36415; 71045; 80053; 83880; 84484; 85025; 93005; 94640; 94760; 96374; 96375; J1885; J2930; J7620

== ENCOUNTER 2019-07-15 09:35 | Emergency (ER) | payer MEDICARE, OTHER ==
--- NOTE | 2019-07-15 10:14 | RAD ---
Portable frontal chest radiograph: 07/15/2019 COMPARISON: 07/14/2019 HISTORY: Shortness of breath, chest pain FINDINGS: Lungs are clear. Heart and mediastinal contours appear within normal limits. Stable increas ed linear interstitial density with pulmonary hyperinflation suggests air trapping. IMPRESSION: No acute findings.
[2019-07-15 10:24] LABS: #Lymphocytes 1.7 thou/uL (1.20-3.40); #Neutrophils 5.8 thou/uL (1.40-6.50); %Eosinophils 0.3 % (0.0-10.0); %Lymphocytes 20.3 % (21.0-51.0); %Monocytes 11.7 % (0.0-10.0); %Neutrophils 67.7 % (42.0-75.0); Hemoglobin 11.6 g/dL (12.0-16.0); Mean Corpuscular HGB CONC 32.8 g/dL (32.0-36.0); Mean Corpuscular Hemoglobin 30.1 pg (27.0-31.0); Mean Corpuscular Volume 91.6 fL (78.0-98.0); Mean Platelet Volume 6.3 fL (7.4-10.4); Platelet Count 344 thou/uL (130-400); RBC Distribution Width 14.3 % (11.5-14.5); Red Blood Cell (RBC) Count 3.86 mill/uL (4.20-5.40); White Blood Cell (WBC) Count 8.6 thou/uL (4.8-10.8)
[2019-07-15 10:28] LABS: ALT (SGPT) 12 U/L (8-55); AST (SGOT) 13 U/L (5-34); Alkaline Phosphatase 60 U/L (40-110); Anion Gap 12 mmol/L (10-20); BUN (Urea Nitrogen) 14 mg/dL (9.8-20.1); Bilirubin, Total 0.5 mg/dL (0.2-1.2); Calc. Creatinine Clearance 0 mL/min (70-130); Calcium 9.5 mg/dL (7.8-10.44); Carbon Dioxide 30 mmol/L (23-31); Chloride 103 mmol/L (98-107); Estimated GFR-MDRD 71; Globulin 2.5 g/dL (2.4-3.5); Glucose 118 mg/dL (80-115); Potassium 3.8 mmol/L (3.5-5.1); Protein, Total 6.5 g/dL (6.0-8.3); Sodium 141 mmol/L (136-145)
[2019-07-15] MEDS ORDERED: Lorazepam 2 MG/ML VIAL ONE (10:55)
[2019-07-15] MEDS ORDERED: methylPREDNISolone Sod Succ/PF 125 MG/2 ML VIAL ONE (10:55)
--- NOTE | 2019-07-18 10:01 | EKG ---
Test Reason : Blood Pressure : / mmHG Vent. Rate : 102 BPM Atrial Rate : 102 BPM P-R Int : 116 ms QRS Dur : 088 ms QT Int : 346 ms P-R-T Axes : 063 055 067 degrees QTc Int : 450 ms Sinus tachycardia Possible Left atrial enlargement Borderline ECG Confirmed by FRANCISCO J TELLO D.O. ([id number]), department editor CLAYTON COX ([id number]) on 07/18/2019 10:00:43 AM Referred By: ELISHA Confirmed By:FRANCISCO J TELLO D.O.
== END 2019-07-15 16:23 | disposition home or self-care (01) ==
LOC: ERS 09:35
DX: J44.1 Chronic obstructive pulmonary disease with (acute) exacerbation (principal); F41.0 Panic disorder [episodic paroxysmal anxiety]; E03.9 Hypothyroidism, unspecified; E78.5 Hyperlipidemia, unspecified; I10 Essential (primary) hypertension; Z87.891 Personal history of nicotine dependence; Z79.899 Other long term (current) drug therapy; Z79.891 Long term (current) use of opiate analgesic
CPT/HCPCS: 36415; 71045; 80053; 84484; 85025; 93005; 94640; 96374; 96375; J2060; J2930

== ENCOUNTER 2019-07-23 10:08 | Inpatient (IN) | payer MEDICARE, OTHER ==
[2019-07-23] MEDS ORDERED: Albuterol Sulfate 2.5 mg/3 ml Neb ONE (10:24)
[2019-07-23] MEDS ORDERED: Dexamethasone 10 MG/ML VIAL ONE (10:29)
[2019-07-23] MEDS ORDERED: Magnesium 2 GM/50 ML BAG (IN WATER) ONE (10:29)
[2019-07-23 10:51] LABS: ALV-art Gradient 165.625 (0-20); Analyzer IN Cardio ER; Base Excess (BEa) 1.7 mEq/L (-2.0 to +3.0); CO2 Tension 39.9 mmHg (35.0-45.0); Calcium, Ionized 1.21 mmol/L (1.12-1.30); Carboxyhemoglobin (COHb) 0.3 gm% (0.0-3.0); Hemoglobin (Hb) 14.1 g/dL (12.0-16.0); O2 Tension (PaO2) 69.7 mmHg (> 80.0); Potassium - ABG Lab 3.28 mmol/L (3.70-5.30); Puncture Site RRA; pH, Arterial 7.43 (7.35-7.45)
[2019-07-23] MEDS ORDERED: Rocuronium Bromide 10 MG/ML (10ML VIAL) ONE ×2 (10:53→10:58)
[2019-07-23 10:56] LABS: #Lymphocytes 2.4 thou/uL (1.20-3.40); #Monocytes 0.9 thou/uL (0.11-0.59); #Neutrophils 9.7 thou/uL (1.40-6.50); %Basophils 0.2 % (0.0-1.0); %Eosinophils 0.3 % (0.0-10.0); %Lymphocytes 18.6 % (21.0-51.0); %Monocytes 6.5 % (0.0-10.0); %Neutrophils 74.4 % (42.0-75.0); Hemoglobin 13.5 g/dL (12.0-16.0); Mean Corpuscular HGB CONC 33.4 g/dL (32.0-36.0); Mean Corpuscular Hemoglobin 30.3 pg (27.0-31.0); Mean Corpuscular Volume 90.9 fL (78.0-98.0); Mean Platelet Volume 6.8 fL (7.4-10.4); Platelet Count 294 thou/uL (130-400); RBC Distribution Width 14.1 % (11.5-14.5); Red Blood Cell (RBC) Count 4.46 mill/uL (4.20-5.40); White Blood Cell (WBC) Count 13.1 thou/uL (4.8-10.8)
[2019-07-23] MEDS ORDERED: Rocuronium Bromide 50 MG/5 ML VIAL ONE (10:56)
[2019-07-23 11:22] LABS: ALT (SGPT) 14 U/L (8-55); AST (SGOT) 13 U/L (5-34); Alkaline Phosphatase 70 U/L (40-110); Anion Gap 14 mmol/L (10-20); BUN (Urea Nitrogen) 10 mg/dL (9.8-20.1); Bilirubin, Total 0.9 mg/dL (0.2-1.2); CK (CPK) 37 U/L (29-168); Calc. Creatinine Clearance 0 mL/min (70-130); Calcium 9.5 mg/dL (7.8-10.44); Carbon Dioxide 27 mmol/L (23-31); Chloride 101 mmol/L (98-107); Estimated GFR-MDRD 76; Globulin 2.2 g/dL (2.4-3.5); Glucose 178 mg/dL (80-115); Lipase 12 U/L (8-78); Potassium 3.4 mmol/L (3.5-5.1); Protein, Total 6.2 g/dL (6.0-8.3); Sodium 139 mmol/L (136-145)
[2019-07-23] MEDS ORDERED: Fentanyl 100 MCG/2 ML VIAL ONE (11:50)
[2019-07-23 12:29] LABS: Actual Bicarbonate (HCO3a) 25.4 mEq/L (22-28); Analyzer IN Cardio ER; Base Excess (BEa) 0.5 mEq/L (-2.0 to +3.0); CO2 Tension 42.3 mmHg (35.0-45.0); Calcium, Ionized 1.13 mmol/L (1.12-1.30); Carboxyhemoglobin (COHb) 0.3 gm% (0.0-3.0); Hemoglobin (Hb) 13.1 g/dL (12.0-16.0); Potassium - ABG Lab 3.18 mmol/L (3.70-5.30)
[2019-07-23 12:34] LABS: O2 Tension (PaO2) 59.7 mmHg (> 80.0); Puncture Site RRA
[2019-07-23 12:35] LABS: ALV-art Gradient 115.585 (0-20)
[2019-07-23] MEDS ORDERED: Ventilator Sedation Protocol 1 EACH FS SCH (13:00)
--- NOTE | 2019-07-23 13:11 | PDOC.HHP ---
Hospitalist HPI - History of Present Illness SOB History of Present Illness: Ms. Lima is a 64 y/o lady with PMH of COPD, hypothyroidism who was apparently brought in by EMS for shortness of breath. Patient was already intubated and mechanically ventilated upon assessment. Much of the history was obtained from the medical staff and chart. She reportedly was tachypneic into the 30s. Brought in and placed on BiPAP, found to become hypotensive with systolics into the 60s, given fluid resuscitation, but continued to be altered while on bipap. Decision was made to intubate her for airway protection. ABG prior to intuatbion showed pH of 7.4/PCO2 42/ PO2 59. Of note, she has been admitted last month for COPD exacerbation and has frequent hospitalizations for similar problem. Hospitalist ROS - Review of Systems ROS unobtainable: due to endotracheal tube - Medication Medications: Medication Instructions Recorded Confirmed Type Budesonide-Formoterol [Symbicort 2 puff INH BID 05/22/19 06/09/19 History 160-4.5] Hydroxychloroquine Sulfate 200 mg PO BID 05/22/19 06/09/19 History [Plaquenil] Levothyroxine Sodium [Synthroid] 75 mcg PO DAILY 05/22/19 06/09/19 History Pravastatin Sodium 40 mg PO HS 05/22/19 06/09/19 History Solifenacin Succinate [VESIcare] 5 mg PO DAILY 05/22/19 06/09/19 History Doxycycline [Vibramycin] 100 mg PO BID #8 cap 06/15/19 Rx Ipratropium/Albuterol Sulfate 3 ml NEB QID PRN #120 neb 06/15/19 Rx [DuoNeb] Lorazepam [Ativan] 0.25 mg PO TID PRN tab 06/15/19 Rx predniSONE 20 mg PO ASDIR #16 tab 06/15/19 Rx Hospitalist History - Past Medical History Source: RN notes reviewed Pulmonary: reports: COPD Endocrine: reports: Hypothyroidism - Past Surgical History Past Surgical History: reports: , Hernia Repair, Tonsillectomy - Family History Family History: reports: no pertinent history - Social History Smoking Status: Unknown if ever smoked Alcohol: reports: None Drugs: reports: none Living Situation: Alone - Exam General - other findings: Intubated and sedated Eye: PERRL, anicteric sclera ENT: normocephalic atraumatic Neck: supple, no JVD Heart: RRR, no murmur, no gallops, no rubs, normal peripheral pulses Respiratory: no wheezes, no ronchi, normal chest expansion Gastrointestinal: soft, non-distended, normal bowel sounds Neurological: no focal deficits Musculoskeletal: normal tone, no muscle wasting Hospitalist Results - Labs Result Diagrams: 07/23/19 10:44 07/23/19 10:44 Lab results: WBC 13.1 thou/uL (4.8-10.8) H 07/23/19 10:44 Hgb 13.5 g/dL (12.0-16.0) 07/23/19 10:44 Hct 40.5 % (36.0-47.0) 07/23/19 10:44 MCV 90.9 fL (78.0-98.0) 07/23/19 10:44 Plt Count 294 thou/uL (130-400) 07/23/19 10:44 Neutrophils % 74.4 % (42.0-75.0) 07/23/19 10:44 ABG pH 7.40 (7.35-7.45) 07/23/19 12:25 ABG pCO2 42.3 mmHg (35.0-45.0) 07/23/19 12:25 ABG pO2 59.7 mmHg (> 80.0) L* 07/23/19 12:25 Sodium 139 mmol/L (136-145) 07/23/19 10:44 Potassium 3.4 mmol/L (3.5-5.1) L 07/23/19 10:44 Chloride 101 mmol/L (98-107) 07/23/19 10:44 Carbon Dioxide 27 mmol/L (23-31) 07/23/19 10:44 BUN 10 mg/dL (9.8-20.1) 07/23/19 10:44 Creatinine 0.77 mg/dL (0.6-1.1) 07/23/19 10:44 Glucose 178 mg/dL (80-115) H 07/23/19 10:44 Lactic Acid 2.7 mmol/L (0.5-2.2) H 07/23/19 10:44 Calcium 9.5 mg/dL (7.8-10.44) 07/23/19 10:44 Total Bilirubin 0.9 mg/dL (0.2-1.2) 07/23/19 10:44 AST 13 U/L (5-34) 07/23/19 10:44 ALT 14 U/L (8-55) 07/23/19 10:44 Alkaline Phosphatase 70 U/L (40-110) 07/23/19 10:44 Creatine Kinase 37 U/L (29-168) 07/23/19 10:44 Troponin I 0.017 ng/mL (< 0.028) 07/23/19 10:44 B-Natriuretic Peptide 11.0 pg/mL (0-100) 07/23/19 10:44 Serum Total Protein 6.2 g/dL (6.0-8.3) 07/23/19 10:44 Albumin 4.0 g/dL (3.4-4.8) 07/23/19 10:44 Lipase 12 U/L (8-78) 07/23/19 10:44 Additional comment: VITAL SIGNS Zina Jul 23, 2019 10:14 NEREYDA Delgado, Rosio BP: 145/77, Pulse: 112, Resp: 19, Temp: 98.4 (Oral), O2 sat: 100 on (Face mask) , Time: 07/23/2019 10:14. - EKG Interpretation EK lead EKG shows, sinus tachycardia, Rate (beats per minute): 119, with premature atrial complexes with aberrant conduction, T waves, T wave abnormality , consider lateral ischemia, Clinical impression:, non-specific EKG, Possible left atrial enlargement, cannot rule out inferior infarct age undetermined. - Radiology Interpretation Chest x-ray Status: report reviewed by az Hospitalist H&P A/P - Problem (1) Acute hypoxemic respiratory failure Code(s): J96.01 - ACUTE RESPIRATORY FAILURE WITH HYPOXIA Status: Acute (2) COPD exacerbation Code(s): J44.1 - CHRONIC OBSTRUCTIVE PULMONARY DISEASE W (ACUTE) EXACERBATION Status: Acute (3) Leukocytosis Code(s): D72.829 - ELEVATED WHITE BLOOD CELL COUNT, UNSPECIFIED Status: Acute (4) Hypotension Status: Acute (5) Anxiety Code(s): F41.9 - ANXIETY DISORDER, UNSPECIFIED Status: Acute (6) Hypothyroidism Code(s): E03.9 - HYPOTHYROIDISM, UNSPECIFIED Status: Chronic Qualifiers: Hypothyroidism type: unspecified Qualified Code(s): E03.9 - Hypothyroidism , unspecified - Plan Plan: Admit to CCU and continue mechanical ventilation with sedation protocol Transient hypotension POA, but blood pressure has now responded Workup including CT chest high res, echocardiogram Empiric abx coverage including Cefepime and Vancomycin, pharmacy to dose Follow up culture results, this could be an early infectious process, check Urinalysis, legionella and strep antigens, procalcitonin, respiratory PCR panel. Management of COPD including DuoNeb and Methlyprednisone Code Status: Full Code ACP: Son is listed as next of kin, attempted to contact but no answer Disposition: Admit to CCU for management of respiratory failure, workup of intial respiratory failure/hypotension. Deescalate abx if no source of infxn present. Critical care time spent on patient > 45 minutes in planning and management of critically ill patient
[2019-07-23 13:15] LABS: Bacteria/HPF None Seen HPF (None Seen); Bilirubin Negative (Negative); Blood, Urine Trace (Negative); Clarity Clear (Clear); Glucose, Urine (Dipstick) 500 mg/dL (Negative); Leukocyte Negative Leu/uL (Negative); Nitrite Negative (Negative); Protein, Urine (Dipstick) Negative (Neg-Trace); RBC/HPF 0-3 HPF (0-3); Squamous Epithelial None Seen HPF (0-3); Urobilinogen Normal mg/dL (Less than 2); WBC/HPF 0-3 HPF (0-3)
[2019-07-23] MEDS ORDERED: DISCONTINUE PREVIOUS NARCOTIC PAIN MEDICATIONS AND BENZODIAZEPINES FS SCH (13:16)
[2019-07-23] MEDS ORDERED: Morphine 2 MG/ML SYRINGE SLOW IVP PRN (13:16)
[2019-07-23] MEDS ORDERED: Propofol BOLUS 1,000 MG/100 ML VIAL IV PRN (13:16)
[2019-07-23] MEDS ORDERED: Fentanyl BOLUS 250 ML IVPB PRN (13:16)
[2019-07-23] MEDS ORDERED: Lorazepam 2 MG/ML VIAL SLOW IVP PRN (13:16)
[2019-07-23] MEDS ORDERED: fentaNYL Citrate/PF 2,000 MCG in Sodium Chloride 0.9% 60 ML IV SCH (13:16)
--- NOTE | 2019-07-23 13:39 | RAD ---
RADIOGRAPH CHEST 1 VIEW: 07/23/2019 12:04 p.m. HISTORY: A 64-year-old female status post intubation. COMPARISON: 07/15/2019 FINDINGS: There are no air space densities, pulmonary edema, pneumothorax, or cardiomegaly. The lateral costop hrenic angles are sharp. New endotracheal tube at mid thoracic trachea, distal tip 5.5 cm superior to the tangela. New esophagogastric tube coursing into the upper abdomen, distal portion outside the fie ld of view. IMPRESSION: 1. No acute cardiopulmonary findings. 2. Placement of endotracheal tube. 3. Placement of esophagogastric tube. jn [] POS: [facility]
[2019-07-23 14:09] LABS: Lactic Acid 2.3 mmol/L (0.5-2.2)
[2019-07-23] MEDS: methylPREDNISolone Sod Succ 40 MG VIAL IVP SCH ×2 (15:42→22:05)
[2019-07-23] MEDS: Cefepime 2 GM in Sodium Chloride 0.9% 100 ML IVPB SCH (15:43)
[2019-07-23] MEDS: Sodium Chloride 0.9% 1,000 ML IV SCH ×2 (15:46→23:10)
[2019-07-23 16:22] VITALS: BMI 22.2
[2019-07-23] MEDS: Propofol 1,000 MG/100 ML VIAL IV PRN (17:03)
[2019-07-23] MEDS ORDERED: Vancomycin HCl 1 GM in Premix Bag 1 BAG IVPB SCH (21:00)
--- NOTE | 2019-07-23 21:38 | CON ---
DATE OF CONSULTATION: 07/23/2019 HISTORY OF PRESENT ILLNESS: Rufina Lima is a 64-year-old female, known to our practice. She presented with respiratory distress. She was actually awake when she arrived in the ICU and nodded that she had been short of breath for several days. Apparently, she was intubated shortly thereafter arrival in the emergency room. Apparently, she became hypotensive in the emergency room, was given volume, was encephalopathic, was intubated. PAST MEDICAL HISTORY: Remarkable for; 1. Severe chronic obstructive pulmonary disease, followed by Dr. Grimes. She was here in the hospital in mid May. 2. History of hypothyroidism, on replacement. 3. History of reflux. 4. Reported history of lupus. 5. History of hysterectomy. 6. History of tonsillectomy. HABITS: She is currently not smoking or drinking. REVIEW OF SYSTEMS: Ten-point review of systems is not obtainable because of intubation. PHYSICAL EXAMINATION: GENERAL: She is in no distress, she nodded quickly. VITAL SIGNS: Her expiratory phase was short. Heart rate is in the 70s, blood pressure 123/69, respiratory rate is 18. HEAD AND NECK: Unremarkable. LUNGS: Remarkable for distant wheezes. HEART: Regular rhythm. S1, S2 are normal. ABDOMEN: Soft and nontender. EXTREMITIES: Without clubbing, cyanosis, or edema. LABORATORY DATA: White count 13.1, hemoglobin 13.5, platelets 294. Electrolytes are normal. IMPRESSION: Respiratory failure secondary to advanced chronic obstructive pulmonary disease. I am told that she may have been intubated for hypotension and not because of respiratory failure. She did have altered mental status, so intubation obviously would be appropriate in that setting. She may be weanable in the morning. We will leave her mechanically ventilated, keep her sedated tonight. Continue nebulized treatments, steroids, antimicrobial therapy, and reassess her in the morning. Dr. Grimes will be notified of her admission. CRITICAL CARE TIME: 30 minutes. Job ID: [id number]
[2019-07-24] MEDS ORDERED: Vancomycin HCl 1 GM in Premix Bag 1 BAG IVPB SCH (01:00)
[2019-07-24] MEDS: Cefepime 2 GM in Sodium Chloride 0.9% 100 ML IVPB SCH (02:08)
[2019-07-24] MEDS: Propofol 1,000 MG/100 ML VIAL IV PRN (02:09)
[2019-07-24 04:12] LABS: #Lymphocytes 0.8 thou/uL (1.20-3.40); #Monocytes 0.3 thou/uL (0.11-0.59); #Neutrophils 7.8 thou/uL (1.40-6.50); %Basophils 0.1 % (0.0-1.0); %Eosinophils 0.3 % (0.0-10.0); %Lymphocytes 8.8 % (21.0-51.0); %Monocytes 3.5 % (0.0-10.0); %Neutrophils 87.3 % (42.0-75.0); Mean Corpuscular HGB CONC 32.7 g/dL (32.0-36.0); Mean Corpuscular Hemoglobin 29.6 pg (27.0-31.0); Mean Corpuscular Volume 90.4 fL (78.0-98.0); Mean Platelet Volume 7.2 fL (7.4-10.4); Platelet Count 239 thou/uL (130-400); RBC Distribution Width 14.1 % (11.5-14.5); Red Blood Cell (RBC) Count 4.07 mill/uL (4.20-5.40)
[2019-07-24 04:41] LABS: Anion Gap 11 mmol/L (10-20); BUN (Urea Nitrogen) 10 mg/dL (9.8-20.1); Calc. Creatinine Clearance 86 mL/min (70-130); Calcium 8.7 mg/dL (7.8-10.44); Carbon Dioxide 23 mmol/L (23-31); Chloride 110 mmol/L (98-107); Estimated GFR-MDRD Greater than 90; Glucose 161 mg/dL (80-115); Potassium 4.3 mmol/L (3.5-5.1); Sodium 140 mmol/L (136-145)
[2019-07-24] MEDS: methylPREDNISolone Sod Succ 40 MG VIAL IVP SCH ×3 (06:28→23:08)
[2019-07-24 07:48] LABS: Actual Bicarbonate (HCO3a) 22.9 mEq/L (22-28); Base Excess (BEa) -1.9 mEq/L (-2.0 to +3.0); Carboxyhemoglobin (COHb) 0.6 gm% (0.0-3.0); Hemoglobin (Hb) 12.2 g/dL (12.0-16.0); O2 Tension (PaO2) 81.9 mmHg (> 80.0); Potassium - ABG Lab 3.93 mmol/L (3.70-5.30); pH, Arterial 7.39 (7.35-7.45)
[2019-07-24 07:49] LABS: Puncture Site LRA
--- NOTE | 2019-07-24 09:11 | PRG ---
DATE OF SERVICE: 07/24/2019 SUBJECTIVE: She is a 64-year-old female, who is intubated, progressive respiratory failure. Saturations are 94% in the ER. I guess she was intubated with progressive respiratory failure. This morning, she is in the vent. Awake, alert, responsive. OBJECTIVE: VITAL SIGNS: Pulse 95, blood pressure 128/85, saturations are 100%, and respirations 16. CHEST: Decreased breath sounds. No wheezing. CARDIAC: Normal S1 and S2. No gallops. ABDOMEN: No masses. LABORATORY DATA: White count 9000, H and H are unremarkable, and platelet count is normal. Lytes are normal. Blood gas this morning, pO2 of 81, pCO2 of 39, and pH of 7.39. X-ray is clear. IMPRESSION: 1. Acute on chronic respiratory failure. 2. Chronic obstructive pulmonary disease exacerbation. PLAN: She will be weaned and extubated. Otherwise, agree with treatment, supportive care, PT. She may require nocturnal BiPAP for few days. One-half hour of critical care time. Job ID: [id number]
[2019-07-24] MEDS: Enoxaparin Sodium 40 MG/0.4 ML SYRINGE SC SCH (09:20)
[2019-07-24] MEDS: Sodium Chloride 0.9% 1,000 ML IV SCH ×2 (09:20→18:55)
--- NOTE | 2019-07-24 10:08 | PDOC.HOSPP ---
- Subjective Subjective: Estubated this AM. Lying comfortably in bed. On nasal cannula at 2L. no other issues overnight. - Objective Vital Signs & Weight: Vital Signs (12 hours) Temp Pulse Resp BP Pulse Ox 07/24/19 08:00 17 99 07/24/19 07:29 90 07/24/19 07:00 98.7 F 07/24/19 06:00 14 07/24/19 04:00 98.2 F 14 07/24/19 02:20 79 97/62 07/24/19 02:00 14 07/24/19 01:00 97.9 F 07/24/19 00:00 14 Weight Weight 138 lb 0.15 oz Most Recent Monitor Data Heart Rate from ECG 97 NIBP 135/71 NIBP BP-Mean 92 Respiration from ECG 19 SpO2 98 I&O: 07/23/19 07/24/19 07/25/19 06:59 06:59 06:59 Intake Total 1731.8 Output Total 3155 245 Balance -1423.2 -245 Result Diagrams: 07/24/19 03:20 07/24/19 03:20 Hospitalist ROS - Review of Systems Constitutional: denies: fever, chills, sweats, weakness, malaise, other Eyes: denies: pain, vision change, conjunctivae inflammation, eyelid inflammation, redness, other ENT: denies: ear pain, ear discharge, nose pain, nose discharge, nose congestion , mouth pain, mouth swelling, throat pain, throat swelling, other Respiratory: denies: cough, dry, shortness of breath, hemoptysis, SOB with excertion, pleuritic pain, sputum, wheezing, other Cardiovascular: denies: chest pain, palpitations, orthopnea, paroxysmal noc. dyspnea, edema, light headedness, other Gastrointestinal: denies: nausea, vomiting, abdominal pain, diarrhea, constipation, melena, hematochezia, other Genitourinary: denies: dysuria, frequency, incontinence, hematuria, retention, other - Medication Medications: Active Medications Generic Name Dose Route Start Last Admin Trade Name Freq PRN Reason Stop Dose Admin Albuterol/Ipratropium 3 ml 07/23/19 18:30 07/24/19 07:29 Duoneb NEB 3 ml [id number] MAKENNA Administration Enoxaparin Sodium 40 mg 07/24/19 09:00 07/24/19 09:20 Lovenox SC 40 mg 0900 MAKENNA Administration Sodium Chloride 1,000 mls @ 100 mls/hr 07/23/19 13:30 07/24/19 09:20 Normal Saline 0.9% IV 1,000 mls .Q10H MAKENNA Administration Methylprednisolone Sodium Succinate 40 mg 07/23/19 14:00 07/24/19 06:28 Solu-Medrol IVP 40 mg Q8HR MAKENNA Administration - Exam General Appearance: NAD, awake alert General - other findings: Frail Eye: PERRL, anicteric sclera ENT: normocephalic atraumatic, no oropharyngeal lesions, moist mucosa Neck: supple, symmetric, no JVD, no thyromegaly, no lymphadenopathy, no carotid bruit Heart: RRR, no murmur, no gallops, no rubs, normal peripheral pulses Respiratory - other findings: Diminished breathe sounds bilaterally Gastrointestinal: soft, non-tender, non-distended, normal bowel sounds, no palpable masses, no hepatomegaly, no splenomegaly, no bruit Extremities: no cyanosis, no clubbing, no edema Skin: normal turgor, no lesions, no rashes Neurological: cranial nerve grossly intact, normal sensation to touch, no weakness, no focal deficits, no new deficit Musculoskeletal: normal tone, normal strength, no muscle wasting Psychiatric: normal affect, normal behavior, A&O x 3 Hosp A/P (1) Acute hypoxemic respiratory failure Code(s): J96.01 - ACUTE RESPIRATORY FAILURE WITH HYPOXIA Status: Acute (2) COPD exacerbation Code(s): J44.1 - CHRONIC OBSTRUCTIVE PULMONARY DISEASE W (ACUTE) EXACERBATION Status: Acute (3) Leukocytosis Code(s): D72.829 - ELEVATED WHITE BLOOD CELL COUNT, UNSPECIFIED Status: Acute (4) Hypotension Status: Acute (5) Anxiety Code(s): F41.9 - ANXIETY DISORDER, UNSPECIFIED Status: Acute (6) Hypothyroidism Code(s): E03.9 - HYPOTHYROIDISM, UNSPECIFIED Status: Chronic Qualifiers: Hypothyroidism type: unspecified Qualified Code(s): E03.9 - Hypothyroidism , unspecified (7) SLE (systemic lupus erythematosus) Code(s): M32.9 - SYSTEMIC LUPUS ERYTHEMATOSUS, UNSPECIFIED Status: Chronic Qualifiers: Systemic lupus erythematosus type: unspecified - Plan Extubated this AM Continue steroids and management for COPD exacerbation PT mobility to chair Continue oxygen Restart home med for SLE and anxiety D/c abx, procal is 0.02 and WBC count is normalized Disposition: Continue tx. PT/OT today.
[2019-07-24] MEDS: Mometasone/Formoterol 120 PUFF INHALER INH SCH (18:22)
[2019-07-24] MEDS: Hydroxychloroquine Sulfate 200 MG TAB PO SCH (20:51)
[2019-07-24] MEDS: Lorazepam 0.5 MG TAB PO SCH (20:52)
[2019-07-25 04:39] LABS: #Lymphocytes 0.7 thou/uL (1.20-3.40); #Monocytes 0.5 thou/uL (0.11-0.59); #Neutrophils 14.4 thou/uL (1.40-6.50); %Eosinophils 0.1 % (0.0-10.0); %Lymphocytes 4.3 % (21.0-51.0); %Monocytes 3.4 % (0.0-10.0); %Neutrophils 92.2 % (42.0-75.0); Hemoglobin 11.5 g/dL (12.0-16.0); Mean Corpuscular HGB CONC 32.6 g/dL (32.0-36.0); Mean Corpuscular Hemoglobin 29.6 pg (27.0-31.0); Mean Corpuscular Volume 90.8 fL (78.0-98.0); Mean Platelet Volume 6.9 fL (7.4-10.4); Platelet Count 250 thou/uL (130-400); RBC Distribution Width 14.2 % (11.5-14.5); Red Blood Cell (RBC) Count 3.88 mill/uL (4.20-5.40); White Blood Cell (WBC) Count 15.6 thou/uL (4.8-10.8)
[2019-07-25 05:00] LABS: Anion Gap 10 mmol/L (10-20); BUN (Urea Nitrogen) 10 mg/dL (9.8-20.1); Calc. Creatinine Clearance 96 mL/min (70-130); Calcium 8.5 mg/dL (7.8-10.44); Carbon Dioxide 24 mmol/L (23-31); Chloride 111 mmol/L (98-107); Estimated GFR-MDRD Greater than 90; Glucose 157 mg/dL (80-115); Potassium 3.7 mmol/L (3.5-5.1); Sodium 141 mmol/L (136-145)
[2019-07-25] MEDS: Sodium Chloride 0.9% 1,000 ML IV SCH ×2 (05:39→22:12)
[2019-07-25] MEDS: Levothyroxine Sodium 75 MCG TAB PO SCH (05:40)
[2019-07-25] MEDS: methylPREDNISolone Sod Succ 40 MG VIAL IVP SCH ×3 (05:41→21:04)
[2019-07-25] MEDS: Mometasone/Formoterol 120 PUFF INHALER INH SCH ×2 (08:02→19:22)
[2019-07-25] MEDS: Enoxaparin Sodium 40 MG/0.4 ML SYRINGE SC SCH (08:10)
[2019-07-25] MEDS: Hydroxychloroquine Sulfate 200 MG TAB PO SCH ×2 (08:10→21:03)
[2019-07-25] MEDS: Lorazepam 0.5 MG TAB PO SCH ×2 (08:10→21:03)
[2019-07-25] MEDS ORDERED: predniSONE 5 MG TAB PO SCH (09:00)
--- NOTE | 2019-07-25 16:58 | PRG ---
DATE OF SERVICE: 07/25/2019 SUBJECTIVE: The patient is doing reasonably well but complains of her heart beat being too rapid. I checked with the missile technician. She has only been in sinus rhythm. No atrial fibrillation. Her pulse has gone up as high as 130. OBJECTIVE: VITAL SIGNS: Currently, her temperature is 97.9, pulse 111, respirations 12, O2 saturation 96%, and blood pressure 117/74. HEENT: Unremarkable. NECK: No adenopathy or JVD. CHEST: Clear without wheezing. CARDIAC: S1, S2. Mildly tachycardic. ABDOMEN: Soft. EXTREMITIES: No edema. ASSESSMENT: 1. Chronic obstructive pulmonary disease with exacerbation. 2. Acute on chronic respiratory failure. PLAN: I will go ahead and decrease her nebs to every 6 hours as that may be contributing to the tachycardia. Hopefully, home soon. Job ID: [id number]
--- NOTE | 2019-07-25 17:19 | PDOC.HOSPP ---
- Subjective Encounter Date: 07/25/19 Encounter Time: 08:20 Subjective: Pt seen for followup re: acute hypoxic respiratory failure. Cough+, sputum+ - Objective Vital Signs & Weight: Vital Signs (12 hours) Temp Pulse Pulse Pulse Resp BP BP 07/25/19 16:00 97.9 F 111 H 12 07/25/19 15:15 107 H 16 07/25/19 11:18 98.6 F 107 H 20 07/25/19 11:04 99 16 07/25/19 09:12 104 H 107 H 152/71 H 155/72 H 07/25/19 08:05 98 F 99 20 07/25/19 08:02 107 H 16 07/25/19 07:55 07/25/19 07:53 107 H 16 BP Pulse Ox Pulse Ox Pulse Ox 07/25/19 16:00 177/74 H 96 07/25/19 15:15 07/25/19 11:18 143/73 H 96 07/25/19 11:04 07/25/19 09:12 96 95 07/25/19 08:05 139/67 20 L 07/25/19 08:02 07/25/19 07:55 96 07/25/19 07:53 Weight Weight 138 lb 0.15 oz Most Recent Monitor Data Heart Rate from ECG 111 NIBP 146/74 NIBP BP-Mean 98 Respiration from ECG 22 SpO2 98 I&O: 07/24/19 07/25/19 07/26/19 06:59 06:59 06:59 Intake Total 1731.8 3829 Output Total 3155 4425 Balance -1423.2 -596 Result Diagrams: 07/25/19 04:28 07/25/19 04:28 Additional Labs: Labs and MARs reviewed by me EKG Reviewed by me: Yes (Tele: sinus tachycardia) Hospitalist ROS - Review of Systems Respiratory: reports: cough, SOB with excertion, sputum, wheezing. denies: dry , shortness of breath, hemoptysis, pleuritic pain Cardiovascular: denies: chest pain, palpitations, orthopnea, paroxysmal noc. dyspnea, edema, light headedness - Medication Medications: Active Medications Generic Name Dose Route Start Last Admin Trade Name Freq PRN Reason Stop Dose Admin Enoxaparin Sodium 40 mg 07/24/19 09:00 07/25/19 08:10 Lovenox SC 40 mg 0900 MAKENNA Administration Hydroxychloroquine Sulfate 200 mg 07/24/19 21:00 07/25/19 08:10 Plaquenil PO 200 mg BID MAKENNA Administration Sodium Chloride 1,000 mls @ 100 mls/hr 07/23/19 13:30 07/25/19 05:39 Normal Saline 0.9% IV 1,000 mls .Q10H MAKENNA Administration Levothyroxine Sodium 75 mcg 07/25/19 06:00 07/25/19 05:40 Synthroid PO 75 mcg 0600 MAKENNA Administration Lorazepam 0.25 mg 07/24/19 21:00 07/25/19 08:10 Ativan PO 0.25 mg BID MAKENNA Administration Methylprednisolone Sodium Succinate 40 mg 07/23/19 14:00 07/25/19 14:15 Solu-Medrol IVP 40 mg Q8HR MAKENNA Administration Mometasone Furoate/Formoterol Fumar 2 puff 07/24/19 18:30 07/25/19 08:02 Dulera 200 Mcg/5 Mcg Inhaler INH 2 puff BID-RT MAKENNA Administration - Exam General Appearance: NAD Eye: anicteric sclera ENT: moist mucosa Neck: supple Heart - other findings: S1, S2, reg, tachy Respiratory: no wheezes, no rales Gastrointestinal: soft, non-tender Extremities: no edema Musculoskeletal: normal tone, normal strength Psychiatric: normal affect, normal behavior Hosp A/P - Plan - Assessment: (1) Acute hypoxemic respiratory failure Code(s): J96.01 - ACUTE RESPIRATORY FAILURE WITH HYPOXIA Status: Acute (2) COPD exacerbation Code(s): J44.1 - CHRONIC OBSTRUCTIVE PULMONARY DISEASE W (ACUTE) EXACERBATION Status: Acute (3) Anxiety Code(s): F41.9 - ANXIETY DISORDER, UNSPECIFIED Status: Acute (4) Hypothyroidism Code(s): E03.9 - HYPOTHYROIDISM, UNSPECIFIED Status: Chronic Qualifiers: Hypothyroidism type: unspecified Qualified Code(s): E03.9 - Hypothyroidism , unspecified (5) Leukocytosis Code(s): D72.829 - ELEVATED WHITE BLOOD CELL COUNT, UNSPECIFIED Status: Acute (6) Hypotension Status: Resolved Leucocytosis likely secondary to steroid use - Plan: Plan: Pt is clinically improving. Continue bronchodilators and steroids. Pt is off of antibiotics.
[2019-07-26] MEDS: Sodium Chloride 0.9% 1,000 ML IV SCH (05:15)
[2019-07-26] MEDS: Levothyroxine Sodium 75 MCG TAB PO SCH (05:52)
[2019-07-26] MEDS: methylPREDNISolone Sod Succ 40 MG VIAL IVP SCH ×3 (05:52→21:43)
[2019-07-26] MEDS: Hydroxychloroquine Sulfate 200 MG TAB PO SCH ×2 (08:55→19:53)
[2019-07-26] MEDS: Lorazepam 0.5 MG TAB PO SCH ×2 (08:56→19:52)
[2019-07-26] MEDS: Enoxaparin Sodium 40 MG/0.4 ML SYRINGE SC SCH (09:00)
[2019-07-26] MEDS: Mometasone/Formoterol 120 PUFF INHALER INH SCH ×2 (09:05→20:01)
[2019-07-26 09:48] LABS: #Lymphocytes 1.1 thou/uL (1.20-3.40); #Monocytes 0.6 thou/uL (0.11-0.59); #Neutrophils 13.9 thou/uL (1.40-6.50); %Eosinophils 0.2 % (0.0-10.0); %Lymphocytes 6.8 % (21.0-51.0); %Monocytes 3.8 % (0.0-10.0); %Neutrophils 89.2 % (42.0-75.0); Hemoglobin 12.6 g/dL (12.0-16.0); Mean Corpuscular HGB CONC 31.7 g/dL (32.0-36.0); Mean Corpuscular Volume 91.6 fL (78.0-98.0); Platelet Count 280 thou/uL (130-400); RBC Distribution Width 14.3 % (11.5-14.5); Red Blood Cell (RBC) Count 4.34 mill/uL (4.20-5.40); White Blood Cell (WBC) Count 15.6 thou/uL (4.8-10.8)
[2019-07-26 10:09] LABS: Anion Gap 15 mmol/L (10-20); BUN (Urea Nitrogen) 10 mg/dL (9.8-20.1); Calc. Creatinine Clearance 83 mL/min (70-130); Calcium 9.2 mg/dL (7.8-10.44); Carbon Dioxide 25 mmol/L (23-31); Chloride 103 mmol/L (98-107); Estimated GFR-MDRD 85; Glucose 170 mg/dL (80-115); Potassium 3.4 mmol/L (3.5-5.1); Sodium 140 mmol/L (136-145)
[2019-07-26] MEDS ORDERED: Cefdinir 300 MG CAP PO SCH (10:15)
--- NOTE | 2019-07-26 14:15 | PRG ---
DATE OF SERVICE: 07/26/2019 SUBJECTIVE: The patient is still complaining of tachycardia intermittently. OBJECTIVE: VITAL SIGNS: Show a maximum pulse of around 111 for the day today, her temperature is 97.8, O2 saturation 95% on 2 L, blood pressure 162/81. HEENT: Unremarkable. NECK: No adenopathy or JVD. LUNGS: Fairly clear anteriorly. CARDIAC: S1 and S2, regular. ABDOMEN: Soft. EXTREMITIES: No edema. LABORATORY DATA: White blood cell count 15.6, hematocrit 39.8, and platelet count 280. Sodium 140, potassium 3.4, chloride 103, CO2 of 25, BUN 10, creatinine 0.7, glucose 170. ASSESSMENT: 1. Chronic obstructive pulmonary disease with exacerbation. 2. Acute on chronic respiratory failure. 3. Tachycardia. PLAN: Nebulizer treatments have been decreased every 6 hours. She has been started on Cardizem by Dr. Govea. I will go ahead and reduce her steroid dose. In all likelihood, she can be discharged by tomorrow. Job ID: [id number]
--- NOTE | 2019-07-26 15:28 | PDOC.HOSPP ---
- Subjective Encounter Date: 07/26/19 Encounter Time: 08:00 Subjective: Pt seen for followup re: acute on chronic hypoxic respiratory failure. c/o yellowish sputum. - Objective Vital Signs & Weight: Vital Signs (12 hours) Temp Pulse Resp BP Pulse Ox 07/26/19 13:18 106 H 16 07/26/19 11:04 97.8 F 106 H 24 H 162/81 H 95 07/26/19 09:05 102 H 16 07/26/19 09:00 100 07/26/19 08:58 102 H 16 07/26/19 08:50 98.4 F 111 H 14 166/75 H 98 07/26/19 03:30 97.4 F L 92 18 152/84 H 97 Weight Weight 139 lb Most Recent Monitor Data Heart Rate from ECG 111 NIBP 146/74 NIBP BP-Mean 98 Respiration from ECG 22 SpO2 98 I&O: 07/25/19 07/26/19 07/27/19 06:59 06:59 06:59 Intake Total 3829 4085 Output Total 4425 Balance -596 4085 Result Diagrams: 07/26/19 09:40 07/26/19 09:40 Additional Labs: Labs and MARs reviewed by me EKG Reviewed by me: Yes (Tele: NSR) Hospitalist ROS - Review of Systems Respiratory: reports: cough, sputum. denies: dry, shortness of breath, hemoptysis, SOB with excertion, pleuritic pain, wheezing Cardiovascular: denies: chest pain, palpitations, orthopnea, paroxysmal noc. dyspnea, edema, light headedness - Medication Medications: Active Medications Generic Name Dose Route Start Last Admin Trade Name Freq PRN Reason Stop Dose Admin Albuterol/Ipratropium 3 ml 07/25/19 19:00 07/26/19 13:18 Duoneb NEB 3 ml [id number] MAKENNA Administration Enoxaparin Sodium 40 mg 07/24/19 09:00 07/26/19 09:00 Lovenox SC 40 mg 0900 MAKENNA Administration Hydroxychloroquine Sulfate 200 mg 07/24/19 21:00 07/26/19 08:55 Plaquenil PO 200 mg BID MAKENNA Administration Levothyroxine Sodium 75 mcg 07/25/19 06:00 07/26/19 05:52 Synthroid PO 75 mcg 0600 MAKENNA Administration Lorazepam 0.25 mg 07/24/19 21:00 07/26/19 08:56 Ativan PO 0.25 mg BID MAKENNA Administration Methylprednisolone Sodium Succinate 20 mg 07/26/19 14:00 07/26/19 14:16 Solu-Medrol IVP 20 mg Q8HR MAKENNA Administration Mometasone Furoate/Formoterol Fumar 2 puff 07/24/19 18:30 07/26/19 09:05 Dulera 200 Mcg/5 Mcg Inhaler INH 2 puff BID-RT MAKENNA Administration - Exam General Appearance: NAD Eye: anicteric sclera ENT: moist mucosa Neck: supple Heart: RRR Respiratory: CTAB Gastrointestinal: soft, non-tender Extremities: no cyanosis Skin: no rashes Psychiatric: normal affect, normal behavior Hosp A/P - Plan - Assessment: (1) Acute hypoxemic respiratory failure Code(s): J96.01 - ACUTE RESPIRATORY FAILURE WITH HYPOXIA Status: Acute (2) COPD exacerbation Code(s): J44.1 - CHRONIC OBSTRUCTIVE PULMONARY DISEASE W (ACUTE) EXACERBATION Status: Acute (3) Anxiety Code(s): F41.9 - ANXIETY DISORDER, UNSPECIFIED Status: Acute (4) Hypothyroidism Code(s): E03.9 - HYPOTHYROIDISM, UNSPECIFIED Status: Chronic Qualifiers: Hypothyroidism type: unspecified Qualified Code(s): E03.9 - Hypothyroidism , unspecified (5) Leukocytosis Code(s): D72.829 - ELEVATED WHITE BLOOD CELL COUNT, UNSPECIFIED Status: Acute (6) Hypotension Status: Resolved Leucocytosis likely secondary to steroid use - Plan: Plan: Pt is clinically improving. Add cefdinir. Continue bronchodilators and steroids. BP high, mild tachycardia, add Cardizem.
[2019-07-26] MEDS ORDERED: Potassium Chloride 20 MEQ TAB PO SCH (15:30)
[2019-07-26] MEDS: Cefdinir 300 MG CAP PO SCH (19:52)
[2019-07-26] MEDS: Famotidine 20 MG TAB PO SCH (19:53)
[2019-07-27 04:42] LABS: #Monocytes 1.1 thou/uL (0.11-0.59); #Neutrophils 11.3 thou/uL (1.40-6.50); %Basophils 0.3 % (0.0-1.0); %Eosinophils 0.3 % (0.0-10.0); %Lymphocytes 7.7 % (21.0-51.0); %Monocytes 8.1 % (0.0-10.0); %Neutrophils 83.6 % (42.0-75.0); Hemoglobin 12.6 g/dL (12.0-16.0); Mean Corpuscular HGB CONC 31.1 g/dL (32.0-36.0); Mean Corpuscular Hemoglobin 28.5 pg (27.0-31.0); Mean Corpuscular Volume 91.6 fL (78.0-98.0); Mean Platelet Volume 6.9 fL (7.4-10.4); Platelet Count 274 thou/uL (130-400); RBC Distribution Width 14.1 % (11.5-14.5); Red Blood Cell (RBC) Count 4.43 mill/uL (4.20-5.40); White Blood Cell (WBC) Count 13.5 thou/uL (4.8-10.8)
[2019-07-27 05:07] LABS: Anion Gap 14 mmol/L (10-20); BUN (Urea Nitrogen) 14 mg/dL (9.8-20.1); Calc. Creatinine Clearance 85 mL/min (70-130); Calcium 9.6 mg/dL (7.8-10.44); Carbon Dioxide 29 mmol/L (23-31); Chloride 103 mmol/L (98-107); Estimated GFR-MDRD 88; Glucose 142 mg/dL (80-115); Potassium 4.6 mmol/L (3.5-5.1); Sodium 141 mmol/L (136-145)
[2019-07-27] MEDS: methylPREDNISolone Sod Succ 40 MG VIAL IVP SCH (05:43)
[2019-07-27] MEDS: Levothyroxine Sodium 75 MCG TAB PO SCH (05:43)
[2019-07-27] MEDS: Mometasone/Formoterol 120 PUFF INHALER INH SCH ×2 (07:01→19:40)
--- NOTE | 2019-07-27 09:36 | PRG ---
DATE OF SERVICE: SUBJECTIVE: This morning, she is awake, alert, responsive. She says she is not ready to go home. OBJECTIVE: VITAL SIGNS: Saturations are 97 on 2 L, respiratory rate 15, temperature 98, pulse 98, blood pressure 159/75. CHEST: Decreased breath sounds. No wheezing. CARDIAC: Normal S1 and S2. No gallops. ABDOMEN: No masses. IMPRESSION: Chronic obstructive pulmonary disease exacerbation, bronchitis, respiratory failure. PLAN: She can be discharged home any time. Follow up with the primary care physician. Job ID: [id number]
[2019-07-27] MEDS: Famotidine 20 MG TAB PO SCH ×2 (09:47→20:42)
[2019-07-27] MEDS: Lorazepam 0.5 MG TAB PO SCH ×2 (09:47→20:42)
[2019-07-27] MEDS: Cefdinir 300 MG CAP PO SCH ×2 (09:47→20:42)
[2019-07-27] MEDS: Hydroxychloroquine Sulfate 200 MG TAB PO SCH ×2 (09:48→20:42)
[2019-07-27] MEDS: Enoxaparin Sodium 40 MG/0.4 ML SYRINGE SC SCH (09:49)
--- NOTE | 2019-07-27 18:16 | PDOC.HOSPP ---
- Subjective Encounter Date: 07/27/19 Encounter Time: 09:00 Subjective: Pt seen for followup re: acute on chronic hypoxic respiratory failure. Feels weak. - Objective Vital Signs & Weight: Vital Signs (12 hours) Temp Pulse Pulse Pulse Pulse Resp BP 07/27/19 15:50 97.9 F 94 19 07/27/19 14:04 90 16 07/27/19 11:20 98.5 F 97 15 07/27/19 09:04 117 H 91 101 H 175/91 H 07/27/19 07:23 98.1 F 98 15 07/27/19 07:01 80 14 BP BP Pulse Ox 07/27/19 15:50 134/70 96 07/27/19 14:04 07/27/19 11:20 164/86 H 99 07/27/19 09:04 167/79 H 07/27/19 07:23 159/75 H 94 L 07/27/19 07:01 Weight Weight 126 lb Most Recent Monitor Data Heart Rate from ECG 111 NIBP 146/74 NIBP BP-Mean 98 Respiration from ECG 22 SpO2 98 I&O: 07/26/19 07/27/19 07/28/19 06:59 06:59 06:59 Intake Total 4085 2200 Output Total 2400 Balance 4085 -200 Result Diagrams: 07/27/19 04:20 07/27/19 04:20 Additional Labs: Labs and MARs reviewed by me EKG Reviewed by me: Yes (Tele: NSR) Hospitalist ROS - Review of Systems Constitutional: reports: weakness Respiratory: reports: SOB with excertion Cardiovascular: denies: chest pain, palpitations, orthopnea, paroxysmal noc. dyspnea, edema, light headedness Gastrointestinal: denies: nausea, vomiting, abdominal pain, diarrhea, constipation, melena, hematochezia - Medication Medications: Active Medications Generic Name Dose Route Start Last Admin Trade Name Freq PRN Reason Stop Dose Admin Albuterol/Ipratropium 3 ml 07/25/19 19:00 07/27/19 14:04 Duoneb NEB 3 ml [id number] MAKENNA Administration Cefdinir 300 mg 07/26/19 21:00 07/27/19 09:47 Omnicef PO 300 mg BID MAKENNA Administration Diltiazem HCl 120 mg 07/27/19 09:00 07/27/19 09:46 Cardizem Cd PO 120 mg DAILY MAKENNA Administration Enoxaparin Sodium 40 mg 07/24/19 09:00 07/27/19 09:49 Lovenox SC 40 mg 09 MAKENNA Administration Famotidine 20 mg 07/26/19 21:00 07/27/19 09:47 Pepcid PO 20 mg BID MAKENNA Administration Hydroxychloroquine Sulfate 200 mg 07/24/19 21:00 07/27/19 09:48 Plaquenil PO 200 mg BID MAKENNA Administration Levothyroxine Sodium 75 mcg 07/25/19 06:00 07/27/19 05:43 Synthroid PO 75 mcg 0600 MAKENNA Administration Lorazepam 0.25 mg 07/24/19 21:00 07/27/19 09:47 Ativan PO 0.25 mg BID MAKENNA Administration Mometasone Furoate/Formoterol Fumar 2 puff 07/24/19 18:30 07/27/19 07:01 Dulera 200 Mcg/5 Mcg Inhaler INH 2 puff BID-RT MAKENNA Administration - Exam General Appearance: NAD Eye: anicteric sclera ENT: moist mucosa Neck: supple, no JVD Heart: RRR, no rubs Respiratory: CTAB Gastrointestinal: soft, non-tender Extremities: no cyanosis Musculoskeletal: generalized weakness Psychiatric: normal affect, normal behavior Hosp A/P - Plan - Assessment: (1) Acute hypoxemic respiratory failure Code(s): J96.01 - ACUTE RESPIRATORY FAILURE WITH HYPOXIA Status: Acute (2) COPD exacerbation Code(s): J44.1 - CHRONIC OBSTRUCTIVE PULMONARY DISEASE W (ACUTE) EXACERBATION Status: Acute (3) Anxiety Code(s): F41.9 - ANXIETY DISORDER, UNSPECIFIED Status: Acute (4) Hypothyroidism Code(s): E03.9 - HYPOTHYROIDISM, UNSPECIFIED Status: Chronic Qualifiers: Hypothyroidism type: unspecified Qualified Code(s): E03.9 - Hypothyroidism , unspecified (5) Leukocytosis Code(s): D72.829 - ELEVATED WHITE BLOOD CELL COUNT, UNSPECIFIED Status: Acute (6) Hypotension Status: Resolved Leucocytosis likely secondary to steroid use - Plan: Plan: Pt does not feel likel she can manage at home. Continue cefdinir, bronchodilators and steroids.
[2019-07-28 05:13] LABS: Anion Gap 9 mmol/L (10-20); BUN (Urea Nitrogen) 25 mg/dL (9.8-20.1); Calc. Creatinine Clearance 76 mL/min (70-130); Calcium 9.1 mg/dL (7.8-10.44); Carbon Dioxide 31 mmol/L (23-31); Chloride 102 mmol/L (98-107); Estimated GFR-MDRD 86; Glucose 86 mg/dL (80-115); Potassium 3.4 mmol/L (3.5-5.1); Sodium 139 mmol/L (136-145)
[2019-07-28 05:22] LABS: Hemoglobin 12.5 g/dL (12.0-16.0); Lymphocytes 23 % (21-51); MDiff Complete? YES; Mean Corpuscular HGB CONC 32.2 g/dL (32.0-36.0); Mean Corpuscular Hemoglobin 29.1 pg (27.0-31.0); Mean Corpuscular Volume 90.5 fL (78.0-98.0); Mean Platelet Volume 6.9 fL (7.4-10.4); Monocytes 5 % (0-10); Neutrophil 72 % (42-75); Platelet Count 249 thou/uL (130-400); Platelet Morphology Comment Appears Adequate; RBC Distribution Width 14.1 % (11.5-14.5); RBC Morphology Normal; Red Blood Cell (RBC) Count 4.28 mill/uL (4.20-5.40); White Blood Cell (WBC) Count 13.4 thou/uL (4.8-10.8)
[2019-07-28] MEDS: Levothyroxine Sodium 75 MCG TAB PO SCH (05:34)
[2019-07-28] MEDS: Mometasone/Formoterol 120 PUFF INHALER INH SCH (06:39)
[2019-07-28] MEDS ORDERED: predniSONE 20 MG TAB PO SCH (08:00)
[2019-07-28] MEDS: Hydroxychloroquine Sulfate 200 MG TAB PO SCH (09:31)
[2019-07-28] MEDS: Cefdinir 300 MG CAP PO SCH (09:31)
[2019-07-28] MEDS: Enoxaparin Sodium 40 MG/0.4 ML SYRINGE SC SCH (09:32)
[2019-07-28] MEDS: Lorazepam 0.5 MG TAB PO SCH (09:32)
[2019-07-28] MEDS: Famotidine 20 MG TAB PO SCH (09:32)
[2019-07-28] MEDS ORDERED: Potassium Chloride 20 MEQ TAB PO SCH (14:15)
[2019-07-28 15:55] VITALS: TEMP 96.8
[2019-07-28 16:27] VITALS: BP 133/81
--- NOTE | 2019-07-29 02:48 | DIS ---
DATE OF ADMISSION: 07/23/2019 DATE OF DISCHARGE: 07/28/2019 PRIMARY CARE PROVIDER: Mart Velasquez MD DISCHARGE DIAGNOSES: 1. Acute on chronic hypoxic respiratory failure. 2. Chronic obstructive pulmonary disease exacerbation. 3. Hypertension. CONDITION OF PATIENT ON THE DAY OF DISCHARGE: Stable. I assessed Ms. Lima on the day of discharge. She denies any chest pain. Shortness of breath has improved. Vital signs are stable. S1 and S2 are heard, regular. Lungs are clear to auscultation bilaterally. CONSULTATIONS DURING THIS HOSPITALIZATION: Pulmonary and Critical Care Medicine, Dr. Jones. HOSPITAL COURSE: Ms. Lima is a pleasant 64-year-old lady, who was admitted to [facility] on July 23, 2019, for acute on chronic hypoxic respiratory failure secondary to COPD exacerbation. She was intubated and managed in the intensive care unit. She was extubated on July 24, 2019. 2D echocardiogram done during this hospitalization showed left ventricular ejection fraction of 55% to 60%, E/A flow reversal suggestive of diastolic dysfunction, mild mitral regurgitation, mild tricuspid regurgitation, and normal pulmonary artery pressure. Her blood pressures were elevated during this hospitalization. She has been started on Cardizem. She was advised to check her blood pressure and heart rate 3 times a day and show the readings to her primary care provider. She is being discharged home with home health through guardian. She has been cleared for discharge by Pulmonology Service. On the day of discharge, she has white count [address], hemoglobin 12.5, platelet count 249,000. Sodium 139, potassium 3.4, which is being replaced, blood urea nitrogen 25, and creatinine 0.69. DISCHARGE MEDICATIONS: New medications are: 1. Oral prednisone taper. 2. Dulera 200/5 mcg inhaler two puffs 2 times a day. 3. Cefdinir 300 mg 2 times a day for five days. 4. Cardizem CD 120 mg daily. 5. She has been advised to resume her prednisone 5 mg daily, which was her home dose after the end of prednisone taper. The remainder of her home medications will be resumed, includin. Plaquenil 200 mg 2 times a day. 2. Synthroid 75 mcg daily. 3. Ativan 0.25 mg 2 times a day. She is getting a prescription for six doses of this medication, pravastatin 40 mg at bedtime, VESIcare 5 mg daily. POST ACUTE CARE FOLLOWUP: Pulmonology in 2 to 3 weeks and with primary care provider in 3 days. DIET: Regular diet. ACTIVITY: Activity as tolerated. Many thanks for allowing me to participate in your patient's care. Please feel free to contact me with any questions or concerns. DISCHARGE DESTINATION: Home. TIME SPENT: Total amount of time spent coordinating this discharge: 31 minutes. Job ID: [id number]
== END 2019-07-28 15:54 | disposition home or self-care (01) | DRG 208 ==
LOC: ERS 10:08 → CCU 11:40 → 2NO 07-24 18:52
PROVIDERS: ADMIT Internal Medicine; ATTEND Internal Medicine
PROC: 0BH18EZ Insertion of Endotracheal Airway into Trachea, Via Natural or Artificial Opening Endoscopic (ICD-10-PCS; principal; 2019-07-23)
PROC: 5A1935Z Respiratory Ventilation, Less than 24 Consecutive Hours (ICD-10-PCS; 2019-07-23)
DX: J43.9 Emphysema, unspecified (principal); J96.21 Acute and chronic respiratory failure with hypoxia; G93.40 Encephalopathy, unspecified; M32.9 Systemic lupus erythematosus, unspecified; E03.9 Hypothyroidism, unspecified; E78.5 Hyperlipidemia, unspecified; I10 Essential (primary) hypertension; F41.9 Anxiety disorder, unspecified; D72.829 Elevated white blood cell count, unspecified; T38.0X5A Adverse effect of glucocorticoids and synthetic analogues, initial encounter; Z87.891 Personal history of nicotine dependence; Z88.5 Allergy status to narcotic agent; Z88.2 Allergy status to sulfonamides; Z79.52 Long term (current) use of systemic steroids; Z79.51 Long term (current) use of inhaled steroids; Z79.899 Other long term (current) drug therapy; I95.89 Other hypotension; K21.9 Gastro-esophageal reflux disease without esophagitis
CPT/HCPCS: 31500; 36415; 36556; 71045; 80048; 80053; 80061; 81003; 81015; 82306; 82550; 82805; 83605; 83690; 83880; 84145; 84443; 84484; 85025; 87040; 87804; 93005; 93306; 94002; 94003; 94640; 94660; 96361; 96365; 96375; 99292; J0692; J1100; J1650; J1956; J2060; J2704; J2920; J3010; J3370; J3475; J3490; J7512; J7611; J7620

== ENCOUNTER 2019-08-17 16:04 | Inpatient (IN) | payer MEDICARE, OTHER ==
[2019-08-17] MEDS ORDERED: Magnesium 2 GM/50 ML BAG (IN WATER) ONE (16:56)
[2019-08-17 17:02] LABS: #Lymphocytes 0.7 thou/uL (1.20-3.40); #Monocytes 0.5 thou/uL (0.11-0.59); #Neutrophils 5.1 thou/uL (1.40-6.50); %Eosinophils 0.7 % (0.0-10.0); %Lymphocytes 10.8 % (21.0-51.0); %Monocytes 7.6 % (0.0-10.0); %Neutrophils 80.9 % (42.0-75.0); Hemoglobin 12.3 g/dL (12.0-16.0); Mean Corpuscular HGB CONC 34.3 g/dL (32.0-36.0); Mean Corpuscular Hemoglobin 31.3 pg (27.0-31.0); Mean Corpuscular Volume 91.4 fL (78.0-98.0); Mean Platelet Volume 6.9 fL (7.4-10.4); Platelet Count 238 thou/uL (130-400); Red Blood Cell (RBC) Count 3.94 mill/uL (4.20-5.40); White Blood Cell (WBC) Count 6.3 thou/uL (4.8-10.8)
[2019-08-17 17:29] LABS: ALT (SGPT) 18 U/L (8-55); AST (SGOT) 16 U/L (5-34); Albumin 4.2 g/dL (3.4-4.8); Alkaline Phosphatase 79 U/L (40-110); Anion Gap 15 mmol/L (10-20); BUN (Urea Nitrogen) 9 mg/dL (9.8-20.1); Bilirubin, Total 0.9 mg/dL (0.2-1.2); Calc. Creatinine Clearance 0 mL/min (70-130); Calcium 9.7 mg/dL (7.8-10.44); Carbon Dioxide 25 mmol/L (23-31); Chloride 104 mmol/L (98-107); Estimated GFR-MDRD Greater than 90; Globulin 2.3 g/dL (2.4-3.5); Glucose 183 mg/dL (80-115); Potassium 4.1 mmol/L (3.5-5.1); Protein, Total 6.5 g/dL (6.0-8.3); Sodium 140 mmol/L (136-145)
--- NOTE | 2019-08-17 17:31 | RAD ---
PORTABLE CHEST: History: Chest pain Comparison: 07-23-2019 FINDINGS: Heart size and mediastinum are within normal limits. Lungs show some chronic appearing change. Bones are demineralized. IMPRESSION: No active intrathoracic disease. POS: [facility]
[2019-08-17 22:27] VITALS: BMI 22.7
[2019-08-17] MEDS ORDERED: Hydroxychloroquine Sulfate 200 MG TAB PO SCH (22:30)
[2019-08-17] MEDS ORDERED: Lorazepam 0.5 MG TAB PO SCH ×2 (22:45)
[2019-08-18] MEDS: Albuterol Sulfate 2.5 mg/3 ml Neb NEB PRN ×2 (00:05→04:17)
[2019-08-18] MEDS ORDERED: hydrALAZINE 20 MG/ML VIAL SLOW IVP PRN (05:16)
[2019-08-18] MEDS ORDERED: Ondansetron PF 4 MG/2 ML Vial IVP PRN (05:16)
[2019-08-18] MEDS ORDERED: Furosemide 40 MG/4 ML VIAL SLOW IVP SCH (05:16)
[2019-08-18] MEDS ORDERED: Ondansetron ODT 4 MG TAB PO PRN (05:16)
[2019-08-18] MEDS ORDERED: Acetaminophen 325 MG TAB PO PRN (05:16)
[2019-08-18] MEDS: Levothyroxine Sodium 100 MCG TAB PO SCH (05:28)
[2019-08-18] MEDS: methylPREDNISolone Sod Succ 40 MG VIAL IVP SCH ×3 (06:18→17:39)
[2019-08-18] MEDS: Mometasone/Formoterol 120 PUFF INHALER INH SCH ×2 (08:20→18:16)
[2019-08-18] MEDS: Enoxaparin Sodium 40 MG/0.4 ML SYRINGE SC SCH (08:40)
[2019-08-18] MEDS: Hydroxychloroquine Sulfate 200 MG TAB PO SCH ×2 (08:40→20:39)
[2019-08-18] MEDS ORDERED: Lorazepam 0.5 MG TAB PO SCH ×2 (09:00→10:45)
[2019-08-18 11:27] LABS: Troponin I Less than 0.010 ng/mL (< 0.028)
--- NOTE | 2019-08-18 13:53 | HP ---
PRIMARY CARE PHYSICIAN: Dr. Velasquez. CHIEF COMPLAINT: Shortness of breath and chest tightness. HISTORY OF PRESENT ILLNESS: Ms. Lima is a pleasant 64-year-old female, who has a history of chronic respiratory failure with hypoxemia due to COPD. She had a recent hospitalization about 2 to 3 weeks ago for a COPD exacerbation. She was treated and released from the hospital and says that she was doing well. She has home health who comes out with a nurse twice a week as well as physical therapy. She was doing well until about 2 days ago when she started feeling tightness in her chest. She says that this went on all day. She also says she was having a hard time to breathe. She has not really had much of a cough, but says she was bringing up some phlegm that she says is related to the COPD. It has not changed much from before. It may be just slightly thicker. There is no color to it. She has noted some palpitations in her chest, but no xavier chest pain. No nausea. No vomiting. She does note some mild swelling of her lower extremities. As a result of her symptoms, her home health nurse suggested that she come to the ER for evaluation, which she did and she has been placed in observation for COPD exacerbation. REVIEW OF SYSTEMS: All systems are reviewed and are negative except that mentioned in the history of present illness. PAST MEDICAL HISTORY: Significant for chronic respiratory failure with hypoxemia, hypertension, COPD, hypothyroidism, and systemic lupus. PAST SURGICAL HISTORY: She has had a and tonsillectomy. ALLERGIES: TO BACTRIM, WHICH CAUSES HIVES AND CODEINE. SOCIAL HISTORY: She is a former smoker. She quit 12 years ago, but did smoke for at least 20 years. Denies any alcohol use. She is single and would like to be a full code. FAMILY HISTORY: Significant for heart disease and cancer. CURRENT MEDICATIONS: Include: 1. Plaquenil 200 mg twice a day. 2. Vitamin D2 of 50,000 units weekly. 3. Levothyroxine 100 mcg daily. 4. Ativan 0.25 mg twice daily. 5. Pravastatin 40 mg q.h.s. 6. Prednisone 5 mg daily. 7. VESIcare 5 mg daily. 8. Omnicef 300 mg twice a day. 9. Cardizem CD 120 mg daily. 10. Albuterol nebs q.i.d. as needed. 11. Symbicort 2 puffs twice a day. PHYSICAL EXAMINATION: GENERAL: She is alert and oriented. She appears to be in no acute distress. She is well developed and well nourished. VITAL SIGNS: Blood pressure was 101/60, heart rate 75, respiratory rate of 16, temperature is 97.7. HEENT: Pupils are equal, round, and reactive. Extraocular muscles are intact. Sclerae anicteric. Throat, she has dry mucous membranes. Some mild erythema. No exudates. NECK: No adenopathy. No bruits. LUNGS: She has decreased air movement. There is some mild wheezing and she has fine crackles at both bases. CARDIOVASCULAR: She has a normal S1 and S2. No S3 or S4. Heart tones are little bit distant. ABDOMEN: Soft, nontender, and nondistended. Positive for bowel sounds. No rebound. No guarding. No organomegaly. EXTREMITIES: There is no edema. NEUROLOGIC: The exam is nonfocal. LABORATORY DATA: Sodium 140, potassium 4.1, chloride is 104, CO2 is 25, BUN of 9, creatinine 0.63, glucose is 183. Troponin less than 0.010. White blood cell count 6.3, hemoglobin 12.3, hematocrit is 36, platelet count is 238. Chest x-ray by my reading, heart size is normal. She did have some flattening of her diaphragm and she had, in my opinion, some increased pulmonary vascular markings at the bases. ASSESSMENT: This is a pleasant 64-year-old female who returns to the hospital with shortness of breath. This is likely a chronic obstructive pulmonary disease exacerbation with acute on chronic respiratory failure with hypoxemia. 1. She will be placed in observation. Started on DuoNeb, steroids, and empiric antibiotics. She may have some degree of volume overload and we will get a proBNP and then give her a dose of IV Lasix. She may have some acute on chronic diastolic heart failure as well. 2. Hypertension. We will need to reconcile and restart her home medications. 3. Hypothyroidism. She appears to be clinically euthyroid. Restart her levothyroxine. 4. Systemic lupus. This does not appear to be an exacerbation and we will monitor. Job ID: [id number]
[2019-08-18] MEDS ORDERED: Sodium Chloride Nasal 15 GM TUBE EA NARE PRN (16:46)
[2019-08-18] MEDS: Lorazepam 0.5 MG TAB PO SCH (20:39)
[2019-08-18] MEDS: Pravastatin Sodium 40 MG TAB PO SCH (20:39)
--- NOTE | 2019-08-19 00:11 | CON ---
DATE OF CONSULTATION: HISTORY OF PRESENT ILLNESS: Rufina Lima is a 64-year-old female with end-stage COPD with recurrent admission to the hospital. She now presents to the ER with left-sided chest pain and heaviness with marked shortness of breath. Chest x-ray was taken, which showed that there were no acute infiltrates. She was just recently discharged on 07/28/2019. She wanted to see Dr. Jones in the office, and is yet to make an appointment to see him. She is a former smoker and quit smoking many years ago. On a good day she can barely walk 50 feet without getting markedly short of breath. PAST MEDICAL HISTORY: Lupus, COPD, hypothyroidism, hypertension. PAST SURGICAL HISTORY: Hysterectomy, tonsillectomy, hemorrhoids, . SOCIAL HISTORY: Tobacco, quit smoking 10 years ago. Alcohol, none. HOME MEDICATIONS: Includes; 1. Prednisone 5. 2. Cardizem CD 120. 3. Plaquenil 200. 4. Dulera twice a day. 5. Ativan. 6. Synthroid 100. 7. Nebulizer. 8. Pravastatin. ALLERGIES: CODEINE, SULFA. REVIEW OF SYSTEMS: Otherwise 10 point negative. PHYSICAL EXAMINATION: VITAL SIGNS: Temperature 98, pulse 91, respiratory rate 18, sats 97% on 2L. Blood pressure 118/64. GENERAL: She is slightly cushingoid. CHEST: Decreased breath sounds. No wheezing. CARDIAC: Normal S1, S2. Negative mass. LABORATORY DATA: White count 6000, lytes are normal. IMAGING DATA: Chest x-ray shows no acute infiltrate. IMPRESSION: 1. Chronic obstructive pulmonary disease, end-stage. 2. Long-term low-dose prednisone. 3. Lupus. 4. Chest pain. PLAN: I suggest trying to obtain cardiology consult. Pulmonary sommer, otherwise she appears to be at her baseline. We will notify Dr. Jones, who she would like to see. Taper steroids. PT, supportive care. Consultation note, 70 minutes, 50% direct patient care. Job ID: [id number]
[2019-08-19 05:38] LABS: #Lymphocytes 0.7 thou/uL (1.20-3.40); #Monocytes 0.7 thou/uL (0.11-0.59); #Neutrophils 12.2 thou/uL (1.40-6.50); %Eosinophils 0.2 % (0.0-10.0); %Lymphocytes 4.9 % (21.0-51.0); %Monocytes 5.2 % (0.0-10.0); %Neutrophils 89.7 % (42.0-75.0); Hemoglobin 11.3 g/dL (12.0-16.0); Mean Corpuscular HGB CONC 31.6 g/dL (32.0-36.0); Platelet Count 322 thou/uL (130-400); RBC Distribution Width 13.9 % (11.5-14.5); Red Blood Cell (RBC) Count 3.88 mill/uL (4.20-5.40); White Blood Cell (WBC) Count 13.6 thou/uL (4.8-10.8)
[2019-08-19] MEDS: Levothyroxine Sodium 100 MCG TAB PO SCH (05:39)
[2019-08-19 05:58] LABS: Anion Gap 15 mmol/L (10-20); BUN (Urea Nitrogen) 22 mg/dL (9.8-20.1); Calc. Creatinine Clearance 75 mL/min (70-130); Calcium 9.8 mg/dL (7.8-10.44); Carbon Dioxide 26 mmol/L (23-31); Chloride 103 mmol/L (98-107); Estimated GFR-MDRD 80; Glucose 153 mg/dL (80-115); Potassium 4.3 mmol/L (3.5-5.1); Sodium 140 mmol/L (136-145)
[2019-08-19] MEDS: Mometasone/Formoterol 120 PUFF INHALER INH SCH ×2 (07:43→18:09)
[2019-08-19] MEDS: predniSONE 20 MG TAB PO SCH (07:58)
[2019-08-19] MEDS: Hydroxychloroquine Sulfate 200 MG TAB PO SCH ×2 (07:59→20:29)
[2019-08-19] MEDS: Enoxaparin Sodium 40 MG/0.4 ML SYRINGE SC SCH (08:00)
[2019-08-19] MEDS: Lorazepam 0.5 MG TAB PO SCH ×2 (08:45→20:29)
[2019-08-19] MEDS ORDERED: Azithromycin 250 MG TAB PO SCH (15:00)
[2019-08-19 15:26] LABS: Troponin I Less than 0.010 ng/mL (< 0.028)
[2019-08-19] MEDS: Pravastatin Sodium 40 MG TAB PO SCH (20:29)
--- NOTE | 2019-08-19 23:20 | PDOC.HOSPP ---
- Subjective Encounter Date: 08/19/19 Encounter Time: 06:00 Subjective: overnight, developed squeezing chest pain that is worse when ambulating and relieved by rest. This afternoon, pain better. Per patient, same pain as when she develops when her COPD worsens. - Objective Vital Signs & Weight: Vital Signs (12 hours) Temp Pulse Resp BP Pulse Ox 08/19/19 20:37 93 L 08/19/19 19:33 98.2 F 87 18 111/61 93 L 08/19/19 18:06 79 16 99 08/19/19 15:00 98.5 F 85 16 108/62 95 08/19/19 13:38 85 16 95 Weight Weight 132 lb 9.6 oz I&O: 08/18/19 08/19/19 08/20/19 06:59 06:59 06:59 Intake Total 1050 2110 1450 Balance 1050 2110 1450 Result Diagrams: 08/19/19 05:25 08/19/19 05:25 Hospitalist ROS - Review of Systems Constitutional: denies: fever, chills, sweats, weakness, malaise, other Respiratory: reports: cough, shortness of breath, SOB with excertion, wheezing Cardiovascular: reports: chest pain. denies: palpitations, orthopnea, paroxysmal noc. dyspnea, edema, light headedness Gastrointestinal: reports: nausea. denies: vomiting, abdominal pain, diarrhea, constipation, melena, hematochezia Genitourinary: denies: dysuria, frequency, incontinence, hematuria, retention, other Neurological: reports: weakness. denies: numbness, incoordination, change in speech, confusion - Medication Medications: Active Medications Generic Name Dose Route Start Last Admin Trade Name Freq PRN Reason Stop Dose Admin Albuterol/Ipratropium 3 ml 08/18/19 07:00 08/19/19 18:06 Duoneb NEB 3 ml [id number] MAKENNA Administration Diltiazem HCl 120 mg 08/18/19 09:00 08/19/19 07:59 Cardizem Cd PO 120 mg DAILY MAKENNA Administration Enoxaparin Sodium 40 mg 08/18/19 09:00 08/19/19 08:00 Lovenox SC 40 mg 0900 MAKENNA Administration Hydroxychloroquine Sulfate 200 mg 08/18/19 09:00 08/19/19 20:29 Plaquenil PO 200 mg BID MAKENNA Administration Levothyroxine Sodium 100 mcg 08/18/19 06:00 08/19/19 05:39 Synthroid PO 100 mcg 0600 MAKENNA Administration Lorazepam 0.25 mg 08/18/19 21:00 08/19/19 20:29 Ativan PO 0.25 mg BID MAKENNA Administration Mometasone Furoate/Formoterol Fumar 2 puff 08/18/19 06:30 08/19/19 18:09 Dulera 200 Mcg/5 Mcg Inhaler INH 2 puff BID-RT MAKENNA Administration Pantoprazole Sodium 40 mg 08/19/19 09:00 08/19/19 07:59 Protonix PO 40 mg DAILY MAKENNA Administration Pravastatin Sodium 40 mg 08/18/19 21:00 08/19/19 20:29 Pravachol PO 40 mg HS MAKENNA Administration Prednisone 40 mg 08/19/19 08:00 08/19/19 07:58 Prednisone PO 40 mg QAM-WM MAKENNA Administration Sodium Chloride/Aloe Vera 1 gm 08/18/19 16:46 08/19/19 08:44 [place] W/Aloe Gel EA NARE 1 gm Q4H PRN Administration Dry Skin - Exam General Appearance: awake alert General - other findings: anxious Eye: PERRL Neck: no JVD Heart: II/IV Heart - other findings: aortic area murmur; regular rhythm, tachycardic Respiratory: tachypneic, wheezes Gastrointestinal: soft, non-tender, non-distended, normal bowel sounds Extremities: no edema Neurological: cranial nerve grossly intact, no weakness, no focal deficits Psychiatric: normal affect, A&O x 3 Psychiatric - other findings: anxious Hosp A/P - Plan #COPD exacerbation -continue prednisone, azithromycin, breathing treatments -prior to discharge provide education regarding inhaler use #Chest pain -will repeat troponin and EKG Transfered to inpatient service considering worsening symptoms and recent readmission. Expected stay 2 days. Full code GI PPX: no indication DVT PPx: enoxeparin
[2019-08-20] MEDS: Levothyroxine Sodium 100 MCG TAB PO SCH (05:36)
[2019-08-20] MEDS: Mometasone/Formoterol 120 PUFF INHALER INH SCH (07:53)
[2019-08-20] MEDS: Enoxaparin Sodium 40 MG/0.4 ML SYRINGE SC SCH (08:02)
[2019-08-20] MEDS: predniSONE 20 MG TAB PO SCH (08:03)
[2019-08-20] MEDS: Hydroxychloroquine Sulfate 200 MG TAB PO SCH (08:04)
[2019-08-20] MEDS ORDERED: Azithromycin 250 MG TAB PO SCH ×2 (09:00)
[2019-08-20] MEDS: Lorazepam 0.5 MG TAB PO SCH ×2 (09:15→15:16)
[2019-08-20 15:42] VITALS: BP 107/54; TEMP 98.2
--- NOTE | 2019-08-20 16:56 | EKG ---
Test Reason : Blood Pressure : / mmHG Vent. Rate : 086 BPM Atrial Rate : 086 BPM P-R Int : 132 ms QRS Dur : 100 ms QT Int : 400 ms P-R-T Axes : 073 049 058 degrees QTc Int : 478 ms Normal sinus rhythm Non-specific intra-ventricular conduction delay Abnormal ECG Confirmed by CAROL PATTON ([id number]) on 08/20/2019 4:55:46 PM Referred By: Confirmed By:CAROL PATTON
--- NOTE | 2019-08-21 04:35 | PQF ---
JASONDENISE ALL, ANDREW [id number] [facility] B- 3326 [id number] CLINICAL DOCUMENTATION CLARIFICATION FORM: POST DISCHARGE Addendum to original discharge summary date: ____ Late entry note date: __ DATE:08/21/2019 ATTN: Andrew Claudio Please exercise your independent, professional judgment in responding to the clarification form. Clinical indicators are provided on the bottom of this form for your review Please check appropriate box(s) to clarify if the following diagnosis has been ruled in or ruled out: Acute on Chronic Respiratory Failure with Hypoxemia [ ] Ruled in diagnosis [ ] Continue to treat [ ] Resolved [ ] Ruled out diagnosis [ ] Cannot rule out diagnosis [ ] Other diagnosis [ ] Unable to determine In addition, please specify: Present on Admission (POA): [ ] Yes [ ] No [ ] Unable to determine For continuity of documentation, please document condition throughout progress notes and discharge summary. Thank You. CLINICAL INDICATORS - SIGNS / SYMPTOMS / LABS Vital signs 08/17- BP 107/63, Pulse 95, Resp 24, Temp 98.2, O2 sat 95% H&P p1 08/17 Dr Vu She was doing well until about 2 days ago when she started feeling tightness in her chest H&P p1 08/17 Dr Vu She also says she was having hard time breathe. She has not really had much of cough, but says she was bringing up some phlegm that she says is resulted to the COPD H&P p2 08/17 Dr Vu Physician Examination: Lungs She has decreased air movement. There is some mild wheezing and she has fine crackles at both bases H&P p2 08/17 Dr Vu return to hospital with SOB. This is likely a chronic obstructive pulmonary disease exacerbation with acute on chronic respiratory failure with hypoxemia RISK FACTORS H&P p1 08/17 64-year old female H&P p1 08/17 History of Chronic respiratory faliure with hypoxemia due to COPD H&P p1 08/17 former smoker H&P p1 08/17 SLE H&P p1 08/17 Hypothyroidism TREATMENTS AUG 30 Ventolin 5mg neb AUG 30 Duoneb 3ml Neb AUG 29 IV Solu-Medrol 40 mg AUG 30 Prednisone 40mg po AUG 30 Azithromycin 500mg po Respiratory Panel 08/17 Oxygen 2L Chest x-day order 08/17 (This form is maintained as a part of the permanent medical record) 2014 [employer]. All Rights Reserved [email or web address]
--- NOTE | 2019-08-21 04:39 | PQF ---
JASONDENISE ALL, ANDREW [id number] [facility] B- 3326 [id number] CLINICAL DOCUMENTATION CLARIFICATION FORM: POST DISCHARGE Addendum to original discharge summary date: ____ Late entry note date: __ DATE:08/21/2019 ATTN: Andrew Claudio Please exercise your independent, professional judgment in responding to the clarification form. Clinical indicators are provided on the bottom of this form for your review Please check appropriate box(s) to clarify if the following diagnosis has been ruled in or ruled out: Acute on Chronic Diastolic Heart Failure [ ] Ruled in diagnosis [ ] Continue to treat [ ] Resolved [ ] Ruled out diagnosis [ ] Cannot rule out diagnosis [ ] Other diagnosis [ ] Unable to determine In addition, please specify: Present on Admission (POA): [ ] Yes [ ] No [ ] Unable to determine For continuity of documentation, please document condition throughout progress notes and discharge summary. Thank You. CLINICAL INDICATORS - SIGNS / SYMPTOMS / LABS Vital signs 08/17- BP 107/63, Pulse 95, Resp 24, Temp 98.2, O2 sat 95% H&P p1 08/17 Dr Vu She was doing well until about 2 days ago when she started feeling tightness in her chest H&P p1 08/17 Dr Vu She also says she was having hard time breathe. She has not really had much of cough, but says she was bringing up some phlegm that she says is related to the COPD H&P p2 08/17 Dr Vu Physician Examination: Lungs She has decreased air movement. There is some mild wheezing and she has fine crackles at both bases H&P p2 08/17 Dr Vu return to hospital with SOB. This is likely a chronic obstructive pulmonary disease exacerbation with acute on chronic respiratory failure with hypoxemia H&P p2 08/17 Dr Vu She may have some degree of volume overload and we will get a proBNP and dose of IV lasix. She may have some acute on chronic diastolic heart failure as well RISK FACTORS H&P p1 08/17 64-year old female H&P p1 08/17 History of Chronic respiratory failure with hypoxemia due to COPD H&P p1 08/17 former smoker H&P p1 08/17 SLE H&P p1 08/17 Hypothyroidism H&P p1 08/17 HTN TREATMENTS AUG 30 Cardizem 120mg po AUG 30 IV Lasix 40mg AUG 29 IV Solu-Medrol 40 mg AUG 30 Prednisone 40mg po Respiratory Panel 08/17 Oxygen 2L Chest x-day order 08/17 (This form is maintained as a part of the permanent medical record) 2014 [employer]. All Rights Reserved [email or web address]
--- NOTE | 2019-08-21 10:11 | DIS ---
DATE OF ADMISSION: 08/17/2019 DATE OF DISCHARGE: 08/20/2019 HOSPITAL COURSE: Ms. Lima is a 64-year-old female with a medical history of COPD, presented for shortness of breath. She had shortness of breath starting the morning of presentation that was not relieved by inhaler treatment, so she came to the ED. She was diagnosed with COPD exacerbation and was treated with prednisone, azithromycin and breathing treatments. She improved overnight. However, on the second day of hospitalization, she developed substernal chest pain. Cardiac workup was commenced and was negative. Treatment for COPD exacerbation continued and she improved overnight and was discharged home after elaborate education regarding inhaler use technique, which appeared to be suboptimal based on the patient's description. She was discharged home feeling well and hemodynamically stable. Vitals were unremarkable. PHYSICAL EXAMINATION: GENERAL APPEARANCE: Awake and alert. Appeared somewhat anxious regarding her condition the day prior to discharge. However, today, appears comfortable. NECK: No JVD. HEART: 2/4 decrescendo systolic murmur in the aortic area. Regular rhythm and rate. RESPIRATORY: Clear to auscultation bilaterally. No wheezes, no rales, no rhonchi, and no tachypnea. EXTREMITIES: No edema. NEUROLOGICAL: Cranial nerves grossly intact. No weakness. No focal deficits. PSYCHIATRIC: Normal affect. Alert and oriented x3. ASSESSMENT AND PLAN: Ms. Lima is a 64-year-old female, who presented with chronic obstructive pulmonary disease exacerbation. She was treated with prednisone, azithromycin, breathing treatments, and was discharged home to complete treatments with followup appointments to her primary care physician. During the hospital stay, she developed chest pain that was per the patient, comparable to the pressure she feels when she has trouble breathing due to chronic obstructive pulmonary disease exacerbation. However, cardiac workup was initiated and was negative. She was discharged with followup appointments to her primary care physician within three days. Job ID: [id number]
== END 2019-08-20 17:51 | disposition home or self-care (01) | DRG 191 ==
LOC: ERS 16:04 → OBSVTOIN 20:36 → SURG B 20:36
PROVIDERS: ADMIT Emergency Medicine; ATTEND Internal Medicine
DX: J44.1 Chronic obstructive pulmonary disease with (acute) exacerbation (principal); J96.11 Chronic respiratory failure with hypoxia; E03.9 Hypothyroidism, unspecified; M32.9 Systemic lupus erythematosus, unspecified; I10 Essential (primary) hypertension; Z79.899 Other long term (current) drug therapy; Z79.51 Long term (current) use of inhaled steroids; Z79.52 Long term (current) use of systemic steroids; Z79.890 Hormone replacement therapy; Z87.891 Personal history of nicotine dependence; Z88.1 Allergy status to other antibiotic agents; Z88.8 Allergy status to other drugs, medicaments and biological substances
CPT/HCPCS: 36415; 71045; 80048; 80053; 84484; 85025; 93005; 93010; 94640; 96365; J1650; J1940; J2920; J3475; J7512; J7611; J7620

== ENCOUNTER 2019-08-25 10:33 | Outpatient (CLI) | payer MEDICARE, MEDICAID ==
--- NOTE | 2019-08-25 10:48 | RAD ---
EXAM: Chest 2 views: HISTORY: Dyspnea COMPARISON: 01/03/2009 FINDINGS: There is a normal-sized cardiomediastinal silhouette. There is no evidence of consolidation, mass, or pleural effusion. Degenerative changes are seen in the spine. IMPRESSION: No evidence of acute cardiopulmonary disease
== END 2019-08-25 10:34 | disposition home or self-care (01) ==
LOC: RAD 10:33
PROVIDERS: ATTEND Internal Medicine Critical Care Medicine
DX: R06.00 Dyspnea, unspecified (principal)
CPT/HCPCS: 71046

== ENCOUNTER 2019-11-27 09:10 | Outpatient (CLI) | payer MEDICARE, OTHER ==
--- NOTE | 2019-11-27 12:00 | BD ---
DEXA BONE DENSITY SCAN: DATE: 11/27/2019. COMPARISON: None. HISTORY: Postmenopausal female undergoing screening for osteoporosis. FINDINGS: Lumbar Spine: BMD (g/cm2) L1 0.673 T-Score: -2.9 L2 0.683 T-Score: -3.1 L3 0.648 T-Score: -4.0 L4 0.603 T-Score: -4.2 L1-L4 0.650 T-Score: -3.6 Femoral Neck: 0.480 T-Score: -3.3 Total Femur: 0.648 T-Score: -2.4 The FRAX-WHO fracture risk assessment tool is not reported as T-scores are at or below -2.5. Impression: Diffuse lumbar spine and femoral neck osteoporosis correlating with a high associated risk for fractu re. POS: TIA
== END 2019-11-27 09:11 | disposition home or self-care (01) ==
LOC: BICMAMMO 09:10
PROVIDERS: ATTEND Internal Medicine
DX: M81.0 Age-related osteoporosis without current pathological fracture (principal)
CPT/HCPCS: 77080

== ENCOUNTER 2020-03-30 08:07 | Outpatient (CLI) | payer MEDICARE, OTHER ==
--- NOTE | 2020-03-30 09:55 | RAD ---
TWO VIEW CHEST: Indications: Dyspnea Comparison: 08-25-2019 FINDINGS: Lungs show no evidence of infiltrate or effusion. Interstitial markings are mildly prominent but stab le. Heart and mediastinum unremarkable. No acute interval change. IMPRESSION: Stable chest. POS: AGW
== END 2020-03-30 08:08 | disposition home or self-care (01) ==
LOC: BICRAD 08:07
PROVIDERS: ATTEND Internal Medicine Critical Care Medicine
DX: R06.00 Dyspnea, unspecified (principal)
CPT/HCPCS: 71046

== ENCOUNTER 2020-08-09 23:46 | Emergency (ER) | payer MEDICARE, OTHER ==
[2020-08-10] MEDS ORDERED: Morphine 4 MG/ML VIAL ONE (00:14)
[2020-08-10] MEDS ORDERED: Ondansetron PF 4 MG/2 ML Vial ONE (00:15)
[2020-08-10 00:30] LABS: #Eosinphils 0.1 thou/uL (0.0-0.7); #Lymphocytes 0.5 thou/uL (1.20-3.40); #Monocytes 0.8 thou/uL (0.11-0.59); #Neutrophils 10.7 thou/uL (1.40-6.50); %Basophils 0.1 % (0.0-1.0); %Eosinophils 0.7 % (0.0-10.0); %Monocytes 6.4 % (0.0-10.0); %Neutrophils 88.7 % (42.0-75.0); Hemoglobin 13.7 g/dL (12.0-16.0); Mean Corpuscular HGB CONC 33.3 g/dL (32.0-36.0); Mean Corpuscular Hemoglobin 30.1 pg (27.0-31.0); Mean Corpuscular Volume 90.4 fL (78.0-98.0); Mean Platelet Volume 6.7 fL (7.4-10.4); Platelet Count 214 thou/uL (130-400); RBC Distribution Width 12.4 % (11.5-14.5); Red Blood Cell (RBC) Count 4.57 mill/uL (4.20-5.40); White Blood Cell (WBC) Count 12.1 thou/uL (4.8-10.8)
[2020-08-10 00:37] LABS: PTT 26.1 sec (22.9-36.1); Prothrombin Time 13.3 sec (12.0-14.7)
[2020-08-10 00:39] LABS: D-Dimer Test 0.37 *mcg/mL (0.27-0.43)
[2020-08-10 00:51] LABS: ALT (SGPT) 13 U/L (8-55); AST (SGOT) 19 U/L (5-34); Albumin 3.9 g/dL (3.4-4.8); Alkaline Phosphatase 70 U/L (40-110); Anion Gap 13 mmol/L (10-20); BUN (Urea Nitrogen) 26 mg/dL (9.8-20.1); Bilirubin, Total 0.7 mg/dL (0.2-1.2); Calc. Creatinine Clearance 0 mL/min (70-130); Calcium 8.5 mg/dL (7.8-10.44); Carbon Dioxide 24 mmol/L (23-31); Chloride 106 mmol/L (98-107); Globulin 2.7 g/dL (2.4-3.5); Glucose 115 mg/dL (80-115); Lipase 20 U/L (8-78); Potassium 3.9 mmol/L (3.5-5.1); Protein, Total 6.6 g/dL (5.8-8.1); Sodium 139 mmol/L (136-145)
[2020-08-10 01:39] LABS: Bacteria/HPF None Seen HPF (None Seen); Bilirubin Negative (Negative); Blood, Urine Trace (Negative); Clarity Clear (Clear); Glucose, Urine (Dipstick) Normal (Negative); Ketone, Urine Negative (Negative); Leukocyte Negative Leu/uL (Negative); Nitrite Negative (Negative); Protein, Urine (Dipstick) Negative (Neg-Trace); Squamous Epithelial 0-3 HPF (0-3); Urobilinogen Normal mg/dL (Less than 2); WBC/HPF 0-3 HPF (0-3)
--- NOTE | 2020-08-10 09:26 | CT ---
PRELIMINARY REPORT/[facility]/EMERGENCY AFTER HOURS PROCEDURE: Receipt of this report by the clinical staff was confirmed with ADAM MILLER MD by Willow Lujan on Aug 10, 2020 01:51:00 DRAINAGE ENGINEER. Addendum electronically signed by Elizabeth Lujan on August 10 1:52:[address] angiography abdomen and pelvis Comparison: None Indication: ATE [employer] [place] THIS AFTERNOON AND HAS BEGUN VOMITING AFTER EATING LOOSE BOWEL MOVEMENT S REPORTED NEW ONSET AFIB - NO HX REPORTED BY PATIENT Findings: Mild bronchial wall thickening. Normal gallbladder. No biliary ductal dilatation. No hydron ephrosis or symptomatic urinary calculus. Normal gallbladder. No biliary ductal dilatation. Gastric d istention. Possible mild wall thickening of the distal stomach. No surrounding edema. Fatty changes i n the wall the colon. No bowel obstruction, free fluid, free air, abscess or diverticulitis. The appe ndix is not identified. The urinary bladder is not evaluated. Osteopenia. No acute fracture or disloc ation. Impression: Findings suspicious for a mild distal gastritis. Mild gastric distention. Fatty changes i n the wall the colon can be seen with chronic inflammatory bowel disease. No significant obstruction or evidence of perforation. No acute vascular abnormality, high-grade stenosis or occlusion identifie d. There are no precontrast images. Small hyperdense focus in the gastric pylorus or distal gastric a ntrum is indeterminate. Gastrointestinal bleeding cannot be excluded on this study. Consider nuclear medicine gastrointestinal bleeding study if indicated. ELECTRONICALLY SIGNED BY: Wolfgang Titus MD Aug 10, 2020 1:44:07 AM DRAINAGE ENGINEER FINAL REPORT CT ANGIOGRAM OF THE ABDOMEN: HISTORY: Right upper quadrant pain. TECHNIQUE: CT angiogram of the abdomen was performed in the axial plane. Three-dimensional reformatted images a re submitted for interpretation. FINDINGS: Chronic change of the lung bases. Normal heart size. No abnormality with regards to the solid organs. No evidence of obstructive uropathy. Visualized alimentary canal does not demonstrate any evidence of obstruction. Normal ileocecal junct ion. Appendix is not appreciated. No inflammation of the cecal apex. There is mild prominence of t he mucosa involving the distal gastric mucosa. Correlate for possible mild gastritis. No lytic or blastic lesion in the osseous structures. Appropriate enhancement and luminal diameter of the visualized aorta, celiac artery origin, superior mesenteric artery origin, solitary left and right renal artery, inferior mesenteric artery, aortic bi furcation, and visualized iliac arteries. IMPRESSION: 1. This report is in agreement with the preliminary report by [facility]. No evidence of abno rmality with regards to the aorta. 2. Questionable mild inflammatory change involving the distal gastric mucosa. POS: PPP
[2020-08-10] MEDS ORDERED: Iopamidol 370 76% 100 ML VIAL ONE (14:13)
== END 2020-08-10 04:12 | disposition home or self-care (01) ==
LOC: ERS 23:46
DX: K29.70 Gastritis, unspecified, without bleeding (principal); Z79.899 Other long term (current) drug therapy; Z79.52 Long term (current) use of systemic steroids; J43.9 Emphysema, unspecified; E03.9 Hypothyroidism, unspecified; E78.5 Hyperlipidemia, unspecified; I10 Essential (primary) hypertension; Z87.891 Personal history of nicotine dependence
CPT/HCPCS: 36415; 74175; 80053; 81003; 81015; 83605; 83690; 85025; 85379; 85610; 85730; 93005; 96374; 96375; J2270; J2405; Q9967

== ENCOUNTER 2020-10-26 09:41 | Outpatient (CLI) | payer MEDICARE | END 2020-10-26 09:42 | disposition home or self-care (01) | LOC: BICRAD 09:41 | PROVIDERS: ATTEND Internal Medicine Critical Care Medicine | DX: R06.00 Dyspnea, unspecified (principal) | CPT/HCPCS: 71046 ==

== ENCOUNTER 2020-12-07 13:38 | Outpatient (CLI) | payer MEDICARE | END 2020-12-07 13:39 | disposition home or self-care (01) | LOC: BICMAMMO 13:38 | PROVIDERS: ATTEND Internal Medicine Rheumatology | DX: M81.0 Age-related osteoporosis without current pathological fracture (principal) | CPT/HCPCS: 77080 ==

== ENCOUNTER 2021-02-16 09:43 | Outpatient (CLI) | payer MEDICARE, OTHER | END 2021-02-16 09:44 | disposition home or self-care (01) | LOC: BICMAMMO 09:43 | PROVIDERS: ATTEND Family Medicine | DX: Z12.31 Encounter for screening mammogram for malignant neoplasm of breast (principal); Z80.3 Family history of malignant neoplasm of breast | CPT/HCPCS: 77063; 77067 ==

== ENCOUNTER 2022-12-08 23:07 | Observation (INO) | payer OTHER ==
[2022-12-09 01:33] VITALS: BMI 23.3
[2022-12-09] MEDS ORDERED: Ondansetron PF 4 MG/2 ML Vial IVP PRN (01:45)
[2022-12-09] MEDS ORDERED: Ketorolac Tromethamine 30 MG/ML VIAL IVP PRN (01:54)
[2022-12-09] MEDS: Dextrose 5%-Lactated Ringers 1,000 ML IV SCH ×2 (02:21→17:00)
[2022-12-09] MEDS ORDERED: Ipratropium/Albuterol 3 ML NEB NEB PRN ×2 (02:30→02:37)
[2022-12-09] MEDS ORDERED: hydrALAZINE 20 MG/ML VIAL SLOW IVP PRN (02:30)
[2022-12-09] MEDS: metroNIDAZOLE 500 MG in Premix Bag 1 BAG IVPB SCH ×3 (05:28→21:13)
[2022-12-09] MEDS ORDERED: Promethazine HCl 25 MG in Sodium Chloride 0.9% 50 ML IVPB SCH (05:30)
[2022-12-09] MEDS: Mometasone 200 MCG/Formoterol 5 MCG 120 PUFF INHALER INH SCH ×2 (06:51→18:16)
[2022-12-09 08:22] LABS: #Basophils 0.1 thou/uL (0.0-0.2); #Monocytes 1.5 thou/uL (0.11-0.59); #Neutrophils 12.1 thou/uL (1.40-6.50); %Basophils 0.3 % (0.0-1.0); %Eosinophils 0.1 % (0.0-10.0); %Lymphocytes 6.3 % (21.0-51.0); %Neutrophils 82.3 % (42.0-75.0); Hemoglobin 14.6 g/dL (12.0-16.0); Mean Corpuscular Hemoglobin 29.3 pg (27.0-31.0); Mean Corpuscular Volume 94.4 fl (78.0-98.0); Mean Platelet Volume 9.7 fL (7.4-10.4); Platelet Count 203 10x3/uL (130-400); Red Blood Cell (RBC) Count 4.99 mill/uL (4.20-5.40); White Blood Cell (WBC) Count 14.7 10x3/uL (4.8-10.8)
[2022-12-09 08:37] LABS: ALT (SGPT) 23 U/L (8-55); AST (SGOT) 16 U/L (5-34); Albumin 3.6 g/dL (3.4-4.8); Alkaline Phosphatase 61 U/L (40-110); Anion Gap 14 mmol/L (10-20); BUN (Urea Nitrogen) 19 mg/dL (9.8-20.1); Bilirubin, Total 0.9 mg/dL (0.2-1.2); Calc. Creatinine Clearance 79 mL/min (70-130); Calcium 8.6 mg/dL (7.8-10.44); Carbon Dioxide 21 mmol/L (23-31); Chloride 103 mmol/L (98-107); Estimated GFR 96; Globulin 2.3 g/dL (2.4-3.5); Glucose 91 mg/dL (80-115); Magnesium 2.3 mg/dL (1.6-2.6); Potassium 3.7 mmol/L (3.5-5.1); Protein, Total 5.9 g/dL (5.8-8.1); Sodium 134 mmol/L (136-145)
[2022-12-09] MEDS: Pantoprazole 40 MG VIAL IVP SCH (08:43)
[2022-12-09 09:04] LABS: Phosphorus 2.9 mg/dL (2.3-4.7)
[2022-12-10] MEDS: metroNIDAZOLE 500 MG in Premix Bag 1 BAG IVPB SCH (05:59)
[2022-12-10 07:04] LABS: #Eosinphils 0.1 thou/uL (0.0-0.7); #Monocytes 1.5 thou/uL (0.11-0.59); %Basophils 0.1 % (0.0-1.0); %Eosinophils 0.3 % (0.0-10.0); %Lymphocytes 14.3 % (21.0-51.0); %Monocytes 10.3 % (0.0-10.0); %Neutrophils 74.2 % (42.0-75.0); Hemoglobin 13.3 g/dL (12.0-16.0); Mean Corpuscular HGB CONC 31.2 g/dL (32.0-36.0); Mean Corpuscular Volume 92.8 fl (78.0-98.0); Mean Platelet Volume 9.5 fL (7.4-10.4); Platelet Count 235 10x3/uL (130-400); RBC Distribution Width 14.1 % (11.5-14.5); Red Blood Cell (RBC) Count 4.59 mill/uL (4.20-5.40); White Blood Cell (WBC) Count 14.8 10x3/uL (4.8-10.8)
[2022-12-10] MEDS: Mometasone 200 MCG/Formoterol 5 MCG 120 PUFF INHALER INH SCH (07:23)
[2022-12-10 07:26] LABS: ALT (SGPT) 15 U/L (8-55); AST (SGOT) 10 U/L (5-34); Albumin 3.3 g/dL (3.4-4.8); Alkaline Phosphatase 48 U/L (40-110); Anion Gap 10 mmol/L (10-20); BUN (Urea Nitrogen) 12 mg/dL (9.8-20.1); Bilirubin, Total 0.8 mg/dL (0.2-1.2); Calc. Creatinine Clearance 67 mL/min (70-130); Calcium 8.9 mg/dL (7.8-10.44); Carbon Dioxide 29 mmol/L (23-31); Chloride 106 mmol/L (98-107); Estimated GFR 79; Globulin 2.1 g/dL (2.4-3.5); Glucose 73 mg/dL (80-115); Magnesium 2.2 mg/dL (1.6-2.6); Phosphorus 2.5 mg/dL (2.3-4.7); Potassium 4.1 mmol/L (3.5-5.1); Protein, Total 5.4 g/dL (5.8-8.1); Sodium 141 mmol/L (136-145)
[2022-12-10] MEDS: Pantoprazole 40 MG VIAL IVP SCH (09:03)
[2022-12-10] MEDS: Dextrose 5%-Lactated Ringers 1,000 ML IV SCH (11:08)
[2022-12-10 13:52] VITALS: BP 113/69; TEMP 98.5
[2022-12-10] MEDS ORDERED: metroNIDAZOLE 500 MG TAB PO SCH (15:00)
[2022-12-10] MEDS ORDERED: Ciprofloxacin 500 MG TAB PO SCH (20:00)
== END 2022-12-10 15:47 | disposition home or self-care (01) ==
LOC: T4-A 23:07 → INTOOBSV 23:07 → UNDOADMOB 23:07 → T4-A 12-09 01:45
PROVIDERS: ADMIT Family Medicine; ATTEND Family Medicine
DX: K52.9 Noninfective gastroenteritis and colitis, unspecified (principal); K56.7 Ileus, unspecified; D72.829 Elevated white blood cell count, unspecified; I10 Essential (primary) hypertension; E78.5 Hyperlipidemia, unspecified; J44.9 Chronic obstructive pulmonary disease, unspecified; E03.9 Hypothyroidism, unspecified; M32.9 Systemic lupus erythematosus, unspecified; K21.9 Gastro-esophageal reflux disease without esophagitis; N20.0 Calculus of kidney; N39.0 Urinary tract infection, site not specified; N32.81 Overactive bladder; F41.0 Panic disorder [episodic paroxysmal anxiety]; M81.0 Age-related osteoporosis without current pathological fracture; Z87.891 Personal history of nicotine dependence; Z79.890 Hormone replacement therapy; Z79.899 Other long term (current) drug therapy; Z88.2 Allergy status to sulfonamides; Z88.6 Allergy status to analgesic agent; Z88.1 Allergy status to other antibiotic agents
CPT/HCPCS: 36415; 80053; 83735; 84100; 85025; 96365; 96366; 96367; 96372; 96375; 96376; C9113; G0378; J0744; J1650; J2405; J2550

== ENCOUNTER 2023-02-10 11:05 | Emergency (ER) | payer OTHER, MEDICAID ==
[~2023-02-10 11:05] MED LIST changes: -ISOVUE-370 76%-LOCM 1 ML ONE; +Iopamidol-370 76% 500 ML MDV (1 ML CHARGE) ONE
[2023-02-10 11:44] LABS: #Basophils 0.1 thou/uL (0.0-0.2); #Eosinphils 0.1 thou/uL (0.0-0.7); #Monocytes 0.7 thou/uL (0.11-0.59); #Neutrophils 6.1 thou/uL (1.40-6.50); %Basophils 0.7 % (0.0-1.0); %Eosinophils 1.2 % (0.0-10.0); %Monocytes 8.6 % (0.0-10.0); %Neutrophils 73.3 % (42.0-75.0); Hematocrit 40.8 % (36.0-47.0); Hemoglobin 12.9 g/dL (12.0-16.0); Mean Corpuscular HGB CONC 31.6 g/dL (32.0-36.0); Mean Corpuscular Hemoglobin 28.9 pg (27.0-31.0); Mean Corpuscular Volume 91.5 fl (78.0-98.0); Mean Platelet Volume 9.2 fL (7.4-10.4); Platelet Count 266 10x3/uL (130-400); RBC Distribution Width 13.7 % (11.5-14.5); Red Blood Cell (RBC) Count 4.46 mill/uL (4.20-5.40); White Blood Cell (WBC) Count 8.3 10x3/uL (4.8-10.8)
[2023-02-10 11:52] LABS: Bacteria/HPF None Seen HPF (None Seen); Bilirubin Negative (Negative); Blood, Urine Negative (Negative); CAUTI Indications for Culture Alt mental st,lethar; Clarity Clear (Clear); Glucose, Urine (Dipstick) Normal (Negative); Ketone, Urine Negative (Negative); Leukocyte Negative Leu/uL (Negative); Nitrite Negative (Negative); Protein, Urine (Dipstick) Negative (Neg-Trace); RBC/HPF 0-3 HPF (0-3); Specific Gravity, Urine 1.003 (1.002-1.036); Squamous Epithelial 0-3 HPF (0-3); Urobilinogen Normal mg/dL (Less than 2); WBC/HPF 0-3 HPF (0-3)
[2023-02-10 12:00] LABS: Urine Culture Reflex No No
[2023-02-10 12:06] LABS: ALT (SGPT) 14 U/L (8-55); AST (SGOT) 22 U/L (5-34); Albumin 4.2 g/dL (3.4-4.8); Alkaline Phosphatase 89 U/L (40-110); Anion Gap 14 mmol/L (10-20); BUN (Urea Nitrogen) 17 mg/dL (9.8-20.1); Bilirubin, Total 0.6 mg/dL (0.2-1.2); Calc. Creatinine Clearance 0 mL/min (70-130); Calcium 9.4 mg/dL (7.8-10.44); Carbon Dioxide 22 mmol/L (23-31); Chloride 109 mmol/L (98-107); Estimated GFR 79; Globulin 2.4 g/dL (2.4-3.5); Glucose 81 mg/dL (80-115); Magnesium 2.1 mg/dL (1.6-2.6); Potassium 4.4 mmol/L (3.5-5.1); Protein, Total 6.6 g/dL (5.8-8.1); Sodium 141 mmol/L (136-145)
[2023-02-10 12:09] LABS: Troponin I Less than 0.010 ng/mL (< 0.028)
[2023-02-10] MEDS ORDERED: Ipratropium/Albuterol 3 ML NEB ONE (13:45)
[2023-02-10] MEDS ORDERED: Albuterol 2.5 MG/0.5 ML NEB ONE (13:45)
== END 2023-02-10 14:15 | disposition home or self-care (01) ==
LOC: ERS 11:05
DX: R06.02 Shortness of breath (principal); R53.1 Weakness; J44.9 Chronic obstructive pulmonary disease, unspecified; E03.9 Hypothyroidism, unspecified; I10 Essential (primary) hypertension; E78.5 Hyperlipidemia, unspecified; Z79.899 Other long term (current) drug therapy; Z79.51 Long term (current) use of inhaled steroids
CPT/HCPCS: 36415; 71045; 71275; 80053; 81001; 83605; 83735; 84484; 85025; 87040; 93005; J7611; J7620; Q9967

== ENCOUNTER 2023-08-05 08:02 | Outpatient (CLI) | payer OTHER, MEDICAID | END 2023-08-05 08:03 | disposition home or self-care (01) | LOC: BICMRI 08:02 | PROVIDERS: ATTEND Orthopaedic Surgery | DX: M75.102 Unspecified rotator cuff tear or rupture of left shoulder, not specified as traumatic (principal); M19.012 Primary osteoarthritis, left shoulder ==

== ENCOUNTER 2023-11-26 08:34 | Outpatient (CLI) | payer OTHER, MEDICAID | END 2023-11-26 08:35 | disposition home or self-care (01) | LOC: RAD 08:34 | PROVIDERS: ATTEND Internal Medicine Critical Care Medicine | DX: R06.00 Dyspnea, unspecified (principal); I70.0 Atherosclerosis of aorta; R91.8 Other nonspecific abnormal finding of lung field | CPT/HCPCS: 71046 ==

== ENCOUNTER 2024-08-04 14:42 | Observation (INO) | payer OTHER ==
[2024-08-04] MEDS ORDERED: Aspirin Chewable 81 MG TAB ONE (15:34)
[2024-08-04 16:35] LABS: #Basophils 0.03 10x3/uL (0.0-0.2); #Eosinophils Less than 0.03 10x3/uL (0.0-0.7); %Basophils 0.3 % (0.0-1.0); %Eosinophils 0.2 % (0.0-10.0); %Lymphocytes 17.7 % (21.0-51.0); %Monocytes 8.8 % (0.0-10.0); %Neutrophils 72.5 % (42.0-75.0); Hematocrit 42.5 % (36.0-47.0); Hemoglobin 13.9 g/dL (12.0-16.0); Mean Corpuscular HGB CONC 32.7 g/dL (32.0-36.0); Mean Corpuscular Hemoglobin 28.7 pg (27.0-31.0); Mean Corpuscular Volume 87.6 fL (78.0-98.0); Platelet Count 311 10x3/uL (130-400); RBC Distribution Width 13.4 % (11.5-14.5); Red Blood Cell (RBC) Count 4.85 mill/uL (4.20-5.40)
[2024-08-04 16:57] LABS: ALT (SGPT) 12 U/L (Less than 34); AST (SGOT) 16 U/L (11-34); Albumin 3.9 g/dL (3.1-4.5); Alkaline Phosphatase 71 U/L (40-110); Anion Gap 14 mmol/L (10-20); BUN (Urea Nitrogen) 25 mg/dL (9.8-20.1); Bilirubin, Total 0.4 mg/dL (0.3-1.2); Calc. Creatinine Clearance 0 mL/min (70-130); Calcium 9.2 mg/dL (7.8-10.44); Carbon Dioxide 27 mmol/L (23-31); Chloride 103 mmol/L (98-107); Estimated GFR 89; Globulin 3.1 g/dL (2.4-3.5); Glucose 100 mg/dL (80-115); Sodium 140 mmol/L (136-145)
[2024-08-04 17:00] LABS: Troponin I Less than 0.010 ng/mL (< 0.028)
[2024-08-04] MEDS ORDERED: Acetaminophen 325 MG TAB PO PRN (18:05)
[2024-08-04] MEDS ORDERED: Ondansetron PF 4 MG/2 ML Vial IVP PRN (18:05)
[2024-08-04] MEDS ORDERED: Nitroglycerin 0.4 MG TAB (25 Tab Bottle) SL PRN (18:09)
[2024-08-04] MEDS ORDERED: dilTIAZem 25 MG/5 ML VIAL ONE (18:20)
[2024-08-04] MEDS ORDERED: hydrALAZINE 20 MG/ML VIAL SLOW IVP PRN (18:21)
[2024-08-04 21:34] LABS: Magnesium 2.4 mg/dL (1.6-2.6)
[2024-08-04 21:39] LABS: Troponin I Less than 0.010 ng/mL (< 0.028)
[2024-08-04] MEDS: Heparin 5,000 UNITS/ML VIAL SC SCH (22:33)
[2024-08-04 22:50] VITALS: BMI 23.1
[2024-08-04] MEDS: Melatonin 3 MG TAB PO SCH (23:19)
[2024-08-05] MEDS ORDERED: traZODone HCl 50 MG TAB PO PRN ×2 (00:01→09:21)
[2024-08-05 01:23] LABS: Troponin I Less than 0.010 ng/mL (< 0.028)
[2024-08-05 04:24] LABS: #Basophils 0.03 10x3/uL (0.0-0.2); %Basophils 0.3 % (0.0-1.0); %Eosinophils 0.4 % (0.0-10.0); %Monocytes 9.5 % (0.0-10.0); %Neutrophils 70.2 % (42.0-75.0); Hemoglobin 13.1 g/dL (12.0-16.0); Mean Corpuscular Hemoglobin 28.4 pg (27.0-31.0); Mean Corpuscular Volume 88.7 fL (78.0-98.0); Platelet Count 303 10x3/uL (130-400); RBC Distribution Width 13.5 % (11.5-14.5); Red Blood Cell (RBC) Count 4.62 mill/uL (4.20-5.40)
[2024-08-05 04:39] LABS: Anion Gap 12 mmol/L (10-20); BUN (Urea Nitrogen) 33 mg/dL (9.8-20.1); Calc. Creatinine Clearance 72 mL/min (70-130); Calcium 9.5 mg/dL (7.8-10.44); Carbon Dioxide 27 mmol/L (23-31); Chloride 105 mmol/L (98-107); Estimated GFR 93; Glucose 120 mg/dL (80-115); Potassium 4.3 mmol/L (3.5-5.1); Sodium 140 mmol/L (136-145)
[2024-08-05] MEDS: Amlodipine 5 MG TAB PO SCH (08:34)
[2024-08-05] MEDS: Aspirin 81 mg Enteric Coated Tablet PO SCH (08:34)
[2024-08-05] MEDS ORDERED: Regadenoson 0.4 MG/5 ML SYRINGE ONE (09:35)
[2024-08-05 11:30] VITALS: TEMP 97.9
[2024-08-05] MEDS: Hydroxychloroquine Sulfate 200 MG TAB PO SCH (11:39)
[2024-08-05] MEDS: Levothyroxine Sodium 75 MCG TAB PO SCH (11:40)
[2024-08-05] MEDS: Pantoprazole 40 MG DR.TAB PO SCH (11:41)
[2024-08-05] MEDS: ALPRAZolam 0.5 MG TAB PO PRN (11:43)
[2024-08-05 15:37] VITALS: BP 114/60
[2024-08-05] MEDS ORDERED: Mometasone 200 MCG/Formoterol 5 MCG 120 PUFF INHALER INH SCH (18:30)
[2024-08-05] MEDS ORDERED: DOXEPIN HCL 3 MG PO SCH (21:00)
[2024-08-05] MEDS ORDERED: Atorvastatin Calcium 10 MG TAB PO SCH (21:00)
[2024-08-05] MEDS ORDERED: Trospium 20 MG TAB PO SCH (21:00)
[2024-08-06] MEDS ORDERED: Levothyroxine Sodium 75 MCG TAB PO SCH (06:00)
[2024-08-06] MEDS ORDERED: Hydroxychloroquine Sulfate 200 MG TAB PO SCH (09:00)
== END 2024-08-05 17:50 | disposition home or self-care (01) ==
LOC: ERS 14:42 → 2NO 17:45
PROVIDERS: ADMIT Family Medicine; ATTEND Internal Medicine
DX: R07.9 Chest pain, unspecified (principal); I16.0 Hypertensive urgency; I10 Essential (primary) hypertension; E03.9 Hypothyroidism, unspecified; J44.9 Chronic obstructive pulmonary disease, unspecified; M32.9 Systemic lupus erythematosus, unspecified; Z87.59 Personal history of other complications of pregnancy, childbirth and the puerperium; Z87.891 Personal history of nicotine dependence; Z90.89 Acquired absence of other organs; Z88.5 Allergy status to narcotic agent; Z88.2 Allergy status to sulfonamides
CPT/HCPCS: 71045; 78452; 80048; 83735; 83880; 84484 ×3; 85025; 93005; 93017; 96372 ×2; A9502; G0378 ×3; J1644 ×2; J2785 ×2; 36415; 80053; 84443; 96374

== ENCOUNTER 2025-06-12 07:43 | Emergency (ER) | payer OTHER, MEDICAID ==
[2025-06-12 08:16] LABS: #Basophils Less than 0.03 10x3/uL (0.0-0.2); #Eosinophils 0.15 10x3/uL (0.0-0.7); #Monocytes 0.69 10x3/uL (0.11-0.59); #Neutrophils 3.26 10x3/uL (1.40-6.50); %Basophils 0.3 % (0.0-1.0); %Eosinophils 2.6 % (0.0-10.0); %Lymphocytes 27.4 % (21.0-51.0); %Monocytes 12.1 % (0.0-10.0); %Neutrophils 57.1 % (42.0-75.0); Hematocrit 42.1 % (36.0-47.0); Hemoglobin 13.3 g/dL (12.0-16.0); Mean Corpuscular Hemoglobin 27.5 pg (27.0-31.0); Mean Corpuscular Volume 87.0 fL (78.0-98.0); Platelet Count 235 10x3/uL (130-400); Red Blood Cell (RBC) Count 4.84 mill/uL (4.20-5.40); White Blood Cell (WBC) Count 5.72 10x3/uL (4.8-10.8)
[2025-06-12] MEDS ORDERED: predniSONE 20 MG TAB ONE (08:19)
[2025-06-12] MEDS ORDERED: Magnesium 2 GM/50 ML BAG (IN WATER) ONE (08:19)
[2025-06-12] MEDS ORDERED: Ipratropium Bromide 2.5 ml Neb ONE (08:19)
[2025-06-12] MEDS ORDERED: Albuterol 2.5 MG (3 mL) NEB ONE (08:19)
[2025-06-12 08:34] LABS: ALT (SGPT) 24 U/L (Less than 34); AST (SGOT) 29 U/L (11-34); Albumin 3.8 g/dL (3.1-4.5); Alkaline Phosphatase 61 U/L (40-110); Anion Gap 6 mmol/L (10-20); BUN (Urea Nitrogen) 16 mg/dL (9.8-20.1); Bilirubin, Total 0.6 mg/dL (0.3-1.2); Calc. Creatinine Clearance 0 mL/min (70-130); Calcium 9.3 mg/dL (7.8-10.44); Carbon Dioxide 29 mmol/L (23-31); Chloride 109 mmol/L (98-107); Globulin 2.7 g/dL (2.4-3.5); Glucose 93 mg/dL (80-115); Potassium 3.8 mmol/L (3.5-5.1); Sodium 140 mmol/L (136-145)
== END 2025-06-12 09:12 | disposition home or self-care (01) ==
LOC: ERS 07:43
DX: J44.1 Chronic obstructive pulmonary disease with (acute) exacerbation (principal); I10 Essential (primary) hypertension; E03.9 Hypothyroidism, unspecified; E78.5 Hyperlipidemia, unspecified; R73.03 Prediabetes; Z87.891 Personal history of nicotine dependence; Z79.890 Hormone replacement therapy; Z79.899 Other long term (current) drug therapy; Z79.51 Long term (current) use of inhaled steroids; Z55.6 Problems related to health literacy
CPT/HCPCS: 71045; 80053; 84484; 85025; 87428; 93005; J3475; J7644; 96365; J7512; J7611